=== PATIENT | female | born 1970 | race Caucasian/White ===

== ENCOUNTER → 2018-07-21 09:30 | Outpatient (CLI) | payer MEDICARE, SELFPAY ==
--- NOTE | 2018-07-21 09:37 | DI.MRI.S_ITS ---
PROCEDURE: MR CERVICAL SPINE WO CON INDICATIONS: RIght sided radiculopathy, non conclusive NCS/EMG, numbness TECHNIQUE: Noncontrast sagittal T1 spin echo and T2 fast spin echo, sagittal STIR, foraminal oblique sagittal T2 fast spin echo, and axial gradient echo or T2 fast spin echo through the cervical spine. COMPARISON: None. FINDINGS: Image quality: Excellent. Alignment and Curvature: Straightening of the normal cervical lordosis Bone Marrow: Marrow demonstrates normal overall signal. Spinal Cord: Visualized spinal cord has normal size and signal. No cerebellar tonsillar herniation. Paraspinous Soft Tissues: No paravertebral masses. Prevertebral soft tissues are normal in thickness. C2-C3: Normal appearance. C3-C4: Bilateral uncovertebral arthropathy and posterior intervening disc osteophyte complex, and bilateral facet disease. Mild canal narrowing with effacement of the anterior thecal sac. Mild to moderate right foraminal stenosis, and severe left foraminal narrowing. C4-C5: Bilateral uncovertebral arthropathy and posterior intervening disc osteophyte complex, and bilateral facet arthropathy. Mild canal narrowing. Severe right and left foraminal stenoses. C5-C6: Bilateral uncovertebral arthropathy and posterior intervening disc osteophyte complex, which is asymmetric, right greater than left. Bilateral facet arthropathy. Minimal canal narrowing. Severe right foraminal stenosis. Severe left foraminal stenosis. C6-C7: Bilateral uncovertebral arthropathy and posterior intervening disc osteophyte complex, and bilateral facet arthropathy. Mild right foraminal narrowing. Severe left foraminal stenosis. C7-T1: No central canal narrowing. No right foraminal stenosis. Moderate to severe left foraminal narrowing. IMPRESSION: Multilevel severe left foraminal stenoses as detailed above from C3-T1. No high-grade canal stenosis. Severe right C4-C5 and C5-C6 foraminal narrowing. Dictated by: Jacques Kwan M.D. on 07/21/2018 at 10:41 Approved by: Jacques Kwan M.D. on 07/21/2018 at 10:54
== END ==
PROVIDERS: PCP Family Medicine; Visit Provider Family Medicine
DX: M47.22 Other spondylosis with radiculopathy, cervical region (principal); M48.02 Spinal stenosis, cervical region; G62.9 Polyneuropathy, unspecified; R20.0 Anesthesia of skin
CPT/HCPCS: 72141

== ENCOUNTER → 2018-10-02 11:23 | Outpatient (CLI) | payer MEDICARE, SELFPAY ==
[2018-10-02 11:53] LABS: Add Manual Diff / Slide Review NO; Basophils Absolute Auto 100 /uL (0-100); Basophils Percent Auto 0.8 % (0-2); Eosinophils Absolute Auto 0 /uL (0-450); Eosinophils Percent Auto 0.5 % (2-4); Hematocrit 40.6 % (36-46); Hemoglobin 13.4 g/dL (12.0-16.0); Lymphocytes Absolute Auto 2300 /uL (1100-4500); Lymphocytes Percent Auto 28.2 % (25-40); Mean Corpuscular Hemoglobin 30.9 PG (26-34); Mean Corpuscular Volume 93.5 fL (80-100); Monocytes Absolute Auto 300 /uL (0-900); Monocytes Percent Auto 4.2 % (3-14); Neutrophils Absolute Auto 5400 /uL (1500-7000); Neutrophils Percent Auto 66.3 % (50-75); Platelet Count 410 X10^3/uL (150-400); Red Blood Cell Count 4.34 X10^6/uL (4.0-5.2); Red Cell Distribution Width 15.1 % (11.6-14.8); White Blood Cell Count 8.2 X10^3/uL (4.5-11.0)
[2018-10-02 12:29] LABS: Alanine Aminotransferase 31 IU/L (9-52); Albumin 4.4 g/dL (3.5-5.0); Albumin Globulin Ratio 1.5 (1.0-2.8); Alkaline Phosphatase 74 U/L (38-126); Aspartate Aminotransferase 29 IU/L (14-36); BUN Creatinine Ratio 16.3 (6-22); Bilirubin Total 0.3 mg/dL (0.2-1.3); Blood Urea Nitrogen 13 mg/dL (7-17); Calcium 9.5 mg/dL (8.4-10.2); Carbon Dioxide 28 mmol/L (22-32); Chloride 99 mmol/L (98-107); Cholesterol 175 mg/dL (140-199); Estimated Glomerular Filt Rate > 60.0 mL/min (>60); Globulin 2.9 g/dL (1.7-4.1); Glucose 138 mg/dL (70-100); HDL Cholesterol 35 mg/dL (40-60); HEMOLYSIS < 15 (0-50); LDL Cholesterol Calculated 106 mg/dL (<100); Potassium 3.5 mmol/L (3.4-5.1); Sodium 138 mmol/L (137-145); Total Protein 7.3 g/dL (6.3-8.2); Triglycerides 171 mg/dL (35-150)
[2018-10-02 12:47] LABS: TSH w/ Reflex to FT4 1.84 uIU/mL (0.47-4.68)
== END ==
PROVIDERS: PCP Family Medicine; Visit Provider Family Medicine
DX: I10 Essential (primary) hypertension (principal); N92.0 Excessive and frequent menstruation with regular cycle; E66.01 Morbid (severe) obesity due to excess calories
CPT/HCPCS: 36415; 80053; 80061; 84443; 85025

== ENCOUNTER → 2018-10-06 14:56 | Outpatient (REF) | payer MEDICARE, SELFPAY | LOC: LAB 14:56 | PROVIDERS: PCP Family Medicine; Visit Provider Specialist | CPT/HCPCS: 85610 ==

== ENCOUNTER 2018-11-28 08:39 | Day surgery (SDC) | payer MEDICARE, SELFPAY ==
[2018-11-18 12:22] VITALS: BMI 49.4
[2018-11-28] VITALS (12 sets, daily range): BP systolic 112–165; BP diastolic 68–99; PULSE 62–93; RESP 9–32; TEMP 36.1–36.5; O2SAT 91–97; BMI 48.6
--- NOTE | 2018-11-28 | PATH_ITS ---
[facility] Accession Number: [id number] . 01 Material submitted: . endometrium - ENDOMETRIUM . 02 Diagnosis: Endometrium: Portions of disordered proliferative endometrium; negative for glandular hyperplasia, cytologic atypia, and malignancy. Portions of myometrium, suggestive of possible submucosal leiomyoma, if clinical and imaging findings are concordant. Negative for atypia or malignancy. MRV/12/01/2018 . 02 Electronically signed: . Trish Zhong MD, Pathologist NPI- [id number] . 01 Gross description: . ENDOMETRIUM: Received in formalin are minute fragments of mucoid and hemorrhagic material measuring 0.8 x 0.7 x 0.3 cm in aggregate. Submitted in toto in 1 cassette. /DM /DM . 02 Pathologist provided ICD-10: N85.00 . 02 CPT . 823243 Performed at: 01 [facility] [address], [place], [place] [id number] MD Az Yates MD Phone: [phone] Performed at: 02 [facility] [address] [place], [place] [id number] MD Kylee Ulloa MD Phone: [phone]
--- NOTE | 2018-11-28 07:42 | P.HPOB_ITS ---
History of Present Illness Reason for admission: vaginal bleeding (Menorrhagia) Narrative: Karime Joe is a 48 year old female admitted for endometrial ablation for menorrhagia FORMERLY [facility], [facility]–1983 Medical History (Updated 11/28/18 @ 07:41 by Virginia Fountain MD) RLS (restless legs syndrome) (Acute) Anxiety (Chronic) Asthma (Chronic) Chronic back pain (Chronic) Depression (Chronic) Foot pain (Chronic) Lumbar spine pain (Chronic) Shoulder pain (Chronic) Sore muscles (Chronic) Abnormal Pap smear of cervix (Resolved) Surgical History (Updated 05/16/18 @ 17:38 by Margi Mejia DO) Anesthesia (Resolved) History of shoulder surgery (Resolved ~2010) Status post trigger finger release (Resolved ~2015) History of carpal tunnel repair (~1996) Status post delivery (~1993) Status post delivery (~1995) Status post tubal ligation (~1995) Family History (Updated 02/15/16 @ 00:00 by Conversion Provider) Grandfather Cancer Mother Cervical cancer Early menopause Goiter Hypothyroid Diabetes mellitus Hypertension Social History household members: family Smoking Status: Former smoker Family History (Updated 02/15/16 @ 00:00 by Conversion Provider) Grandfather Cancer Mother Cervical cancer Early menopause Goiter Hypothyroid Diabetes mellitus Hypertension Social History household members: family Smoking Status: Former smoker Meds Home Medications Medication Instructions Recorded Confirmed Type CA PANTOTHENATE/FOLIC ACID/VIT 1 tab PO QDAY #0 08/04/12 07/09/18 History (MULTIVITAMIN) [calcium] #0 03/02/13 07/09/18 History [marijuana] #0 03/16/16 07/09/18 History amitriptyline 50 mg PO HS #60 tab 06/19/17 07/09/18 Rx albuterol sulfate HFA 90 2 puff INHALATION Q4HP PRN #1 inh 01/08/18 07/09/18 Rx mcg/actuation aerosol inhaler omeprazole 40 mg PO QDAY #60 cap 03/17/18 11/28/18 Rx chlorthalidone 25 mg tablet 25 mg PO QDAY #30 tab 08/18/18 11/28/18 Rx meloxicam 15 mg tablet 15 mg PO DAILY #10 tab 10/02/18 Rx clonidine HCl 0.2 mg PO TID #90 tab 10/10/18 11/28/18 Rx pramipexole 0.5 mg tablet See Rx Instructions PO HS #60 tab 10/17/18 11/28/18 Rx venlafaxine ER 225 mg 225 mg PO QDAY #30 tab 10/24/18 11/28/18 Rx tablet,extended release 24 hr metaxalone 800 mg tablet 800 mg PO TID PRN #30 tab 11/05/18 11/28/18 Rx Allergies Allergy/AdvReac Type Severity Reaction Status Date / Time naproxen [NAPROXEN] Allergy Severe THROAT Verified 11/28/18 09:17 SWELLING gabapentin [GABAPENTIN] Allergy Mild MAKES Verified 11/28/18 09:17 RESTLESS LEGS WORSE tomato [TOMATO] Allergy Mild BLISTERS Verified 11/28/18 09:17 ON LIPS NSAIDS (Non-Steroidal Allergy Unknown Verified 11/28/18 09:17 Anti-Inflamma [NSAIDS (NON-STEROIDAL ANTI-INFLAMMA] tramadol [From ULTRAM] Allergy Unknown vomiting Verified 11/28/18 09:17 Review of Systems Review of Systems Patient has severe dysmenorrhea and menorrhagia. She had improvement of her bleeding with Depo-Provera but it caused her extreme weight gain. All systems reviewed & are unremarkable except as noted in HPI and below Exam Vital Signs (past 8 hours): Blood pressure 125/77, pulse of 80 Narrative Exam Narrative: HEENT exam within normal limits. Lungs are clear to auscultation and percussion. Heart is regular rate and rhythm no S3-S4 or murmurs. No thyromegaly. Abdomen is obese with no obvious organomegaly. Normal external genitalia, vagina, cervix. Uterus was not enlarged by ultrasound and endometrial biopsy was negative on 11/12/2018. No adnexal masses on ultrasound. Extremities without edema and nontender Assessment & Plan (1) Morbid obesity with body mass index (BMI) greater than or equal to 50: Current visit: No Status: Chronic (2) Menorrhagia with irregular cycle: Current visit: No Status: Acute Assessment & Plan narrative: Patient with severe dysmenorrhea and menorrhagia who is requesting endometrial ablation. Patient is using a tubal ligation for control. She is aware that endometrial ablation may not control her bleeding and pain. She is aware that she might have scar tissue form inside of her uterus that might cause pain and require hysterectomy to improve. Risk of perforation of the uterus with damage to internal. Abdomen structures such as bowel and bladder discussed. Minimal risk for infection. Possible reaction to medications. Consent form was signed and questions answered.
[2018-11-28] MEDS: LACTATED RINGERS 1,000 ML 100 ML IV ×2 (09:34→11:14)
--- NOTE | 2018-11-28 10:32 | PM.PREOP ---
Pre-operative Note Interval Note History & Physical reviewed/Exam performed by Physician: Yes Changes to H&P: No
--- NOTE | 2018-11-28 11:10 | SUR.OPER ---
Lithotomy on padded OR bed, head on pillow, arms secured on padded arm boards at <90 degrees abduction. Legs secured in padded yellow fins stirrups.
[2018-11-28] MEDS: BUPIVACAINE 0.5% W/ EPI (PF) VIAL 30 ML INJ (12:35)
--- NOTE | 2018-11-28 12:39 | PM.OP.1 ---
Operative Date/Time/Diagnoses Date of procedure: 11/28/18 Time of procedure: 12:39 Pre-op diagnosis: Menorrhagia and dysmenorrhea Post-op diagnosis: same Procedure & Clinicians Procedure: Attempt at NovaSure ablation which was unsuccessful, hysteroscopy with endometrial resection, inadvertent perforation of the uterus at the fundus requiring laparoscopy to document no internal bleeding or damage Same procedure as scheduled: No (Hysteroscopic resection of endometrium and laparoscopy) Indications: Patient with longstanding dysmenorrhea and menorrhagia uncontrolled by other options who requested endometrial ablation. Surgeon: Virginia Fountain Click Yes if Unassisted: Yes Anesthesia Type: General Operative Notes Closure Type: primary Specimen(s): other (Endometrial resection) Estimated Blood Loss (mL): 10 Blood products transfused: none Procedure in detail: Patient was brought to the operating room where she underwent general anesthesia. She was placed in low Yellofin stirrups and prepped and draped in the usual sterile fashion. A check system was reviewed prior to the beginning of the case. Patient had just urinated so no catheterization was performed initially. Warming was with blankets, pulsatile stockings in place and functional, initially IV antibiotics were not indicated. 2 g of Ancef were given after discovering uterine perforation. A single-tooth tenaculum was placed on the anterior lip of the cervix. The cervix was dilated to a #6 Hegar dilator. The NovaSure sound was used to measure the cervix length at 3 cm with the uterine length at 9 cm. The NovaSure device was set at 6 cm uterine length. It was difficult initially to get a uterine width but then it was determined to be 4.5 cm. When the attempt was made to document uterine cavity integrity the integrity was not there. The device was removed. Hysteroscope was placed through the cervix into the uterus with sorbitol solution running in under constant suction. Initially it there did not appear to be any obvious area of perforation. The endometrium was resected with the loop cautery set at 80 w. A small amount of cauterization with the ball cautery was undertaken at 60 w. There appeared to be more than a 1000 cc of loss of of the sorbital so the procedure was stopped. Patient was re-prepped and draped. A [employer] uterine manipulator was placed through the cervix into the uterus with a 3 cc of air put in the balloon. The area of the trocars were injected with 0.5% Marcaine with epinephrine. Incision with made in the umbilicus with the scalpel. The Veress needle was placed in the abdomen and the abdomen insufflated with approximately 3 L of CO2. The 5 mm trocar was placed under direct visualization. There did not appear to be any damage was placement of the trocar. 5 mm trocars were placed in the right left lower quadrant under direct visualization without apparent damage. There was adhesion of the omentum to the anterior abdominal wall in the midline. Right and left tubes and ovaries were found to be normal. Clear fluid was removed with suction. The top of the uterus had a small hole that was not actively bleeding. The CO2 was allowed to escape from the abdomen. The trocars were removed and the skin was closed with 4 0 Monocryl. Counts of instruments and sponges were correct. Patient went to recovery room in good condition. Complications: other (Uterine perforation requiring laparoscopy but no damage to internal structures) Condition: stable Disposition: same day surgery Plan for aftercare: Home if awake and stable
[2018-11-28] MEDS: CEFAZOLIN 2 GM/100 ML FROZ.PIGGY IV (12:43)
[2018-11-28] MEDS: ONDANSETRON 4 MG/2 ML INJ IV ×2 (13:35→14:09)
--- NOTE | 2018-11-28 14:13 | SUR.PHASEII ---
Pt drowsy. C/O stomach pain, denied nausea. Zofran given, quease with pt. Family at bedside. Scant bloody drainage to bandaids x3, scant pink drainage to suman-pad. Call light within reach.
--- NOTE | 2018-11-28 16:15 | SUR.PHASEII ---
ASSUMED CARE OF PT AT 1600. PT AMBULATED TO BATHROOM WITHOUT ANY DIFFICULTLY. REVIEWED DC INSTRUCTIONS WITH PT AND PT FRIEND. NO FURTHER QUESTIONS OR CONCERNS VOICED. DRSG'S TO ABD OBSERVED TO BE C/D/I. MARTHA-PAD OBSERVED TO HAVE SMALL AMOUNT OF OLD BLOOD. PT APPEARED COMFORTABLE AT THAT TIME. IV DC'D AND INTACT. PT DRESSED SELF AND DC TO HOME IN STABLE CONDITION.
== END 2018-11-28 16:15 | disposition home or self-care (01) ==
PROVIDERS: PCP Family Medicine; Visit Provider Specialist
PROC: 0U5B8ZZ Destruction of Endometrium, Via Natural or Artificial Opening Endoscopic (ICD-10-PCS; CPT 58563; principal; 2018-11-28 10:15)
PROC: 0UDB8ZZ Extraction of Endometrium, Via Natural or Artificial Opening Endoscopic (ICD-10-PCS; CPT 58558; 2018-11-28 10:15)
PROC: (CPT 49320; 2018-11-28 10:15)
DX: N92.1 Excessive and frequent menstruation with irregular cycle (principal); N94.6 Dysmenorrhea, unspecified; N99.71 Accidental puncture and laceration of a genitourinary system organ or structure during a genitourinary system procedure; E66.01 Morbid (severe) obesity due to excess calories; J45.909 Unspecified asthma, uncomplicated; G25.81 Restless legs syndrome; K21.9 Gastro-esophageal reflux disease without esophagitis; F41.9 Anxiety disorder, unspecified; Z68.43 Body mass index [BMI] 50.0-59.9, adult; Z87.891 Personal history of nicotine dependence
CPT/HCPCS: 49320; 58563; 88305; J0330; J0690; J1100; J2405; J2704; J3010

== ENCOUNTER 2019-01-11 11:11 | Emergency (ER) | payer MEDICARE, MEDICAID, SELFPAY ==
[2019-01-11 11:23] VITALS: BP 159/89; PULSE 96; RESP 18; TEMP 36.4; O2SAT 97; BMI 48.9
--- NOTE | 2019-01-11 11:41 | PC.NURSE ---
Pt out in the sun and has sunburn bilateral legs, right>left. Applied a mix of silvidene cream and lidocaine ointment to area then covered it with telfa and kerlix. Instructed pt how to apply.
--- NOTE | 2019-01-11 12:52 | ED.EXTPRO ---
HPI - Extremity Problem General Chief complaint: Extremity Problem,Nontraumatic Stated complaint: LEFT SHOULDER PAIN,CRAMPING AND BACK PAIN Time Seen by Provider: 01/11/19 11:13 Source: patient and family Mode of arrival: ambulatory Limitations: no limitations History of Present Illness HPI Narrative: Patient comes to the emergency department complaining of left shoulder pain for last several weeks since a pulling injury. Patient also complains of her left-sided sciatica ?acting up? since recurrence of her uterine cramps. Patient states she has had ongoing cramps in her uterus, and his seen Dr. Fountain, who has done an ablation. Patient states that the ablation seem to work initially, but that now, she gets cramps and irregular bleeding again like she used to. She states that Dr. Fountain is planning to do a hysterectomy next if the patient's symptoms continue. The patient states that her uterine cramping has always set off her back pain and sciatica. Patient states that she has not had any specific injury to the area to set off the symptoms. She denies any new or different symptoms. No fevers. No dysuria. No abdominal pain other than the cramping. No nausea or vomiting. Patient has a history of chronic pain syndrome, as well as fibromyalgia, and has multiple medication allergies, including NSAIDs, Ultram, and most muscle relaxers, as well as gabapentin. The patient states she is mainly here for symptomatic management. She states that she has talked to Dr. Mejia about potentially getting an MRI of her shoulder, and that Dr. Mejia was working on this. No other complaints at this time. Related Data Home Medications Medication Instructions Recorded Confirmed CA PANTOTHENATE/FOLIC ACID/VIT 1 tab PO QDAY #0 08/04/12 01/11/19 (MULTIVITAMIN) [calcium] #0 03/02/13 12/05/18 [marijuana] #0 03/16/16 12/05/18 Previous Rx's Medication Instructions Recorded albuterol sulfate HFA 90 2 puff INHALATION Q4HP PRN #1 inh 01/08/18 mcg/actuation aerosol inhaler omeprazole 40 mg PO QDAY #60 cap 03/17/18 clonidine HCl 0.2 mg PO TID #90 tab 10/10/18 pramipexole 0.5 mg tablet See Rx Instructions PO HS #60 tab 10/17/18 venlafaxine ER 225 mg 225 mg PO QDAY #30 tab 10/24/18 tablet,extended release 24 hr meloxicam 15 mg tablet 15 mg PO DAILY #30 tab 12/12/18 metaxalone 800 mg tablet 800 mg PO TID PRN #30 tab 12/12/18 chlorthalidone 25 mg tablet 25 mg PO QDAY #30 tab 12/29/18 hydrocodone-acetaminophen 1 tab PO Q6H PRN #7 tab 01/11/19 Allergies Allergy/AdvReac Type Severity Reaction Status Date / Time naproxen [NAPROXEN] Allergy Severe THROAT Verified 01/11/19 11:23 SWELLING gabapentin [GABAPENTIN] Allergy Mild MAKES Verified 01/11/19 11:23 RESTLESS LEGS WORSE tomato [TOMATO] Allergy Mild BLISTERS Verified 01/11/19 11:23 ON LIPS NSAIDS (Non-Steroidal Allergy Unknown Verified 01/11/19 11:23 Anti-Inflamma [NSAIDS (NON-STEROIDAL ANTI-INFLAMMA] tramadol [From ULTRAM] Allergy Unknown vomiting Verified 01/11/19 11:23 Review of Systems Constitutional Denies chills, Denies fever(s), Denies lethargy and Denies weakness Eyes Denies change in vision, Denies eye discharge, Denies irritation and Denies loss of vision ENT Ears, Nose, Mouth, and Throat: Denies change in voice, Denies neck pain and Denies sore throat Cardiovascular Denies chest pain, Denies irregular heart rhythm, Denies lightheadedness, Denies palpitations, Denies dyspnea, Denies dyspnea on exertion and Denies orthopnea Respiratory Denies cough, Denies dyspnea, Denies dyspnea on exertion and Denies wheezing Gastrointestinal Gastrointestinal: Denies change in bowel habits, Reports cramping, Denies diarrhea, Denies nausea and Denies vomiting Genitourinary Denies hematuria, Denies flank pain, Denies urinary incontinence and Denies urinary urgency Musculoskeletal Denies neck pain Comments: Back pain; sciatica; left shoulder pain. Integumentary/Breasts Denies pruritus, Denies erythema, Denies rash and Denies wounds Neurologic Denies confusion, Denies loss of vision and Denies weakness Psychiatric Denies anxiety, Denies confusion, Denies depression, Denies homicidal ideation and Denies suicidal ideation Endocrine Denies palpitations Hematologic/Lymphatic Denies easy bruising Allergic/Immunologic Denies wheezing PFS Medical History RLS (restless legs syndrome) (Acute) Anxiety (Chronic) Asthma (Chronic) Chronic back pain (Chronic) Depression (Chronic) Foot pain (Chronic) Lumbar spine pain (Chronic) Shoulder pain (Chronic) Sore muscles (Chronic) Abnormal Pap smear of cervix (Resolved) Surgical History Anesthesia (Resolved) History of shoulder surgery (Resolved ~2010) Status post trigger finger release (Resolved ~2015) History of carpal tunnel repair (~1996) Status post delivery (~1993) Status post delivery (~1995) Status post tubal ligation (~1995) Family History (Updated 02/15/16 @ 00:00 by Conversion Provider) Grandfather Cancer Mother Cervical cancer Early menopause Goiter Hypothyroid Diabetes mellitus Hypertension Social History household members: family Smoking Status: Former smoker Family History Grandfather Cancer Mother Cervical cancer Early menopause Goiter Hypothyroid Diabetes mellitus Hypertension Social History household members: family Smoking Status: Former smoker Exam Initial Vital Signs Initial Vital Signs: Vital Signs Temperature 97.5 F L 01/11/19 11:23 Pulse Rate 96 H 01/11/19 11:23 Respiratory Rate 18 01/11/19 11:23 Blood Pressure 159/89 H 01/11/19 11:23 Pulse Oximetry 97 01/11/19 11:23 Course Course Narrative: Patient was treated symptomatically in the emergency department with a dose of IM Dilaudid. The patient had ongoing symptoms, for which she had already seen her primary care physician, and did not display any signs or symptoms concerning for a more serious cause of her condition. As such, I did not order further workup. I gave the patient a small prescription for Vicodin, 7 tablets. This patient has an ongoing chronic pain history, and has a stated allergy to every other form of pain control besides narcotics. I have advised her to follow up with her primary care physician to discuss a more long-term plan to manage her pain, as well as to discuss any potential further workup. We have discussed the usual indications for return. Orders Ordered: Discontinued Medications Hydromorphone HCl (Dilaudid) 1 mg IM NOW ONE Stop: 01/11/19 12:52 Last Admin: 01/11/19 13:19 Dose: 1 mg Vital Signs - 8 hr 01/11/19 11:23 01/11/19 13:44 Temperature 97.5 F L Pulse Rate 96 H 80 Respiratory Rate 18 18 Blood Pressure 159/89 H 146/80 H Pulse Oximetry 97 93 MDM - Extremity (Nontraumatic) Medical Records Attestation: I reviewed the patient's medical records. Discharge Plan Departure Patient Disposition: Home Clinical Impression: Acute shoulder pain Qualifiers: Laterality: left Qualified Code(s): M25.512 - Pain in left shoulder Back pain Qualifiers: Back pain location: low back pain Chronicity: chronic Back pain laterality: left Sciatica presence: with sciatica Sciatica laterality: sciatica of left side Qualified Code(s): M54.42 - Lumbago with sciatica, left side Discharge Date/Time: 01/11/19 13:49 Instructions: DI for Back Pain With Sciatica, DI for Shoulder Pain Activity Restrictions/Additional Instructions: Please call your primary care physician tomorrow morning to set up a follow-up appointment for further management of your symptoms. Prescriptions: New hydrocodone-acetaminophen 5-325 mg tablet 1 tab PO Q6H PRN (Reason: pain) Qty: 7 RF: 0 No Action CA PANTOTHENATE/FOLIC ACID/VIT (MULTIVITAMIN) 1 tab PO QDAY Qty: 0 RF: 0 [calcium] Qty: 0 RF: 0 [marijuana] Qty: 0 RF: 0 omeprazole 20 mg capsule,delayed release(DR/EC) 40 mg PO QDAY Qty: 60 RF: 11 clonidine HCl 0.2 mg tablet 0.2 mg PO TID Qty: 90 RF: 1 pramipexole 0.5 mg tablet See Rx Instructions PO HS Qty: 60 RF: 2 venlafaxine 225 mg tablet extended release 24hr 225 mg PO QDAY Qty: 30 RF: 2 meloxicam 15 mg tablet 15 mg PO DAILY Qty: 30 RF: 0 metaxalone 800 mg tablet 800 mg PO TID PRN (Reason: muscle pain) Qty: 30 RF: 0 chlorthalidone 25 mg tablet 25 mg PO QDAY Qty: 30 RF: 3 albuterol sulfate [Ventolin HFA] 90 mcg/actuation HFA aerosol inhaler 2 puff INHALATION Q4HP PRN (Reason: bronchospasm) Qty: 1 RF: 2 Referrals: Margi Mejia DO [Primary Care Provider] -
[2019-01-11] MEDS: HYDROMORPHONE 1 MG INJ IM (13:19)
[2019-01-11 13:44] VITALS: BP 146/80; PULSE 80; RESP 18; O2SAT 93
== END 2019-01-11 13:49 | disposition home or self-care (01) ==
PROVIDERS: Emergency Provider Emergency Medicine; PCP Family Medicine
DX: M25.512 Pain in left shoulder (principal); M54.42 Lumbago with sciatica, left side; X50.9XXA Other and unspecified overexertion or strenuous movements or postures, initial encounter
CPT/HCPCS: 96372; 99282; 99283; J1170

== ENCOUNTER → 2019-02-03 16:03 | Outpatient (CLI) | payer MEDICARE, SELFPAY ==
--- NOTE | 2019-02-03 16:08 | DI.MRI.S_ITS ---
PROCEDURE: MR SHOULDER LT WO CON INDICATIONS: left shoulder pain TECHNIQUE: Noncontrast oblique coronal T2 fast spin echo with fat saturation, oblique sagittal T1 spin echo and T2 fast spin echo with fat saturation, axial T1 spin echo and T2 fast spin echo with fat saturation through the shoulder. COMPARISON: None. FINDINGS: Image quality: Motion degradation, and suboptimal study due to patient positioning Rotator cuff: Supraspinatus tendinopathy with partial thickness articular bursal sided tear. Infraspinatus tendinopathy and thickening. The teres minor appears grossly intact. Subscapularis tendinopathy without discrete tear. No atrophy of the rotator cuff musculature. Bones and bursae: No bone marrow contusions or fractures. Mild acromioclavicular joint degeneration. The acromion demonstrates conventional anatomy, without an os acromiale. Mild subacromial-subdeltoid bursitis. Capsule and soft tissues: No discrete labral tear. There is mild probably age related degeneration of superior labrum. The long head of the biceps tendon demonstrates normal location and morphology. The rotator interval appears normal, without fibrosis. The coracohumeral ligament is normal in thickness. IMPRESSION: Supraspinatus partial-thickness articular and bursal sided tear. No full-thickness or retracted defect seen. Mild infraspinatus tendinopathy. Subscapularis tendinopathy and thickening. Dictated by: Jacques Kwan M.D. on 02/03/2019 at 17:31 Approved by: Jacques Kwan M.D. on 02/03/2019 at 17:36
== END ==
PROVIDERS: PCP Family Medicine; Visit Provider Family Medicine
DX: S46.812A Strain of other muscles, fascia and tendons at shoulder and upper arm level, left arm, initial encounter (principal)
CPT/HCPCS: 73221

== ENCOUNTER → 2019-02-12 11:44 | Outpatient (CLI) | payer MEDICARE, SELFPAY ==
[2019-02-12 12:30] LABS: BUN Creatinine Ratio 21.4 (6-22); Blood Urea Nitrogen 15 mg/dL (7-17); Calcium 10.1 mg/dL (8.4-10.2); Carbon Dioxide 33 mmol/L (22-32); Chloride 98 mmol/L (98-107); Estimated Glomerular Filt Rate > 60.0 mL/min (>60); Glucose 89 mg/dL (70-100); HEMOLYSIS < 15 (0-50); Potassium 3.6 mmol/L (3.4-5.1); Sodium 141 mmol/L (137-145)
[2019-02-12 12:35] LABS: Hemoglobin A1C% w Est Avg Glu 5.2 % (4.0-6.0)
== END ==
PROVIDERS: PCP Family Medicine; Visit Provider Family Medicine
DX: R73.01 Impaired fasting glucose (principal)
CPT/HCPCS: 36415; 80048; 83036

== ENCOUNTER 2019-05-07 12:52 | Emergency (ER) | payer MEDICARE, SELFPAY ==
[2019-05-07 13:19] VITALS: BP 141/82; PULSE 99; RESP 16; TEMP 36.5; O2SAT 98
--- NOTE | 2019-05-07 13:56 | ED_ITS ---
HPI - Extremity Injury (Upper) <Luisa Hernandez PA-C - Last Filed: 05/07/19 19:08> General Chief Complaint: Extremity Injury, Upper Stated Complaint: re injured left shoulder Time Seen by Provider: 05/07/19 13:45 Source: patient Mode of arrival: Ambulatory Limitations: no limitations History of Present Illness HPI narrative: This 48-year-old female returns to ED due to recurrent left shou lder injury. She states that her chronic rotator cuff pain was actually getting better with home exercises, however 2 weeks ago she reached out to keep a bed frame from falling on her grandchild and injured it again. She states she has been unable to get in to see her PCP for this. She states it had started to get a little bit better but yesterday she injured it again. She stepped on a toy and slipped on a wood floor landing on her elbows and knees and felt like she jammed her shoulders. She states that the right shoulder does not hurt, hands and knees were a little bit sore but not particularly bothersome, left shoulder quite painful however. She states that pain is worse with movement. She denies any new weakness or paresthesia. She states pain radiates into her neck and around her shoulder but does not have any pain in her neck otherwise, she denies any other new injury. Related Data Home Medications Medication Instructions Recorded Confirmed multivitamin 1 tab PO DAILY #0 08/04/12 05/07/19 [marijuana] 1 dose MISCELLANEOUS PRN PRN #0 03/16/16 05/07/19 cholecalciferol (vitamin D3) 50 2,000 unit PO DAILY 02/12/19 05/07/19 mcg (2,000 unit) capsule chlorthalidone 25 mg PO DAILY 05/07/19 05/07/19 clonidine HCl 0.2 mg PO DAILY 05/07/19 05/07/19 omeprazole 20 mg PO DAILY 05/07/19 05/07/19 pramipexole 0.5 - 1 mg PO BEDTIME 05/07/19 05/07/19 pramipexole 0.5 mg PO QAM 05/07/19 05/07/19 venlafaxine 225 mg PO DAILY 05/07/19 05/07/19 Previous Rx's Medication Instructions Recorded albuterol sulfate 90 mcg/actuation 2 puff INHALATION Q4HP PRN #1 inh 01/08/18 aerosol inhaler metaxalone 800 mg tablet 800 mg PO TID PRN #90 tab 02/12/19 meloxicam 15 mg tablet 15 mg PO DAILY #30 tab 04/23/19 hydrocodone-acetaminophen 1 tab PO Q6H PRN #7 tab 05/07/19 Allergies Allergy/AdvReac Type Severity Reaction Status Date / Time naproxen [NAPROXEN] Allergy Severe THROAT Verified 05/07/19 13:22 SWELLING gabapentin [GABAPENTIN] Allergy Mild MAKES Verified 05/07/19 13:22 RESTLESS LEGS WORSE tomato [TOMATO] Allergy Mild BLISTERS Verified 05/07/19 13:22 ON LIPS NSAIDS (Non-Steroidal Allergy Unknown Verified 05/07/19 13:22 Anti-Inflamma [NSAIDS (NON-STEROIDAL ANTI-INFLAMMA] tramadol [From ULTRAM] Allergy Unknown vomiting Verified 05/07/19 13:22 Review of Systems <Luisa Hernandez PA-C - Last Filed: 05/07/19 19:08> Review of Systems ROS Unobtainable: All systems reviewed & are unremarkable except as noted in HPI and below Patient History <Luisa Hernandez PA-C - Last Filed: 05/07/19 19:08> Medical History Abnormal Pap smear of cervix (Resolved) Anxiety (Chronic) Asthma (Chronic) Chronic back pain (Chronic) Depression (Chronic) Foot pain (Chronic) GERD (gastroesophageal reflux disease) (Acute) Lumbar spine pain (Chronic) RLS (restless legs syndrome) (Acute) Shoulder pain (Chronic) Sore muscles (Chronic) Traumatic tear of supraspinatus tendon of left shoulder (Acute) Surgical History Anesthesia (Resolved) History of carpal tunnel repair (~1996) History of shoulder surgery (Resolved ~2010) Status post delivery (~1993) Status post delivery (~1995) Status post trigger finger release (Resolved ~2015) Status post tubal ligation (~1995) Social History household members: family Smoking Status: Former smoker alcohol intake frequency: 0-2 drinks per day Substance Use Type: marijuana Exam <Luisa Hernandez PA-C - Last Filed: 05/07/19 19:08> Narrative Exam Narrative: GENERAL APPEARANCE: Patient sitting comfortably, in no distress. LUNGS: Clear to auscultation bilaterally. HEART: Rate and rhythm regular without murmur, normal S1 and S2, no S3 or S4. MUSCULOSKELETAL: Left shoulder tender at the anterior lateral through posterior lateral margins throughout. No point tenderness over the clavicle. She is able to abduct to less than 90? with tenderness. Strength on resisted abduction and adduction appear intact. No tenderness over the distal left upper extremity or wrist. [employer] strength 5/5 NEUROVASCULAR: Left hand is warm and pink with brisk cap refill, sensation grossly intact Initial Vital Signs Initial Vital Signs: Vital Signs Temperature 97.7 F 05/07/19 13:19 Pulse Rate 99 H 05/07/19 13:19 Respiratory Rate 16 05/07/19 13:19 Blood Pressure 141/82 H 05/07/19 13:19 Pulse Oximetry 98 05/07/19 13:19 <Anjelica Drummond DO - Last Filed: 05/08/19 07:35> Initial Vital Signs Initial Vital Signs: Vital Signs Temperature 97.7 F 05/07/19 13:19 Pulse Rate 99 H 05/07/19 13:19 Respiratory Rate 16 05/07/19 13:19 Blood Pressure 141/82 H 05/07/19 13:19 Pulse Oximetry 98 05/07/19 13:19 Course <Luisa Hernandez PA-C - Last Filed: 05/07/19 19:08> Course Additional Information: Patient has known rotator cuff syndrome. This had been improving until re-injured. She did fall last night. No acute findings on x- ray today. Reviewed state controlled substance database and patient has not received any for several months. Given a small supply of [place] if needed for the next few days as this did help her symptoms somewhat while here. She will resume gentle [id number] exercises and follow up with her PCP next week Orders Ordered: Discontinued Medications Hydrocodone Bitart/Acetaminophen ([place] 5/325) 1 tab PO NOW ONE Stop: 05/07/19 14:16 Last Admin: 05/07/19 14:30 Dose: 1 tab Documented by: [place] Vital Signs Vital signs: Vital Signs - 8 hr 05/07/19 13:19 05/07/19 15:14 Temperature 97.7 F Pulse Rate 99 H 92 H Respiratory Rate 16 14 Blood Pressure 141/82 H Blood Pressure [Right Arm] 130/80 Pulse Oximetry 98 94 <Anjelica Drummond DO - Last Filed: 05/08/19 07:35> Orders Ordered: Discontinued Medications Hydrocodone Bitart/Acetaminophen ([place] 5/325) 1 tab PO NOW ONE Stop: 05/07/19 14:16 Last Admin: 05/07/19 14:30 Dose: 1 tab Documented by: [place] Vital Signs Vital signs: Vital Signs - 8 hr 05/07/19 13:19 05/07/19 15:14 Temperature 97.7 F Pulse Rate 99 H 92 H Respiratory Rate 16 14 Blood Pressure 141/82 H Blood Pressure [Right Arm] 130/80 Pulse Oximetry 98 94 MDM - Extremity Injury (Upper) <Luisa Hernandez PA-C - Last Filed: 05/07/19 19:08> Imaging Data shoulder: Radiologist's impression: [address] [address] XRay Report Signed Patient: Karime Joe EMR#: [id number] : 1970Acct:[id number] Age/Sex: 48 / FDate of Service: 05/07/19 Loc: ED Accession Number: [id number] Procedure: XR shoulder LT min 2V Ordering Provider: Luisa Hernandez P.A-C PROCEDURE: XR SHOULDER LT MIN 2V INDICATIONS: rot cuff synd, fall last night TECHNIQUE: 3 views of the shoulder were acquired. COMPARISON: [facility], SHOULDER MINIMUM 2VIEW RIGHT, 01/18/2017, 12:01. [facility], SHOULDER MINIMUM 2VIEW RIGHT, 02/28/2012, 15:44. FINDINGS: Bones: No fractures or dislocations. No suspicious bony lesions. Visualized ribs appear intact. Soft tissues: No suspicious soft tissue calcifications. IMPRESSION: Normal for age, source of current pain after trauma symptoms is not seen. Dictated by: Huan Pfeiffer M.D. on 05/07/2019 at 14:57 Approved by: Huan Pfeiffer M.D. on 05/07/2019 at 14:58 Discharge Plan Departure Patient Disposition: Home Clinical Impression: Rotator cuff syndrome Qualifiers: Laterality: left Qualified Code(s): M75.102 - Unspecified rotator cuff tear or rupture of left shoulder, not specified as traumatic Discharge Date/Time: 05/07/19 15:24 Instructions: DI for Rotator Cuff Injury Activity Restrictions/Additional Instructions: I think you have restrained your rotator cuff again, however there was no acute findings such as a broken bone on her x-ray. I have given you a little bit of pain medicine to have on hand for the next couple of days in case you need. Please avoid lifting and stressing the shoulder, but you can do gentle [id number] exercises like the pendulum that we talked about. Please make sure you do those few times a day to keep your range of motion. We have scheduled you for a follow-up with Dr. Mejia on Saturday, the , check in at 2:45 p.m., that will be good timing to assess your progress and see whether you may need further testing or a referral. Please return if you have any acutely worsening symptoms in the interim Prescriptions: New hydrocodone-acetaminophen 5-325 mg tablet 1 tab PO Q6H PRN (Reason: acute rotator cuff pain) Qty: 7 RF: 0 No Action multivitamin Tablet 1 tab PO DAILY Qty: 0 RF: 0 [marijuana] 1 dose miscellaneous PRN PRN (Reason: as directed) Qty: 0 RF: 0 meloxicam 15 mg tablet 15 mg PO DAILY Qty: 30 RF: 0 albuterol sulfate [Ventolin HFA] 90 mcg/actuation HFA aerosol inhaler 2 puff INHALATION Q4HP PRN (Reason: bronchospasm) Qty: 1 RF: 2 cholecalciferol (vitamin D3) 2,000 unit capsule 2,000 unit PO DAILY RF: 0 metaxalone 800 mg tablet 800 mg PO TID PRN (Reason: muscle pain) Qty: 90 RF: 1 pramipexole 0.5 mg tablet 0.5 - 1 mg PO BEDTIME RF: 0 chlorthalidone 25 mg tablet 25 mg PO DAILY RF: 0 pramipexole 0.5 mg tablet 0.5 mg PO QAM RF: 0 clonidine HCl 0.2 mg tablet 0.2 mg PO DAILY RF: 0 omeprazole 20 mg capsule,delayed release(DR/EC) 20 mg PO DAILY RF: 0 venlafaxine 225 mg tablet extended release 24hr 225 mg PO DAILY RF: 0 Referrals: Margi Mejia DO [Primary Care Provider] -
--- NOTE | 2019-05-07 14:15 | DI.RAD.S_ITS ---
PROCEDURE: XR SHOULDER LT MIN 2V INDICATIONS: rot cuff synd, fall last night TECHNIQUE: 3 views of the shoulder were acquired. COMPARISON: [facility], SHOULDER MINIMUM 2VIEW RIGHT, 01/18/2017, 12:01. [facility], SHOULDER MINIMUM 2VIEW RIGHT, 02/28/2012, 15:44. FINDINGS: Bones: No fractures or dislocations. No suspicious bony lesions. Visualized ribs appear intact. Soft tissues: No suspicious soft tissue calcifications. IMPRESSION: Normal for age, source of current pain after trauma symptoms is not seen. Dictated by: Huan Pfeiffer M.D. on 05/07/2019 at 14:57 Approved by: Huan Pfeiffer M.D. on 05/07/2019 at 14:58
[2019-05-07] MEDS: HYDROCODONE/ACET 5/325 TABLET 1 TAB PO (14:30)
[2019-05-07 15:14] VITALS: BP 130/80; PULSE 92; RESP 14; O2SAT 94
== END 2019-05-07 15:24 | disposition home or self-care (01) ==
PROVIDERS: Emergency Provider Internal Medicine; PCP Family Medicine
DX: M75.102 Unspecified rotator cuff tear or rupture of left shoulder, not specified as traumatic (principal)
CPT/HCPCS: 73030; 99282; 99283

== ENCOUNTER → 2019-05-25 08:46 | Outpatient (CLI) | payer MEDICARE, SELFPAY ==
--- NOTE | 2019-05-25 08:49 | DI.MRI.S_ITS ---
PROCEDURE: MR SHOULDER LT WO CON INDICATIONS: left shoulder injury TECHNIQUE: Noncontrast oblique coronal T2 fast spin echo with fat saturation, oblique sagittal T1 spin echo and T2 fast spin echo with fat saturation, axial T1 spin echo and T2 fast spin echo with fat saturation through the shoulder. COMPARISON: [facility], MR, MR SHOULDER LT WO CON, 02/03/2019, 16:15. FINDINGS: Image quality: Diagnostic. Rotator cuff: No full-thickness or high-grade partial-thickness tear of the rotator cuff is identified. However, there is increased signal identified involving the supraspinatus and subscapularis tendons without significant tearing. The infraspinatus and teres minor tendons are unremarkable. There is no significant atrophy of the rotator cuff muscles. Bones and bursae: No acute fracture, dislocation, or suspicious osseous lesions is evident involving the osseous structures of the shoulder. There is a small glenohumeral joint effusion. Early degenerative changes of the glenohumeral joint are present. There are moderate degenerative changes of the acromioclavicular joint. Thickening of the subacromial subdeltoid bursa is present without significant fluid contained within the bursa. Capsule and soft tissues: Evaluation of the labrum and the glenohumeral ligaments is suboptimal without intra-articular contrast. However, there is increased signal identified in the labrocartilaginous junction along the superior margin of the labrum. No detached fragments are appreciated. The long head of the biceps tendon is normally positioned within the bicipital groove and appears to be grossly intact. No acute injuries are suspected involving the glenohumeral ligaments. IMPRESSION: 1. Mild supraspinatus and infraspinatus tendinopathy without significant tearing. 2. Small to moderate-sized superior labral tear. 3. Qanx-qw-[id number] degenerative changes of the left shoulder joints. 4. Small glenohumeral joint effusion. Dictated by: Dhiraj Lauren M.D. on 05/25/2019 at 9:56 Approved by: Dhiraj Lauren M.D. on 05/25/2019 at 10:17
== END ==
PROVIDERS: PCP Family Medicine; Visit Provider Family Medicine
DX: S49.92XA Unspecified injury of left shoulder and upper arm, initial encounter (principal); S43.432A Superior glenoid labrum lesion of left shoulder, initial encounter; M25.412 Effusion, left shoulder; X58.XXXA Exposure to other specified factors, initial encounter
CPT/HCPCS: 73221

== ENCOUNTER 2019-10-25 19:56 | Emergency (ER) | payer MEDICARE, SELFPAY ==
[2019-10-25 20:06] VITALS: BP 114/78; PULSE 100; RESP 16; TEMP 36.6; O2SAT 97; BMI 50.5
--- NOTE | 2019-10-25 21:14 | ED_ITS ---
HPI - Wound/Laceration General Chief Complaint: Wound/Laceration Stated Complaint: fishing hook in index finger right hand Time Seen by Provider: 10/25/19 20:59 Source: patient Mode of arrival: Ambulatory Limitations: no limitations History of Present Illness HPI narrative: 49-year-old female here for evaluation of a fishhook stuck in her right index finger. She is up-to-date on her tetanus shot. She stated that it was stuck in her right thumb this will however she removed it from the thumb but could not remove the fishhook from her finger Related Data Home Medications Medication Instructions Recorded Confirmed multivitamin 1 tab PO DAILY #0 08/04/12 06/15/19 [marijuana] 1 dose MISCELLANEOUS PRN PRN #0 03/16/16 06/15/19 cholecalciferol (vitamin D3) 50 2,000 unit PO DAILY 02/12/19 06/15/19 mcg (2,000 unit) capsule omeprazole 20 mg PO DAILY 05/07/19 06/15/19 Previous Rx's Medication Instructions Recorded albuterol sulfate 2.5 mg INHALATION Q4-6H PRN #90 ml 06/15/19 albuterol sulfate 90 mcg/actuation 2 puff INHALATION Q4HP PRN #1 inh 07/14/19 aerosol inhaler hydrocodone 5 mg-acetaminophen 325 1 tab PO Q4H PRN #30 tab 07/16/19 mg tablet venlafaxine 225 mg tablet,extended 225 mg PO DAILY #30 tab 08/03/19 release 24 hr chlorthalidone 25 mg tablet 25 mg PO DAILY #30 tab 08/24/19 meloxicam 15 mg tablet 15 mg PO DAILY #90 tab 09/04/19 tizanidine 4 mg capsule 4 mg PO Q6-8H PRN #30 cap 09/15/19 clonidine HCl 0.2 mg tablet 0.2 mg PO DAILY #90 tab 09/18/19 pramipexole 0.5 mg tablet See Rx Instructions .ROUTE 10/21/19 .COMPLEX #90 tab Allergies Allergy/AdvReac Type Severity Reaction Status Date / Time naproxen [NAPROXEN] Allergy Severe THROAT Verified 06/15/19 10:49 SWELLING gabapentin [GABAPENTIN] Allergy Mild MAKES Verified 06/15/19 10:49 RESTLESS LEGS WORSE tomato [TOMATO] Allergy Mild BLISTERS Verified 06/15/19 10:49 ON LIPS NSAIDS (Non-Steroidal Allergy Unknown Verified 06/15/19 10:49 Anti-Inflamma [NSAIDS (NON-STEROIDAL ANTI-INFLAMMA] tramadol [From ULTRAM] Allergy Unknown vomiting Verified 06/15/19 10:49 Review of Systems Musculoskeletal Comments: Right index finger pain Integumentary/Breasts Comments: [place] stuck in right index finger Hematologic/Lymphatic Hematologic/Lymphatic: Denies easy bleeding and Denies easy bruising Patient History Medical History Abnormal Pap smear of cervix (Resolved) Anxiety (Chronic) Asthma (Chronic) Chronic back pain (Chronic) Depression (Chronic) Foot pain (Chronic) GERD (gastroesophageal reflux disease) (Acute) Lumbar spine pain (Chronic) RLS (restless legs syndrome) (Acute) Shoulder pain (Chronic) Sore muscles (Chronic) Superior glenoid labrum lesion of left shoulder (Acute) Traumatic tear of supraspinatus tendon of left shoulder (Acute) Surgical History Anesthesia (Resolved) History of carpal tunnel repair (~1996) History of shoulder surgery (Resolved ~2010) Status post delivery (~1993) Status post delivery (~1995) Status post trigger finger release (Resolved ~2015) Status post tubal ligation (~1995) Social History household members: family Smoking Status: Former smoker Smoking Status: Former smoker alcohol intake frequency: 0-2 drinks per day Substance Use Type: marijuana Exam Initial Vital Signs Initial Vital Signs: Vital Signs Temperature 97.8 F 10/25/19 20:06 Pulse Rate 100 H 10/25/19 20:06 Respiratory Rate 16 10/25/19 20:06 Blood Pressure 114/78 10/25/19 20:06 Pulse Oximetry 97 10/25/19 20:06 Const General: cooperative and healthy appearing Cardio Pulses: radial pulses present on the right Skin Other: Patient with small puncture wound on the pad of her right thumb where the hook initially was. There is no active bleeding. Patient with a fishhook stuck on the pad of her right index finger. Neuro Sensory Exam: no sensory deficits noted Extrem General: capillary refill normal Procedures Foreign Body OTHER Time Out Performed: yes Site: right and other (Index finger) Description of foreign body: other ([place]) Sedation/Analgesia: none Technique: manual removal and incision made to facilitate removal Confirmed by:: direct visualization Complications: none Post-procedure exam: awake, alert Neurovascular: normal distal pulse Nerve Block Nerve Block 1: Time out performed: Yes Local Anesthetic: lidocaine 1% Amount of anesthesia used (mL): 4 Side: right Nerve Blocks: digital (Index finger) Procedure Successful: Yes Patient Tolerated Procedure: Well Complications: none Course Orders Ordered: Discontinued Medications Lidocaine/Sodium Bicarbonate (Buffered Lidocaine 10 Ml Syr) 10 ml INJ NOW ONE Stop: 10/25/19 21:19 Last Admin: 10/25/19 21:29 Dose: 10 ml Documented by: SCANAPO Vital Signs Vital signs: Vital Signs - 8 hr 10/25/19 20:06 Temperature 97.8 F Pulse Rate 100 H Respiratory Rate 16 Blood Pressure 114/78 Pulse Oximetry 97 MDM - Wound/Laceration MDM Narrative Medical decision making narrative: Patient is up-to-date on tetanus. The fishhook was removed without incident. Given return precautions and follow-up instructions. Discharge Plan Departure Patient Disposition: Home Clinical Impression: Fishing hook foreign body Qualifiers: Encounter type: initial encounter Qualified Code(s): W45.8XXA - Other foreign body or object entering through skin, initial encounter Discharge Date/Time: 10/25/19 21:45 Activity Restrictions/Additional Instructions: You can wash your hands like normal and I recommend that you wash your hands with soap and water frequently. Return to the emergency department for any new or worsening symptoms Prescriptions: No Action multivitamin Tablet 1 tab PO DAILY Qty: 0 RF: 0 [marijuana] 1 dose miscellaneous PRN PRN (Reason: as directed) Qty: 0 RF: 0 albuterol sulfate [Ventolin HFA] 90 mcg/actuation HFA aerosol inhaler 2 puff INHALATION Q4HP PRN (Reason: bronchospasm) Qty: 1 RF: 2 hydrocodone-acetaminophen 5-325 mg tablet 1 tab PO Q4H PRN (Reason: acute rotator cuff pain) Qty: 30 RF: 0 venlafaxine 225 mg tablet extended release 24 hr 225 mg PO DAILY Qty: 30 RF: 2 chlorthalidone 25 mg tablet 25 mg PO DAILY Qty: 30 RF: 3 meloxicam 15 mg tablet 15 mg PO DAILY Qty: 90 RF: 0 tizanidine 4 mg capsule 4 mg PO Q6-8H PRN (Reason: muscle spasticity) Qty: 30 RF: 0 clonidine HCl 0.2 mg tablet 0.2 mg PO DAILY Qty: 90 RF: 0 pramipexole 0.5 mg tablet See Rx Instructions .ROUTE .COMPLEX Qty: 90 RF: 0 albuterol sulfate 2.5 mg /3 mL (0.083 %) solution for nebulization 2.5 mg INHALATION Q4-6H PRN (Reason: shortness of breath or wheezing) Qty: 90 RF: 5 cholecalciferol (vitamin D3) 2,000 unit capsule 2,000 unit PO DAILY RF: 0 omeprazole 20 mg capsule,delayed release(DR/EC) 20 mg PO DAILY RF: 0 Referrals: Margi Mejia DO [Primary Care Provider] -
[2019-10-25] MEDS: LIDO 1%/SOD BICARB 8.4% (10ML) 10 ML SYRINGE INJ (21:29)
== END 2019-10-25 21:45 | disposition home or self-care (01) ==
PROVIDERS: Emergency Provider Emergency Medicine; PCP Family Medicine
DX: S61.240A Puncture wound with foreign body of right index finger without damage to nail, initial encounter (principal); W26.8XXA Contact with other sharp object(s), not elsewhere classified, initial encounter; W45.8XXA Other foreign body or object entering through skin, initial encounter
CPT/HCPCS: 64450; 99283

== ENCOUNTER → 2019-12-11 13:06 | Outpatient (CLI) | payer MEDICARE, SELFPAY ==
[2019-12-11 13:28] LABS: Add Manual Diff / Slide Review NO; Basophils Absolute Auto 100 /uL (0-100); Basophils Percent Auto 0.7 % (0-2); Eosinophils Absolute Auto 100 /uL (0-450); Hematocrit 39.3 % (36-46); Hemoglobin 13.3 g/dL (12.0-16.0); Lymphocytes Absolute Auto 2400 /uL (1100-4500); Lymphocytes Percent Auto 26.5 % (25-40); Mean Corpuscular HGB Conc 33.7 % (30-36); Mean Corpuscular Volume 95.2 fL (80-100); Monocytes Absolute Auto 700 /uL (0-900); Neutrophils Absolute Auto 5800 /uL (1500-7000); Neutrophils Percent Auto 63.8 % (50-75); Platelet Count 415 X10^3/uL (150-400); Red Blood Cell Count 4.14 X10^6/uL (4.0-5.2); Red Cell Distribution Width 14.8 % (11.6-14.8); White Blood Cell Count 9.1 X10^3/uL (4.5-11.0)
[2019-12-11 13:45] LABS: Alanine Aminotransferase 35 IU/L (<35); Albumin 4.4 g/dL (3.5-5.0); Albumin Globulin Ratio 1.5 (1.0-2.8); Alkaline Phosphatase 73 U/L (38-126); Aspartate Aminotransferase 40 IU/L (14-36); BUN Creatinine Ratio 27.5 (6-22); Bilirubin Total 0.5 mg/dL (0.2-1.3); Blood Urea Nitrogen 19 mg/dL (7-17); Calcium 9.6 mg/dL (8.4-10.2); Carbon Dioxide 36 mmol/L (22-32); Chloride 99 mmol/L (98-107); Cholesterol 167 mg/dL (140-199); Estimated Glomerular Filt Rate > 60.0 mL/min (>60); Glucose 87 mg/dL (70-100); HDL Cholesterol 36 mg/dL (40-60); HEMOLYSIS < 15 (0-50); LDL Cholesterol Calculated 100 mg/dL (<100); Potassium 3.4 mmol/L (3.4-5.1); Sodium 140 mmol/L (137-145); Total Protein 7.4 g/dL (6.3-8.2); Triglycerides 157 mg/dL (35-150)
[2019-12-11 14:12] LABS: TSH w/ Reflex to FT4 3.01 uIU/mL (0.47-4.68)
== END ==
PROVIDERS: PCP Family Medicine; Referring Provider Family Medicine; Visit Provider Family Medicine
DX: E66.01 Morbid (severe) obesity due to excess calories (principal); I10 Essential (primary) hypertension; N92.1 Excessive and frequent menstruation with irregular cycle; R73.01 Impaired fasting glucose
CPT/HCPCS: 36415; 80053; 80061; 84443; 85025

== ENCOUNTER → 2020-03-11 12:27 | Outpatient (CLI) | payer MEDICARE, MEDICAID, SELFPAY ==
[2020-03-11 14:26] LABS: Alanine Aminotransferase 29 IU/L (<35); Albumin 3.9 g/dL (3.5-5.0); Albumin Globulin Ratio 1.3 (1.0-2.8); Alkaline Phosphatase 72 U/L (38-126); Aspartate Aminotransferase 30 IU/L (14-36); BUN Creatinine Ratio 29.4 (6-22); Bilirubin Total 0.2 mg/dL (0.2-1.3); Blood Urea Nitrogen 20 mg/dL (7-17); Calcium 9.4 mg/dL (8.4-10.2); Carbon Dioxide 35 mmol/L (22-32); Chloride 98 mmol/L (98-107); Estimated Glomerular Filt Rate > 60.0 mL/min (>60); Globulin 3.1 g/dL (1.7-4.1); Glucose 82 mg/dL (70-100); HEMOLYSIS < 15 (0-50); Potassium 3.7 mmol/L (3.4-5.1); Sodium 138 mmol/L (137-145)
== END ==
PROVIDERS: PCP Family Medicine; Referring Provider Family Medicine; Visit Provider Family Medicine
DX: R94.5 Abnormal results of liver function studies (principal)
CPT/HCPCS: 36415; 80053

== ENCOUNTER 2020-04-15 13:29 | Emergency (ER) | payer MEDICARE, MEDICAID, SELFPAY ==
[2020-04-15] VITALS (8 sets, daily range): BP systolic 113–193; BP diastolic 56–116; PULSE 96–123; RESP 16–41; TEMP 36.9; O2SAT 93–98; BMI 48.4
--- NOTE | 2020-04-15 13:51 | DI.RAD.S_ITS ---
PROCEDURE: XR HAND RT MIN 3V INDICATIONS: hand injury TECHNIQUE: 3 views of the hand(s) acquired. [place] [facility] [place], 14:55. FINDINGS: Bones: No fractures or dislocations. Carpal bones are normally aligned. No suspicious bony lesions. Soft tissues: No suspicious soft tissue calcifications. IMPRESSION: No displaced fractures are detected. If there is point tenderness (or other clinical suspicion for a fracture not seen on these images) then a dedicated CT could be considered for further evaluation, as clinically appropriate. Dictated by: Efrain Nath M.D. on 04/15/2020 at 13:10 Approved by: Efrain Nath M.D. on 04/15/2020 at 13:11
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
[2020-04-15] MEDS: LIDOCAINE PATCH 1 EACH ADH..PATCH TOP (15:03)
== END 2020-04-15 15:54 | disposition home or self-care (01) ==
PROVIDERS: Emergency Provider Nurse Practitioner Family; PCP Family Medicine
DX: M79.641 Pain in right hand (principal); R00.0 Tachycardia, unspecified; V89.2XXA Person injured in unspecified motor-vehicle accident, traffic, initial encounter
CPT/HCPCS: 73130; 93005; 93010; 99282; 99284

== ENCOUNTER 2020-05-06 13:55 | Emergency (ER) | payer MEDICARE, SELFPAY ==
[2020-05-06 14:03] VITALS: BP 163/74; PULSE 109; RESP 16; TEMP 36.5; O2SAT 96
--- NOTE | 2020-05-06 14:22 | ED_ITS ---
HPI - Abdominal Pain <KERRY Burciaga - Last Filed: 05/06/20 18:29> General Chief Complaint: Abdominal Pain Stated Complaint: pain in groin Time Seen by Provider: 05/06/20 13:58 Source: patient Mode of arrival: Ambulatory Limitations: no limitations History of Present Illness HPI narrative: This is a 49-year-old female, former smoker, who has past medical history significant for hypertension, depression, back and shoulder pain, restless leg syndrome, GERD presents to ED with family member with chief complain of right groin pain for last 2-3 days. Patient denies fever, chills, n ausea, vomiting, diarrhea or associated symptoms. Patient rate pain as 6 to 7/10 and increases with walking and palpation and states through the roof and friend reports felt a mass on right groin region. Patient has previous abdominal surgeries, 2 C sections. Patient denies lifting heavy objects or straining since patient has history of back pain. Last bowel movements several times today which is not unusual for patient. Patient recalls she had hernia and she was a child. She had uterine ablation done by Dr. Fountain for severe cramping discomfort but states her cramps are now recurring with irregular vaginal bleeding in small amounts. She denies bloody stool or tarry stool. She had light vaginal bleeding this month but unsure of exact date. Related Data Home Medications Medication Instructions Recorded Confirmed multivitamin 1 tab PO DAILY #0 08/04/12 03/25/20 [marijuana] 1 dose MISCELLANEOUS PRN PRN #0 03/16/16 03/25/20 cholecalciferol (vitamin D3) 50 2,000 unit PO DAILY 02/12/19 03/25/20 mcg (2,000 unit) capsule omeprazole 20 mg PO DAILY 05/07/19 03/25/20 Previous Rx's Medication Instructions Recorded albuterol sulfate 2.5 mg INHALATION Q4-6H PRN #90 ml 06/15/19 albuterol sulfate 90 mcg/actuation 2 puff INHALATION Q4HP PRN #1 inh 07/14/19 aerosol inhaler clonidine HCl 0.2 mg tablet 0.2 mg PO DAILY #90 tab 11/11/19 hydrocodone 5 mg-acetaminophen 325 1 tab PO Q4H PRN #15 tab 12/14/19 mg tablet meloxicam 15 mg tablet 15 mg PO DAILY #90 tab 03/03/20 pramipexole 0.5 mg tablet See Rx Instructions .ROUTE 03/15/20 .COMPLEX #270 tab venlafaxine 225 mg tablet,extended 225 mg PO DAILY #30 tab 03/24/20 release 24 hr methocarbamol 750 mg tablet 750 mg PO Q8H #30 tab 04/07/20 chlorthalidone 25 mg tablet 25 mg PO DAILY #30 tab 04/11/20 lidocaine 1 patch TOP DAILY PRN #15 each 04/15/20 hydrocodone-acetaminophen [Niles] 1 tab PO Q8H PRN #7 tab 05/06/20 potassium chloride 20 meq PO DAILY #3 tab 05/06/20 Allergies Allergy/AdvReac Type Severity Reaction Status Date / Time naproxen [NAPROXEN] Allergy Severe THROAT Verified 05/07/20 15:54 SWELLING gabapentin [GABAPENTIN] Allergy Mild MAKES Verified 05/07/20 15:54 RESTLESS LEGS WORSE tomato [TOMATO] Allergy Mild BLISTERS Verified 05/07/20 15:54 ON LIPS NSAIDS (Non-Steroidal Allergy Unknown Verified 05/07/20 15:54 Anti-Inflamma [NSAIDS (NON-STEROIDAL ANTI-INFLAMMA] tramadol [From ULTRAM] Allergy Unknown vomiting Verified 05/07/20 15:54 baclofen Allergy Verified 05/07/20 15:54 Review of Systems <KERRY Burciaga - Last Filed: 05/06/20 18:29> Review of Systems Narrative: General: Denies fever, chills, fatigue, malaise, sweats. HEENT: Denies sinus pain, ear pain, sore throat, difficulty swallowing, dizziness. Respiratory: Denies dyspnea, cough, wheezing, hemoptysis, sputum. Cardiovascular: Denies chest pain, palpitations, orthopnea, edema. Gastrointestinal: See HPI : Denies dysuria, frequency, incontinence, hematuria, urinary retention. Musculoskeletal: Denies weakness, joint pain or bony pain. Skin: Denies rash, skin lesions, or other. Neurologic: Denies weakness, headache, numbness, change in speech, confusion, seizures, incoordination. Psychiatric: No concerning psychosocial issues. 12-point review of systems is negative except for those stated above. Patient History <KERRY Burciaga - Last Filed: 05/06/20 18:29> Medical History (Updated 05/07/20 @ 18:29 by Moe Delgado DO) Abnormal Pap smear of cervix Anxiety Asthma Bone spur of right foot Chronic back pain Depression Foot pain GERD (gastroesophageal reflux disease) Lumbar spine pain Piriformis muscle pain Right Achilles tendinitis RLS (restless legs syndrome) Sciatic leg pain Shoulder pain Sore muscles Superior glenoid labrum lesion of left shoulder Traumatic tear of supraspinatus tendon of left shoulder Surgical History Anesthesia History of carpal tunnel repair (~1996) History of shoulder surgery (~2010) Status post delivery (~1993) Status post delivery (~1995) Status post trigger finger release (~2015) Status post tubal ligation (~1995) Family History Grandfather Cancer Mother Cervical cancer Early menopause Goiter Hypothyroid Diabetes mellitus Hypertension Father Dementia Social History household members: family Smoking Status: Former smoker substance use type: marijuana Smoking Status: Former smoker alcohol intake frequency: 0-2 drinks per day Substance Use Type: marijuana Exam <KERRY Burciaga - Last Filed: 05/06/20 18:29> Narrative Exam Narrative: GEN: Alert, oriented x 3, well appearing and nourished, and in no acute distress. Head: Normal cephalic, atraumatic. No scalp or temporal tenderness, palpable mass or rash. EYES: Pupils are equal, round, and reactive to light and accommodation. Extraocular muscles are intact bilaterally. There is no subconjunctival hemorrhage, exudate and sclera non-icteric. ENT: Hearing grossly intact. Airway patent. Neck: Trachea in midline. No JVD, non-tender without lymphadenopathy. No masses or thyroid megaly. Supple, non-tender and no meningeal signs. CARDIAC: Normal regular rate and rhythm without murmurs, gallops, or rubs. No chest wall tenderness. No peripheral edema, cyanosis or pallor. Capillary refill is less than 2 seconds. RESPIRATORY: Lungs are clear to auscultate bilaterally. No cough, wheezes, rales, or rhonchi. No stridor, respiratory distress, increase work of breathing , or accessary muscle used. ABD: Abdomen soft and non-distended. No guarding or rebound tenderness to palpate. Bowel sounds are normal in all 4 quadrants. There is a palpable masses in right lower quadrant. No organomegaly. EXT: Full painless ROM of all extremities with no loss of sensation, strength, effusion or edema. SKIN: Warm, dry, normal color for patient. No erythema, lesions or rash over visible areas. BACK: Nontender without deformity or crepitance. No flank tenderness. NEUROLOGICAL: Alert and oriented to place, time and person. Sensation and motor function intact bilaterally. No facial droops, dysphasia. PSYCHIATRIC: Good judgement and reason, without hallucinations, abnormal affect or abnormal behaviors during the examination. Patient is not suicidal. Initial Vital Signs Initial Vital Signs: Vital Signs Temperature 97.7 F 05/06/20 14:03 Pulse Rate 109 H 05/06/20 14:03 Respiratory Rate 16 05/06/20 14:03 Blood Pressure 163/74 H 05/06/20 14:03 Pulse Oximetry 96 05/06/20 14:03 <Anjelica Drummond DO - Last Filed: 05/08/20 18:40> Initial Vital Signs Initial Vital Signs: Vital Signs Temperature 97.7 F 05/06/20 14:03 Pulse Rate 109 H 05/06/20 14:03 Respiratory Rate 16 05/06/20 14:03 Blood Pressure 163/74 H 05/06/20 14:03 Pulse Oximetry 96 05/06/20 14:03 Scores <KERRY Burciaga - Last Filed: 05/06/20 18:29> GCS [place] coma scale eye opening: Spontaneous [place] coma scale verbal response: Orientated [place] coma scale motor response: Obey commands [place] coma scale total score: 15 Course <KERRY Burciaga - Last Filed: 05/06/20 18:29> Orders Ordered: Discontinued Medications Hydromorphone HCl (Hydromorphone 0.5 Mg Inj) 0.5 mg IV NOW ONE Stop: 05/06/20 15:02 Last Admin: 05/06/20 15:26 Dose: 0.5 mg Documented by: CVANCE Potassium Chloride 40 meq/ (Sodium Chloride) 520 mls @ 130 mls/hr IV NOW ONE Stop: 05/06/20 19:06 Last Infusion: 05/06/20 18:12 Dose: 130 mls/hr Documented by: CVANCE Cosigned by: MMINOR Admin: 05/06/20 15:29 Dose: 130 mls/hr Documented by: CVANCE Cosigned by: RMARTIN Potassium Chloride (Potassium Chloride 20 Meq/15 Ml Udc) 20 meq PO NOW ONE Stop: 05/06/20 17:40 Last Admin: 05/06/20 18:16 Dose: 20 meq Documented by: CVANCE Potassium Chloride (Potassium Chloride 20 Meq/15 Ml Udc) 20 meq PO NOW ONE Stop: 05/06/20 17:48 Last Admin: 05/06/20 18:17 Dose: 20 meq Documented by: CVANCE Reevaluation(s) Reevaluation #1: Patient has ice pack on right groin and in Trendelenburg position. Waiting for medication before attempting reduction. Time: 15:05 Reevaluation #2: Patient reports pain improved after the Dilaudid. CT result on abdomen pelvis indicates prominent right side ovary. Normal appendix with no dilated loops of bowel. Findings discussed with patient informed additional ultrasound for pelvic ordered to evaluate on right ovary. Time: 16:02 Reevaluation #3: Patient reports pain is tolerable and currently waiting for ultrasound test results. Time: 17:13 Consultations Consultation #1: Dr. Fountain consulted on the phone with US test result on hypoe cjpgemoc structure seen as sent to uterus within the right adnexal region that measures at least 5.6 cm with limited study due to body habitus. Dr. Fountain agreed and recommended patient to follow-up at the office with her. Time: 17:37 Vital Signs Vital signs: Vital Signs - 8 hr 05/06/20 14:03 05/06/20 15:56 05/06/20 17:38 Temperature 97.7 F 98.0 F Pulse Rate 109 H 87 96 H Respiratory Rate 16 27 H 14 Blood Pressure 163/74 H 121/64 132/56 L Pulse Oximetry 96 95 96 <Anjelica Drummond, DO - Last Filed: 05/08/20 18:40> Orders Ordered: Discontinued Medications Hydromorphone HCl (Hydromorphone 0.5 Mg Inj) 0.5 mg IV NOW ONE Stop: 05/06/20 15:02 Last Admin: 05/06/20 15:26 Dose: 0.5 mg Documented by: CVANCE Potassium Chloride 40 meq/ (Sodium Chloride) 520 mls @ 130 mls/hr IV NOW ONE Stop: 05/06/20 19:06 Last Infusion: 05/06/20 18:12 Dose: 130 mls/hr Documented by: CVANCE Cosigned by: MMINOR Admin: 05/06/20 15:29 Dose: 130 mls/hr Documented by: CVANCE Cosigned by: RMARTIN Potassium Chloride (Potassium Chloride 20 Meq/15 Ml Udc) 20 meq PO NOW ONE Stop: 05/06/20 17:40 Last Admin: 05/06/20 18:16 Dose: 20 meq Documented by: CVANCE Potassium Chloride (Potassium Chloride 20 Meq/15 Ml Udc) 20 meq PO NOW ONE Stop: 05/06/20 17:48 Last Admin: 05/06/20 18:17 Dose: 20 meq Documented by: CVANCE Vital Signs Vital signs: Vital Signs - 8 hr 05/06/20 14:03 05/06/20 15:56 05/06/20 17:38 Temperature 97.7 F 98.0 F Pulse Rate 109 H 87 96 H Respiratory Rate 16 27 H 14 Blood Pressure 163/74 H 121/64 132/56 L Pulse Oximetry 96 95 96 MDM - Abdominal Pain <KERRY Burciaga - Last Filed: 05/06/20 18:29> Differential Diagnosis Differential diagnosis: Likely abdominal pain, acute appendicitis, diverticulitis, small bowel obstruction and other (Right inguinal hernia, right lymph node adenopathy, ovarian cyst) Medical Records Attestation: I reviewed the patient's medical records. Lab Data Attestation: I reviewed the patient's lab results. Result diagrams: 05/06/20 14:41 05/06/20 14:41 Labs: Lab Results 05/06/20 05/06/20 Range/Units 14:41 14:41 WBC 7.5 (4.5-11.0) X10^3/uL RBC 3.96 L (4.0-5.2) X10^6/uL Hgb 12.5 (12.0-16.0) g/dL Hct 37.6 (36-46) % MCV 94.9 (80-100) fL MCH 31.6 (26-34) PG MCHC 33.2 (30-36) % RDW 15.1 H (11.6-14.8) % Plt Count 351 (150-400) X10^3/uL Neut % (Auto) 59.1 (50-75) % Lymph % (Auto) 30.3 (25-40) % Thomas % (Auto) 8.7 (3-14) % Eos % (Auto) 1.3 L (2-4) % Baso % (Auto) 0.6 (0-2) % Neut # (Auto) 4500 (1684-5826) /uL Lymph # (Auto) 2300 (8829-3630) /uL Thomas # (Auto) 700 (0-900) /uL Eos # (Auto) 100 (0-450) /uL Baso # (Auto) 0 (0-100) /uL Sodium 139 (137-145) mmol/L Potassium 3.0 L (3.4-5.1) mmol/L Chloride 101 (98-107) mmol/L Carbon Dioxide 35 H (22-32) mmol/L BUN 18 H (7-17) mg/dL Creatinine 0.66 (0.52-1.04) mg/dL Estimated GFR > 60.0 (>60) mL/min BUN/Creatinine Ratio 27.3 H (6-22) Glucose 98 (70-100) mg/dL Calcium 8.8 (8.4-10.2) mg/dL Total Bilirubin 0.3 (0.2-1.3) mg/dL AST 34 (14-36) IU/L ALT 26 (<35) IU/L Alkaline Phosphatase 73 (38-126) U/L Total Protein 7.0 (6.3-8.2) g/dL Albumin 3.8 (3.5-5.0) g/dL Globulin 3.2 (1.7-4.1) g/dL Albumin/Globulin Ratio 1.2 (1.0-2.8) Lipase 71 (23-300) U/L Point of care testing: Point of Care Testing Test Results Negative Urine Dip Bedside Urine Glucose Negative Bedside Urine Bilirubin - Negative Bedside Urine Ketone - Negative Urine Specific Brave 1.025 Bedside Urine Occult Blood - Negative Bedside Urine pH 6.0 Bedside Urine Protein - Negative Bedside Urine Urobilinogen - Negative Bedside Urine Nitrite - Negative Bedside Urine Leukocytes - Negative Esterase Imaging Data US - CONSTRUCTION QUALITY CONTROL MANAGER: Radiologist's Impression: [address] [id number] ReportSigned Patient: Karime Joe EMR#: [id number]: 1970Acct:[id number]/Sex: 49 / FDate of Service: 05/06/20Loc: EDAccession Number: [id number] Procedure: US pelvic complete Ordering Provider: Dmitri Bernal PROCEDURE: US PELVIC COMPLETE INDICATIONS: RIGHT LOWER QUADRANT PAIN. PROMINENT RIGHT OVERY PER CATSCAN TECHNIQUE: Real-time scanning was performed of the pelvic organs, with image documentation. Additional endovaginal scanning was necessary due to incomplete visualization of the adnexal and endometrial structures by transabdominal scanning. COMPARISON: [facility], US, PELVIC COMPLETE, 03/21/2016, 11:32. [facility], CT, CT ABDOMEN PELVIS W CON, 05/06/2020, 15:16. FINDINGS: Transabdominal scanning: Limited scanning through the kidneys shows no hydronephrosis. No pathologic free abdominal or pelvic fluid. Endovaginal scanning: Uterus: Uterus is normal in size at 6.8 x 2.3 x 3.1 cm. The endometrium measures 7 mm in combined thickness. Ovaries: Neither ovary is seen. There is a hypoechoic structure seen adjacent to the uterus within the right adnexal region that measures at least 5.6 cm on this study. This study is limited by body habitus. IMPRESSION: Limited study demonstrating an apparent hypoechoic structure seen within the right adnexal region. However, this may be related to the right ovary itself. Please consider pelvic ultrasound follow-up in 6 weeks for further evaluation. Dictated by: Efrain Nath M.D. on 05/06/2020 at 16:17 Approved by: Efrain Nath M.D. on 05/06/2020 at 16:19 CT scan - abdomen/pelvis: Radiologist's Impression: [address] [id number] Scan ReportSigned Patient: Karime Joe EMR#: [id number]: 1970Acct:[id number]/Sex: 49 / FDate of Service: 05/06/20Loc: EDAccession Number: [id number] Procedure: CT abdomen pelvis w con Ordering Provider: Dmitri Bernal PROCEDURE: CT ABDOMEN PELVIS W CON INDICATIONS: RLQ pain, hernia? appy? TECHNIQUE: After the administration of intravenous contrast, 5 mm thick sections acquired from the diaphragm to the symphysis. 5 mm coronal and sagittal reformats were acquired. For radiation dose reduction, the following was used: automated exposure control, adjustment of mA and/or kV according to patient size. COMPARISON: [facility], CT, ABDOMEN/PELVIS WITH CONTRAST, 08/31/2014, 11:47. FINDINGS: Image quality: Excellent. ABDOMEN: Lung bases: Lung bases are clear. Heart size is normal. Solid organs: Liver is normal in size and enhancement. Mild, diffuse fatty infiltration of the liver. Gallbladder is within normal limits. Biliary system is non dilated. Pancreas enhances normally. Spleen is normal in size and enhancement. No adrenal nodules. Kidneys demonstrate normal size and enhancement, without hydr onephrosis. Peritoneum and bowel: Bowel loops demonstrate normal wall thickness and caliber. No free fluid or air. The appendix is normal. Nodes and vessels: No retroperitoneal or mesenteric adenopathy by size criteria. Aorta and inferior vena cava are normal in size. Miscellaneous: No ventral hernias. PELVIS: Genitourinary: Bladder wall thickness is normal. Right ovary is slightly prominent relative to the left. Miscellaneous: No inguinal hernias or adenopathy. Bones: No suspicious bony lesions. Chronic right 12th and 11th rib fractures. Chronic left 12th, 11th 10th and 9th rib fractures. No vertebral body compression fractures. Spine degenerative disc disease and facet arthropathy. IMPRESSION: 1. No acute disease process. 2. Appendix is normal. 3. No free fluid or free air. 4. No dilated loops of bowel. 5. Hepatic steatosis. 6. Prominent right ovary left relative to the left. There is clinical concern for ovarian pathology including ovarian torsion, pelvic ultrasound should be performed for further evaluation. 7. Chronic appearing bilateral rib fractures. Dictated by: Tari Gardner MD, PhD on 05/06/2020 at 15:37 Approved by: Tari Gardner MD, PhD on 05/06/2020 at 15:44 [facility] Narrative Medical decision making narrative: This is a 49 year female who presents to ED with right lower quadrant pain and tender to palpate and appreciated mass on affected quadrant without other associated symptoms such as fever, chills, nausea or vomiting last 2-3 days. Patient is afebrile and slightly tachycardic upon arrival with normal respiration rate. Stable H&H of 12.5 and 37.6. No leukocytosis of white count 7.5. Slight hypokalemic with potassium level of 3.0. Normal sodium of 139. Slightly elevated CO2 of 35 which is patient's baseline from past medical record. Normal kidney function test of creatinine of 0.66 but slightly elevated BUN of 18 with BUN/creatinine ratio of 27.3. Normal liver function test and lipase. Patient was hydrated with small amount of normal saline and K rider to replace potassium. Patient denies vomiting or diarrhea but takes diuretic, chlorthalidone. Patient was medicated with Dilaudid for pain since patient is not able to take NSAIDS due to significant allergy reaction. Concerns for inguinal hernia and other surgical abdominal etiology, CT- ABD/pelvis ordered obtained. It indicates prominent right ovary. Incidental findings of hepatic steatosis and chronic appearing bilateral rib fractures. No appendicitis, adenopathy, no dilated loops of bowel, free fluid or air. US pelvis obtained for further findings and it shows a hypoechoic structure seen as sent to the uterus with within the right adnexal region measuring at least 5.6 cm with limited exam due to body habitus. Uterus in normal size and 7 mm in combined thickness. There is no hydronephrosis with normal kidney size. Dr. Fountain consulted on the phone and she recommended to follow-up at the clinic patiently with her. Patient received about 20 mEq of IV potassium chloride and was able to tolerate 40 mEq of potassium chloride without difficulty. Patient discharged to home with few tabs of Niles for acute pain management and 3 tabs of potassium chloride 20 mEq pills to take daily for 3 days and advised follow-up with Dr. Villalta on Saturday for redraw. Return precautions were discussed with patient and she verbalized understanding in agreement with the treatment plan. <Anjelica Drummond, DO - Last Filed: 05/08/20 18:40> Lab Data Labs: Lab Results 05/06/20 05/06/20 Range/Units 14:41 14:41 WBC 7.5 (4.5-11.0) X10^3/uL RBC 3.96 L (4.0-5.2) X10^6/uL Hgb 12.5 (12.0-16.0) g/dL Hct 37.6 (36-46) % MCV 94.9 (80-100) fL MCH 31.6 (26-34) PG MCHC 33.2 (30-36) % RDW 15.1 H (11.6-14.8) % Plt Count 351 (150-400) X10^3/uL Neut % (Auto) 59.1 (50-75) % Lymph % (Auto) 30.3 (25-40) % Thomas % (Auto) 8.7 (3-14) % Eos % (Auto) 1.3 L (2-4) % Baso % (Auto) 0.6 (0-2) % Neut # (Auto) 4500 (4583-0767) /uL Lymph # (Auto) 2300 (6405-8364) /uL Thomas # (Auto) 700 (0-900) /uL Eos # (Auto) 100 (0-450) /uL Baso # (Auto) 0 (0-100) /uL Sodium 139 (137-145) mmol/L Potassium 3.0 L (3.4-5.1) mmol/L Chloride 101 (98-107) mmol/L Carbon Dioxide 35 H (22-32) mmol/L BUN 18 H (7-17) mg/dL Creatinine 0.66 (0.52-1.04) mg/dL Estimated GFR > 60.0 (>60) mL/min BUN/Creatinine Ratio 27.3 H (6-22) Glucose 98 (70-100) mg/dL Calcium 8.8 (8.4-10.2) mg/dL Total Bilirubin 0.3 (0.2-1.3) mg/dL AST 34 (14-36) IU/L ALT 26 (<35) IU/L Alkaline Phosphatase 73 (38-126) U/L Total Protein 7.0 (6.3-8.2) g/dL Albumin 3.8 (3.5-5.0) g/dL Globulin 3.2 (1.7-4.1) g/dL Albumin/Globulin Ratio 1.2 (1.0-2.8) Lipase 71 (23-300) U/L Point of care testing: Point of Care Testing Test Results Negative Urine Dip Bedside Urine Glucose Negative Bedside Urine Bilirubin - Negative Bedside Urine Ketone - Negative Urine Specific Brave 1.025 Bedside Urine Occult Blood - Negative Bedside Urine pH 6.0 Bedside Urine Protein - Negative Bedside Urine Urobilinogen - Negative Bedside Urine Nitrite - Negative Bedside Urine Leukocytes - Negative Esterase Discharge Plan Departure Patient Disposition: Home Clinical Impression: Adnexal mass, Hypokalemia Abdominal pain Qualifiers: Abdominal location: right lower quadrant Qualified Code(s): R10.31 - Right lower quadrant pain Instructions: DI for Ovarian Cyst, DI for Abdominal Pain-Adult, DI for Hypokalemia Activity Restrictions/Additional Instructions: You have been diagnosed with [right lower quadrant pain and hypokalemia. CT test no indications for appendicitis or hernia. Ultrasound test of pelvic obtained and indicates a hypoechogenic structure near the uterus within the right adnexal region. ]. What to do: *Take your medications as directed. Please take [id number] Tylenol as needed for mild to moderate pain and take Niles for severe pain. Niles is narcotic pain medications he can cause drowsiness. Please take precaution not driving, drinking alcohol, operating heavy equipments. Also it can cause constipation so please take precautions such as increasing fluid, fiber in her diet and [id number] MiraLax, stool softener, fiber as needed. Please take potassium pill once a day for next 3 days. *Follow up with your primary care provider in 2-3 days, call for an appointment. Let them know you were seen in the ED and that we asked you to be seen in follow up on hypokalemia. I spoke with Dr. Fountain over the phone and please follow-up at the office on today's ultrasound findings. *Return to ED if you have any new, worsening, or concerning symptoms, such as [chest pain, breathing difficulty, unable to tolerate fluids, generalize weakness, fever, near syncope or any acute concerns]. Prescriptions: New hydrocodone-acetaminophen [Niles] 5-325 mg tablet 1 tab PO Q8H PRN (Reason: pain) Qty: 7 RF: 0 potassium chloride 20 mEq tablet extended release 20 meq PO DAILY Qty: 3 RF: 0 No Action multivitamin Tablet 1 tab PO DAILY Qty: 0 RF: 0 [marijuana] 1 dose miscellaneous PRN PRN (Reason: as directed) Qty: 0 RF: 0 albuterol sulfate [Ventolin HFA] 90 mcg/actuation HFA aerosol inhaler 2 puff INHALATION Q4HP PRN (Reason: bronchospasm) Qty: 1 RF: 2 clonidine HCl 0.2 mg tablet 0.2 mg PO DAILY Qty: 90 RF: 3 meloxicam 15 mg tablet 15 mg PO DAILY Qty: 90 RF: 0 pramipexole 0.5 mg tablet See Rx Instructions .ROUTE .COMPLEX Qty: 270 RF: 3 venlafaxine 225 mg tablet extended release 24hr 225 mg PO DAILY Qty: 30 RF: 2 methocarbamol 750 mg tablet 750 mg PO Q8H Qty: 30 RF: 3 chlorthalidone 25 mg tablet 25 mg PO DAILY Qty: 30 RF: 3 albuterol sulfate 2.5 mg /3 mL (0.083 %) solution for nebulization 2.5 mg INHALATION Q4-6H PRN (Reason: shortness of breath or wheezing) Qty: 90 RF: 5 cholecalciferol (vitamin D3) 2,000 unit capsule 2,000 unit PO DAILY RF: 0 hydrocodone-acetaminophen 5-325 mg tablet 1 tab PO Q4H PRN (Reason: lower back, leg pain) Qty: 15 RF: 0 omeprazole 20 mg capsule,delayed release(DR/EC) 20 mg PO DAILY RF: 0 lidocaine 5 % adhesive patch,medicated 1 patch TOP DAILY PRN (Reason: pain) Qty: 15 RF: 0 Referrals: Virginia Fountain MD [Physician] - Margi Mejia DO [Primary Care Provider] - Stand Alone Forms: Work Release Note <Anjelica Drummond DO - Last Filed: 05/08/20 18:40> Cosign ED Attending Jeimyature Attestation: I was immediately available in the department for consultation. Documentation has been reviewed. I agree with assessment and plan.
[2020-05-06 14:51] LABS: Add Manual Diff / Slide Review NO; Basophils Absolute Auto 0 /uL (0-100); Basophils Percent Auto 0.6 % (0-2); Eosinophils Absolute Auto 100 /uL (0-450); Eosinophils Percent Auto 1.3 % (2-4); Hematocrit 37.6 % (36-46); Hemoglobin 12.5 g/dL (12.0-16.0); Lymphocytes Absolute Auto 2300 /uL (1100-4500); Lymphocytes Percent Auto 30.3 % (25-40); Mean Corpuscular HGB Conc 33.2 % (30-36); Mean Corpuscular Hemoglobin 31.6 PG (26-34); Mean Corpuscular Volume 94.9 fL (80-100); Monocytes Absolute Auto 700 /uL (0-900); Monocytes Percent Auto 8.7 % (3-14); Neutrophils Absolute Auto 4500 /uL (1500-7000); Neutrophils Percent Auto 59.1 % (50-75); Platelet Count 351 X10^3/uL (150-400); Red Blood Cell Count 3.96 X10^6/uL (4.0-5.2); Red Cell Distribution Width 15.1 % (11.6-14.8); White Blood Cell Count 7.5 X10^3/uL (4.5-11.0)
[2020-05-06 15:03] LABS: Alanine Aminotransferase 26 IU/L (<35); Albumin 3.8 g/dL (3.5-5.0); Albumin Globulin Ratio 1.2 (1.0-2.8); Alkaline Phosphatase 73 U/L (38-126); Aspartate Aminotransferase 34 IU/L (14-36); BUN Creatinine Ratio 27.3 (6-22); Bilirubin Total 0.3 mg/dL (0.2-1.3); Blood Urea Nitrogen 18 mg/dL (7-17); Calcium 8.8 mg/dL (8.4-10.2); Carbon Dioxide 35 mmol/L (22-32); Chloride 101 mmol/L (98-107); Estimated Glomerular Filt Rate > 60.0 mL/min (>60); Globulin 3.2 g/dL (1.7-4.1); Glucose 98 mg/dL (70-100); HEMOLYSIS 16 (0-50); Lipase 71 U/L (23-300); Sodium 139 mmol/L (137-145)
--- NOTE | 2020-05-06 15:08 | DI.CT.S_ITS ---
PROCEDURE: CT ABDOMEN PELVIS W CON INDICATIONS: RLQ pain, hernia? appy? TECHNIQUE: After the administration of intravenous contrast, 5 mm thick sections acquired from the diaphragm to the symphysis. 5 mm coronal and sagittal reformats were acquired. For radiation dose reduction, the following was used: automated exposure control, adjustment of mA and/or kV according to patient size. COMPARISON: [facility], CT, ABDOMEN/PELVIS WITH CONTRAST, 08/31/2014, 11:47. FINDINGS: Image quality: Excellent. ABDOMEN: Lung bases: Lung bases are clear. Heart size is normal. Solid organs: Liver is normal in size and enhancement. Mild, diffuse fatty infiltration of the liver. Gallbladder is within normal limits. Biliary system is non dilated. Pancreas enhances normally. Spleen is normal in size and enhancement. No adrenal nodules. Kidneys demonstrate normal size and enhancement, without hydronephrosis. Peritoneum and bowel: Bowel loops demonstrate normal wall thickness and caliber. No free fluid or air. The appendix is normal. Nodes and vessels: No retroperitoneal or mesenteric adenopathy by size criteria. Aorta and inferior vena cava are normal in size. Miscellaneous: No ventral hernias. PELVIS: Genitourinary: Bladder wall thickness is normal. Right ovary is slightly prominent relative to the left. Miscellaneous: No inguinal hernias or adenopathy. Bones: No suspicious bony lesions. Chronic right 12th and 11th rib fractures. Chronic left 12th, 11th 10th and 9th rib fractures. No vertebral body compression fractures. Spine degenerative disc disease and facet arthropathy. IMPRESSION: 1. No acute disease process. 2. Appendix is normal. 3. No free fluid or free air. 4. No dilated loops of bowel. 5. Hepatic steatosis. 6. Prominent right ovary left relative to the left. There is clinical concern for ovarian pathology including ovarian torsion, pelvic ultrasound should be performed for further evaluation. 7. Chronic appearing bilateral rib fractures. Dictated by: Tari Gardner MD, PhD on 05/06/2020 at 15:37 Approved by: Tari Gardner MD, PhD on 05/06/2020 at 15:44
[2020-05-06] MEDS: HYDROMORPHONE 0.5 MG INJ IV (15:26)
[2020-05-06] MEDS: POTASSIUM CHLORIDE 40 MEQ in SODIUM CHLORIDE 0.9% 500 ML 130 ML IV (15:29)
[2020-05-06 15:56] VITALS: BP 121/64; PULSE 87; RESP 27; O2SAT 95
--- NOTE | 2020-05-06 15:58 | DI.US.S_ITS ---
PROCEDURE: US PELVIC COMPLETE INDICATIONS: RIGHT LOWER QUADRANT PAIN. PROMINENT RIGHT OVERY PER CATSCAN TECHNIQUE: Real-time scanning was performed of the pelvic organs, with image documentation. Additional endovaginal scanning was necessary due to incomplete visualization of the adnexal and endometrial structures by transabdominal scanning. COMPARISON: [facility], US, PELVIC COMPLETE, 03/21/2016, 11:32. [facility], CT, CT ABDOMEN PELVIS W CON, 05/06/2020, 15:16. FINDINGS: Transabdominal scanning: Limited scanning through the kidneys shows no hydronephrosis. No pathologic free abdominal or pelvic fluid. Endovaginal scanning: Uterus: Uterus is normal in size at 6.8 x 2.3 x 3.1 cm. The endometrium measures 7 mm in combined thickness. Ovaries: Neither ovary is seen. There is a hypoechoic structure seen adjacent to the uterus within the right adnexal region that measures at least 5.6 cm on this study. This study is limited by body habitus. IMPRESSION: Limited study demonstrating an apparent hypoechoic structure seen within the right adnexal region. However, this may be related to the right ovary itself. Please consider pelvic ultrasound follow-up in 6 weeks for further evaluation. Dictated by: Efrain Nath M.D. on 05/06/2020 at 16:17 Approved by: Efrain Nath M.D. on 05/06/2020 at 16:19
[2020-05-06 17:38] VITALS: BP 132/56; PULSE 96; RESP 14; TEMP 36.7; O2SAT 96
[2020-05-06] MEDS: POTASSIUM CHLORIDE 20 MEQ/15 ML UDC PO ×2 (18:16→18:17)
[2020-05-06 18:41] VITALS: BP 132/56; PULSE 90; RESP 15; TEMP 36.7; O2SAT 94
== END 2020-05-06 18:42 | disposition home or self-care (01) ==
PROVIDERS: Emergency Provider Nurse Practitioner Family; PCP Family Medicine
DX: N94.89 Other specified conditions associated with female genital organs and menstrual cycle (principal); E87.6 Hypokalemia; R10.31 Right lower quadrant pain; I10 Essential (primary) hypertension; R00.0 Tachycardia, unspecified
CPT/HCPCS: 74177; 76830; 76856; 80053; 81003; 81025; 83690; 85025; 96365; 96366; 96375; 99283; 99284; J1170; J3480; Q9967

== ENCOUNTER 2020-05-07 15:41 | Emergency (ER) | payer MEDICARE, MEDICAID, SELFPAY ==
[2020-05-07] VITALS (13 sets, daily range): BP systolic 104–136; BP diastolic 58–70; PULSE 80–90; RESP 12–21; TEMP 36.7; O2SAT 93–99
--- NOTE | 2020-05-07 15:50 | ED_ITS ---
HPI - General Adult General Chief complaint: Arrhythmia/Palpitations Stated complaint: heart problems Time Seen by Provider: 05/07/20 15:44 Source: patient Mode of arrival: Ambulatory Limitations: no limitations History of Present Illness HPI narrative: Patient is a 49-year-old female. Was seen here in this departm ent approximately 24 hours ago for pain in her right groin. Was diagnosed with an ovarian cyst. Was discharged home. Return to the emergency department today because she states that just prior to arrival she started having increasing pain in her right groin. She states that she felt like it was working its way up her abdomen into her chest. She was smoking marijuana at the time. She then stated that she started having vaginal bleeding. She feels like her pain in her right groin is a little bit worsened yesterday. She does have a history of asthma. She did not use her inhaler. States that the pain in her chest is not worse with breathing or movement. Because of his pain in her chest she came into the emergency department. Related Data Home Medications Medication Instructions Recorded Confirmed multivitamin 1 tab PO DAILY #0 08/04/12 03/25/20 [marijuana] 1 dose MISCELLANEOUS PRN PRN #0 03/16/16 03/25/20 cholecalciferol (vitamin D3) 50 2,000 unit PO DAILY 02/12/19 03/25/20 mcg (2,000 unit) capsule omeprazole 20 mg PO DAILY 05/07/19 03/25/20 Previous Rx's Medication Instructions Recorded albuterol sulfate 2.5 mg INHALATION Q4-6H PRN #90 ml 06/15/19 albuterol sulfate 90 mcg/actuation 2 puff INHALATION Q4HP PRN #1 inh 07/14/19 aerosol inhaler clonidine HCl 0.2 mg tablet 0.2 mg PO DAILY #90 tab 11/11/19 hydrocodone 5 mg-acetaminophen 325 1 tab PO Q4H PRN #15 tab 12/14/19 mg tablet meloxicam 15 mg tablet 15 mg PO DAILY #90 tab 03/03/20 pramipexole 0.5 mg tablet See Rx Instructions .ROUTE 03/15/20 .COMPLEX #270 tab venlafaxine 225 mg tablet,extended 225 mg PO DAILY #30 tab 03/24/20 release 24 hr methocarbamol 750 mg tablet 750 mg PO Q8H #30 tab 04/07/20 chlorthalidone 25 mg tablet 25 mg PO DAILY #30 tab 04/11/20 lidocaine 1 patch TOP DAILY PRN #15 each 04/15/20 hydrocodone-acetaminophen [[place]] 1 tab PO Q8H PRN #7 tab 05/06/20 potassium chloride 20 meq PO DAILY #3 tab 05/06/20 Allergies Allergy/AdvReac Type Severity Reaction Status Date / Time naproxen [NAPROXEN] Allergy Severe THROAT Verified 05/07/20 15:54 SWELLING gabapentin [GABAPENTIN] Allergy Mild MAKES Verified 05/07/20 15:54 RESTLESS LEGS WORSE tomato [TOMATO] Allergy Mild BLISTERS Verified 05/07/20 15:54 ON LIPS NSAIDS (Non-Steroidal Allergy Unknown Verified 05/07/20 15:54 Anti-Inflamma [NSAIDS (NON-STEROIDAL ANTI-INFLAMMA] tramadol [From ULTRAM] Allergy Unknown vomiting Verified 05/07/20 15:54 baclofen Allergy Verified 05/07/20 15:54 Review of Systems Constitutional Constitutional: Denies fever(s) Cardiovascular Cardiovascular: Denies chest pain, Reports dyspnea and Denies dyspnea on exertion Respiratory Respiratory: Denies cough, Reports dyspnea and Denies dyspnea on exertion Gastrointestinal Gastrointestinal: Reports abdominal pain (Right lower quadrant/pelvic), Denies nausea and Denies vomiting Genitourinary Genitourinary: Denies dysuria Genitourinary: Denies dysuria and Reports vaginal discharge (Vaginal bleeding) Musculoskeletal Musculoskeletal: Denies arthralgias and Denies myalgias Integumentary/Breasts Skin/Breast: Denies rash Neurologic Neurologic: Denies behavioral changes Psychiatric Psychiatric: Denies behavioral changes Hematologic/Lymphatic Hematologic/Lymphatic: Denies easy bleeding and Denies easy bruising Allergic/Immunologic Allergic/Immunologic: Denies urticaria Patient History Medical History (Updated 05/07/20 @ 18:29 by Moe Delgado DO) Abnormal Pap smear of cervix Anxiety Asthma Bone spur of right foot Chronic back pain Depression Foot pain GERD (gastroesophageal reflux disease) Lumbar spine pain Piriformis muscle pain Right Achilles tendinitis RLS (restless legs syndrome) Sciatic leg pain Shoulder pain Sore muscles Superior glenoid labrum lesion of left shoulder Traumatic tear of supraspinatus tendon of left shoulder Surgical History Anesthesia History of carpal tunnel repair (~1996) History of shoulder surgery (~2010) Status post delivery (~1993) Status post delivery (~1995) Status post trigger finger release (~2015) Status post tubal ligation (~1995) Family History Grandfather Cancer Mother Cervical cancer Early menopause Goiter Hypothyroid Diabetes mellitus Hypertension Father Dementia Social History household members: family Smoking Status: Former smoker substance use type: marijuana Smoking Status: Former smoker alcohol intake frequency: 0-2 drinks per day Substance Use Type: marijuana Exam Initial Vital Signs Initial Vital Signs: Vital Signs Pulse Rate 87 05/07/20 15:50 Respiratory Rate 20 05/07/20 15:50 Blood Pressure 104/58 L 05/07/20 15:50 Pulse Oximetry 96 05/07/20 15:50 Const General: cooperative Limitations: mental status not altered HENMT Head: normal to inspection and normocephalic Resp Effort & Inspection: normal respiratory effort and not labored Auscultation: wheezes Cardio Rate: regular rate Rhythm: regular rhythm GI Inspection: non-distended Skin Lesions: no lesions Rashes: no rashes Neuro General: patient alert and patient awake Cognition: normal cognition Speech: speech normal Extrem General: normal to inspection and capillary refill normal Psych Appearance: grossly normal and well kempt Course Orders Ordered: ED Orders 05/07/20 15:51 XR chest 1V Stat EKG-12 Lead Stat 05/07/20 16:00 Complete Blood Count AUTO DIFF Stat Comprehensive Metabolic Panel Stat Lipase Stat Troponin & CK Cardiac Panel Stat 05/07/20 17:04 US pelvic complete Stat Discontinued Medications Hydrocodone Bitart/Acetaminophen (Hydrocodone/Acet 5/325 Tablet) 1 tab PO NOW ONE Stop: 05/07/20 16:37 Last Admin: 05/07/20 16:56 Dose: 1 tab Documented by: Albuterol (Albuterol Hfa 200 Puff/18 Gm Inh (Covid Pos/Vent Pts)) 2 puff INH NOW ONE Stop: 05/07/20 16:05 Last Admin: 05/07/20 16:10 Dose: 2 puff Documented by: IZABEL Ondansetron HCl (Ondansetron 4 Mg/2 Ml Inj) 4 mg IV NOW ONE Stop: 05/07/20 17:51 Last Admin: 05/07/20 17:56 Dose: 4 mg Documented by: Vital Signs Vital signs: Vital Signs - 8 hr 05/07/20 15:50 05/07/20 15:55 05/07/20 15:58 Temperature 98.0 F Pulse Rate 87 86 Respiratory Rate 20 21 Blood Pressure 104/58 L Pulse Oximetry 96 96 05/07/20 16:00 05/07/20 16:11 05/07/20 16:30 Temperature Pulse Rate 84 90 89 Respiratory Rate 17 16 20 Blood Pressure Pulse Oximetry 94 99 96 05/07/20 17:08 05/07/20 17:09 Temperature Pulse Rate 81 80 Respiratory Rate 12 Blood Pressure 114/64 Pulse Oximetry 97 96 Medical Decision Making Lab Data Lab results reviewed: Yes I reviewed the patient's lab results. Result diagrams: 05/07/20 16:00 05/07/20 16:00 Labs: Lab Results 05/07/20 05/07/20 Range/Units 16:00 16:00 WBC 7.5 (4.5-11.0) X10^3/uL RBC 3.95 L (4.0-5.2) X10^6/uL Hgb 12.6 (12.0-16.0) g/dL Hct 37.5 (36-46) % MCV 95.1 (80-100) fL MCH 32.0 (26-34) PG MCHC 33.6 (30-36) % RDW 15.1 H (11.6-14.8) % Plt Count 366 (150-400) X10^3/uL Neut % (Auto) 64.3 (50-75) % Lymph % (Auto) 24.9 L (25-40) % [place]eman % (Auto) 8.1 (3-14) % Eos % (Auto) 1.4 L (2-4) % Baso % (Auto) 1.3 (0-2) % Neut # (Auto) 4800 (6694-3491) /uL Lymph # (Auto) 1900 (5657-7790) /uL Hardeman # (Auto) 600 (0-900) /uL Eos # (Auto) 100 (0-450) /uL Baso # (Auto) 100 (0-100) /uL Sodium 141 (137-145) mmol/L Potassium 3.6 (3.4-5.1) mmol/L Chloride 104 (98-107) mmol/L Carbon Dioxide 34 H (22-32) mmol/L BUN 17 (7-17) mg/dL Creatinine 0.67 (0.52-1.04) mg/dL Estimated GFR > 60.0 (>60) mL/min BUN/Creatinine Ratio 25.4 H (6-22) Glucose 96 (70-100) mg/dL Calcium 9.0 (8.4-10.2) mg/dL Total Bilirubin 0.3 (0.2-1.3) mg/dL AST 29 (14-36) IU/L ALT 24 (<35) IU/L Alkaline Phosphatase 66 (38-126) U/L Total Creatine Kinase 122 (30-135) U/L CK-MB (CK-2) 2.04 (<2.37) ng/mL CK-MB (CK-2) Rel Index 1.7 (1.5-5.0) % Troponin I < 0.012 (0.01-0.034) ng/mL Total Protein 7.1 (6.3-8.2) g/dL Albumin 3.8 (3.5-5.0) g/dL Globulin 3.3 (1.7-4.1) g/dL Albumin/Globulin Ratio 1.2 (1.0-2.8) Lipase 127 D (23-300) U/L Imaging Data Chest x-ray: Radiologist's Impression: [address] [id number] ReportSigned Patient: Karime Joe EMR#: [id number]: 1970Acct:[id number]/Sex: 49 / FDate of Service: 05/07/20Loc: EDAccession Number: [id number] Procedure: XR chest 1V Ordering Provider: Moe Delgado D.O. PROCEDURE: XR CHEST 1V INDICATIONS: Chest pain TECHNIQUE: One view of the chest was acquired. COMPARISON: [facility], CR, CHEST 2 VIEW, 07/07/2016, 11:13. [facility] pital, CT, CT ABDOMEN PELVIS W CON, 05/06/2020, 15:16. FINDINGS: Surgical changes and devices: None. Lungs and pleura: On this semiupright portable chest examination, no large pneumothorax or large pleural effusions are seen. No focal infiltrates are seen. Mediastinum: Mediastinal contours appear normal. Heart size is normal. Bones and chest wall: No suspicious bony lesions. Remote rib fractures are seen. Overlying soft tissues appear unremarkable. IMPRESSION: Portable chest within normal limits. Dictated by: Efrain Nath M.D. on 05/07/2020 at 15:42 Approved by: Efrain Nath M.D. on 05/07/2020 at 15:43 US - DATA PROCESSING SUPERVISOR: Radiologist's Impression: [address] [id number] ReportSigned Patient: Karime Joe EMR#: [id number]: [id number]:[id number]/Sex: 49 / FDate of Service: 05/07/20Loc: EDAccession Number: [id number] Procedure: US pelvic complete Ordering Provider: Moe Delgado D.O. PROCEDURE: US PELVIC COMPLETE INDICATIONS: WORSENING RIGHT PELVIC PAIN TECHNIQUE: Real-time scanning was performed of the pelvic organs, with image documentation. Additional endovaginal scanning was necessary due to incomplete visualization of the adnexal and endometrial structures by transabdominal scanning. COMPARISON: None. FINDINGS: Normal size and appearance of the uterus. No uterine mass. Endometrium is normal thickness. Normal size and appearance of the right ovary. The left ovary is not id entified. No significant free fluid. IMPRESSION: Left ovary not identified. Otherwise normal exam. Dictated by: Manoj Solano M.D. on 05/07/2020 at 18:15 Approved by: Manoj Solano M.D. on 05/07/2020 at 18:16 ECG Data Attestation: I personally reviewed and interpreted this ECG as follows: Prior ECG tracings: not available for review Interpretation: Sinus rhythm Ventricular rate is 78 Normal axis Normal QRS Normal QTC No ST T wave changes MDM Narrative Medical decision making narrative: I suspect chest pain is related to wheezing after smoking marijuana. Low suspicion for ACS. Is having some significant right lower quadrant abdominal pains for repeat ultrasound was ordered. Ultra sound today Is unremarkable. They believe was seen yesterday was actually her right ovary. I do have low suspicion for appendicitis given her clinical presentation lack of fever and lack leukocytosis. She is going to call her spike machine operator provider on Saturday for follow-up. She was given return precautions. She expressed understanding and agreement Discharge Plan Departure Patient Disposition: Home Clinical Impression: Pelvic pain, Atypical chest pain Instructions: DI for Pelvic Pain Activity Restrictions/Additional Instructions: Continue all of your medications as directed. I recommend you contact your spike machine operator provider on Saturday morning for follow-up. Return to the emergency department for any new or worsening symptoms Prescriptions: No Action multivitamin Tablet 1 tab PO DAILY Qty: 0 RF: 0 [marijuana] 1 dose miscellaneous PRN PRN (Reason: as directed) Qty: 0 RF: 0 albuterol sulfate [Ventolin HFA] 90 mcg/actuation HFA aerosol inhaler 2 puff INHALATION Q4HP PRN (Reason: bronchospasm) Qty: 1 RF: 2 clonidine HCl 0.2 mg tablet 0.2 mg PO DAILY Qty: 90 RF: 3 meloxicam 15 mg tablet 15 mg PO DAILY Qty: 90 RF: 0 pramipexole 0.5 mg tablet See Rx Instructions .ROUTE .COMPLEX Qty: 270 RF: 3 venlafaxine 225 mg tablet extended release 24hr 225 mg PO DAILY Qty: 30 RF: 2 methocarbamol 750 mg tablet 750 mg PO Q8H Qty: 30 RF: 3 chlorthalidone 25 mg tablet 25 mg PO DAILY Qty: 30 RF: 3 albuterol sulfate 2.5 mg /3 mL (0.083 %) solution for nebulization 2.5 mg INHALATION Q4-6H PRN (Reason: shortness of breath or wheezing) Qty: 90 RF: 5 cholecalciferol (vitamin D3) 2,000 unit capsule 2,000 unit PO DAILY RF: 0 hydrocodone-acetaminophen 5-325 mg tablet 1 tab PO Q4H PRN (Reason: lower back, leg pain) Qty: 15 RF: 0 omeprazole 20 mg capsule,delayed release(DR/EC) 20 mg PO DAILY RF: 0 lidocaine 5 % adhesive patch,medicated 1 patch TOP DAILY PRN (Reason: pain) Qty: 15 RF: 0 hydrocodone-acetaminophen [[place]] 5-325 mg tablet 1 tab PO Q8H PRN (Reason: pain) Qty: 7 RF: 0 potassium chloride 20 mEq tablet extended release 20 meq PO DAILY Qty: 3 RF: 0 Referrals: Margi Mejia DO [Primary Care Provider] -
[2020-05-07] MEDS: ALBUTEROL HFA 200 PUFF/18 GM INH (COVID POS/VENT PTS) INH (16:10)
[2020-05-07 16:13] LABS: Add Manual Diff / Slide Review NO; Basophils Absolute Auto 100 /uL (0-100); Basophils Percent Auto 1.3 % (0-2); Eosinophils Absolute Auto 100 /uL (0-450); Eosinophils Percent Auto 1.4 % (2-4); Hematocrit 37.5 % (36-46); Hemoglobin 12.6 g/dL (12.0-16.0); Lymphocytes Absolute Auto 1900 /uL (1100-4500); Lymphocytes Percent Auto 24.9 % (25-40); Mean Corpuscular HGB Conc 33.6 % (30-36); Mean Corpuscular Volume 95.1 fL (80-100); Monocytes Absolute Auto 600 /uL (0-900); Monocytes Percent Auto 8.1 % (3-14); Neutrophils Absolute Auto 4800 /uL (1500-7000); Neutrophils Percent Auto 64.3 % (50-75); Platelet Count 366 X10^3/uL (150-400); Red Blood Cell Count 3.95 X10^6/uL (4.0-5.2); Red Cell Distribution Width 15.1 % (11.6-14.8); White Blood Cell Count 7.5 X10^3/uL (4.5-11.0)
[2020-05-07 16:23] LABS: Alanine Aminotransferase 24 IU/L (<35); Albumin 3.8 g/dL (3.5-5.0); Albumin Globulin Ratio 1.2 (1.0-2.8); Alkaline Phosphatase 66 U/L (38-126); Aspartate Aminotransferase 29 IU/L (14-36); BUN Creatinine Ratio 25.4 (6-22); Bilirubin Total 0.3 mg/dL (0.2-1.3); Blood Urea Nitrogen 17 mg/dL (7-17); Carbon Dioxide 34 mmol/L (22-32); Chloride 104 mmol/L (98-107); Creatine Kinase 122 U/L (30-135); Estimated Glomerular Filt Rate > 60.0 mL/min (>60); Globulin 3.3 g/dL (1.7-4.1); Glucose 96 mg/dL (70-100); HEMOLYSIS < 15 (0-50); Lipase 127 U/L (23-300); Potassium 3.6 mmol/L (3.4-5.1); Sodium 141 mmol/L (137-145); Total Protein 7.1 g/dL (6.3-8.2)
[2020-05-07 16:34] LABS: Troponin I < 0.012 ng/mL (0.01-0.034)
[2020-05-07 16:38] LABS: CKMB % Relative Index 1.7 % (1.5-5.0); Creatine Kinase MB 2.04 ng/mL (<2.37)
--- NOTE | 2020-05-07 16:38 | PC.NURSE ---
1600 Patient reports that today she was smoking marijuana when she began feeling palpitations and some shortness of breath. Patient can be heard audibly wheezing with some congestion. She reports the wet cough is normal for her due to smoking marijuana. She also reports she has asthma. I asked her if she used her inhaler today and she reports no I only use it as needed. I informed Dr. Delgado and RT, inhaler ordered.
--- NOTE | 2020-05-07 16:42 | PC.NURSE ---
Patient reports significant improvement in symptoms of shortness of breath/palpitations after inhaler. SHe also reports increasing/worsening pain to cyst. STates she took her vicodin x2 at 1230pm with no relief. Danny Treadwell informed and aware. patient is tearful. I repositioned her for comfort.
[2020-05-07] MEDS: HYDROCODONE/ACET 5/325 TABLET 1 TAB PO (16:56)
--- NOTE | 2020-05-07 17:04 | DI.US.S_ITS ---
PROCEDURE: US PELVIC COMPLETE INDICATIONS: WORSENING RIGHT PELVIC PAIN TECHNIQUE: Real-time scanning was performed of the pelvic organs, with image documentation. Additional endovaginal scanning was necessary due to incomplete visualization of the adnexal and endometrial structures by transabdominal scanning. COMPARISON: None. FINDINGS: Normal size and appearance of the uterus. No uterine mass. Endometrium is normal thickness. Normal size and appearance of the right ovary. The left ovary is not identified. No significant free fluid. IMPRESSION: Left ovary not identified. Otherwise normal exam. Dictated by: Manoj Solano M.D. on 05/07/2020 at 18:15 Approved by: Manoj Solano M.D. on 05/07/2020 at 18:16
--- NOTE | 2020-05-07 17:29 | PC.NURSE ---
Patient reports she needs to change her tampon because she is gushing blood, complains of severe cramping and states I don't normally have periods since my ablation.
[2020-05-07] MEDS: ONDANSETRON 4 MG/2 ML INJ IV (17:56)
--- NOTE | 2020-05-07 18:42 | PC.NURSE ---
Patient reports almost full relief inpain when she vomited just before the Ultrasound took place. Patient states she feels much better upon discharge.
== END 2020-05-07 18:44 | disposition home or self-care (01) ==
PROVIDERS: Emergency Provider Emergency Medicine; PCP Family Medicine
DX: R10.2 Pelvic and perineal pain (principal); R07.89 Other chest pain; N93.9 Abnormal uterine and vaginal bleeding, unspecified; R06.00 Dyspnea, unspecified
CPT/HCPCS: 36415; 71045; 76830; 76856; 80053; 82550; 82553; 83690; 84484; 85025; 93005; 94150; 94640; 96374; 99283; 99284; A9270; J2405

== ENCOUNTER → 2020-05-27 08:35 | Outpatient (CLI) | payer MEDICARE, MEDICAID, SELFPAY ==
--- NOTE | 2020-05-27 08:39 | DI.RAD.S_ITS ---
PROCEDURE: XR CHEST 2V INDICATIONS: Cough TECHNIQUE: 2 views of the chest were acquired. COMPARISON: [facility], CR, XR CHEST 1V, 05/07/2020, 15:58. FINDINGS: Surgical changes and devices: None. Lungs and pleura: Lungs are clear. No pleural effusions or pneumothorax. Mediastinum: Mediastinal contours are normal. Heart size is normal. Bones and chest wall: No suspicious bony abnormalities. Soft tissues appear unremarkable. IMPRESSION: No acute pulmonary process. Dictated by: Yany Castaneda M.D. on 05/27/2020 at 9:41 Approved by: Yany Castaneda M.D. on 05/27/2020 at 10:09
[2020-05-27 09:49] LABS: Add Manual Diff / Slide Review NO; Basophils Absolute Auto 0 /uL (0-100); Basophils Percent Auto 0.4 % (0-2); Eosinophils Absolute Auto 100 /uL (0-450); Eosinophils Percent Auto 0.6 % (2-4); Hematocrit 39.8 % (36-46); Hemoglobin 13.4 g/dL (12.0-16.0); Lymphocytes Absolute Auto 2100 /uL (1100-4500); Lymphocytes Percent Auto 22.5 % (25-40); Mean Corpuscular HGB Conc 33.8 % (30-36); Mean Corpuscular Volume 94.7 fL (80-100); Monocytes Absolute Auto 700 /uL (0-900); Monocytes Percent Auto 7.6 % (3-14); Neutrophils Absolute Auto 6300 /uL (1500-7000); Neutrophils Percent Auto 68.9 % (50-75); Platelet Count 362 X10^3/uL (150-400); White Blood Cell Count 9.2 X10^3/uL (4.5-11.0)
[2020-05-27 10:20] LABS: BUN Creatinine Ratio 22.7 (6-22); Blood Urea Nitrogen 15 mg/dL (7-17); Calcium 9.6 mg/dL (8.4-10.2); Carbon Dioxide 35 mmol/L (22-32); Chloride 99 mmol/L (98-107); Estimated Glomerular Filt Rate > 60.0 mL/min (>60); Glucose 104 mg/dL (70-100); HEMOLYSIS < 15 (0-50); Potassium 3.5 mmol/L (3.4-5.1); Sodium 139 mmol/L (137-145)
== END ==
PROVIDERS: PCP Family Medicine; Referring Provider Family Medicine; Visit Provider Family Medicine
DX: R05 Cough (principal); D64.9 Anemia, unspecified; E87.6 Hypokalemia
CPT/HCPCS: 36415; 71046; 80048; 85025

== ENCOUNTER 2020-07-25 15:19 | Emergency (ER) | payer MEDICARE, MEDICAID, SELFPAY ==
[2020-07-25] VITALS (9 sets, daily range): BP systolic 148–157; BP diastolic 70–122; PULSE 87–104; RESP 10–20; TEMP 37.6; O2SAT 91–99; BMI 49.4
[2020-07-25 16:01] LABS: Add Manual Diff / Slide Review NO; Basophils Absolute Auto 100 /uL (0-100); Basophils Percent Auto 0.6 % (0-2); Eosinophils Absolute Auto 0 /uL (0-450); Hematocrit 41.6 % (36-46); Hemoglobin 13.9 g/dL (12.0-16.0); Lymphocytes Absolute Auto 2500 /uL (1100-4500); Lymphocytes Percent Auto 15.4 % (25-40); Mean Corpuscular HGB Conc 33.3 % (30-36); Mean Corpuscular Hemoglobin 31.1 PG (26-34); Mean Corpuscular Volume 93.2 fL (80-100); Monocytes Absolute Auto 1200 /uL (0-900); Monocytes Percent Auto 7.3 % (3-14); Neutrophils Absolute Auto 12500 /uL (1500-7000); Neutrophils Percent Auto 76.7 % (50-75); Platelet Count 466 X10^3/uL (150-400); Red Blood Cell Count 4.46 X10^6/uL (4.0-5.2); Red Cell Distribution Width 15.2 % (11.6-14.8); White Blood Cell Count 16.3 X10^3/uL (4.5-11.0)
[2020-07-25] MEDS: ONDANSETRON 4 MG/2 ML INJ IV (16:04)
[2020-07-25] MEDS: SODIUM CHLORIDE 0.9% 1,000 ML 1000 ML IV (16:04)
[2020-07-25 16:06] LABS: INR 1.1 (0.9-1.3); Prothrombin Time 12.9 SECONDS (10.1-12.7)
[2020-07-25 16:09] LABS: PTT Partial Thromboplastin Tim 31 SECONDS (26.4-36.2)
--- NOTE | 2020-07-25 16:12 | ED_ITS ---
HPI - General Adult General Chief complaint: Abdominal Pain Stated complaint: doesnt feel good Time Seen by Provider: 07/25/20 15:56 Source: patient and family Mode of arrival: Ambulatory Limitations: no limitations History of Present Illness HPI narrative: Patient is a 50-year-old female who is here for evaluation of lower abdominal pain, fatigue, nausea, generally just does not feeling very well. She states she was scheduled to have a hysterectomy today for ?ovarian cysts ?however she states she could not make that appointment because of help bed that she was feeling. She reports lower abdominal tenderness. No GI tenderness. No vaginal bleeding. No urinary symptoms. She states that the medicines she has at home are not helping any of her symptoms status when she came in for evaluation. Related Data Home Medications Medication Instructions Recorded Confirmed multivitamin 1 tab PO DAILY #0 08/04/12 05/10/20 [marijuana] 1 dose MISCELLANEOUS PRN PRN #0 03/16/16 05/10/20 cholecalciferol (vitamin D3) 50 2,000 unit PO DAILY 02/12/19 05/10/20 mcg (2,000 unit) capsule Previous Rx's Medication Instructions Recorded albuterol sulfate 2.5 mg INHALATION Q4-6H PRN #90 ml 06/15/19 clonidine HCl 0.2 mg tablet 0.2 mg PO DAILY #90 tab 11/11/19 pramipexole 0.5 mg tablet See Rx Instructions .ROUTE 03/15/20 .COMPLEX #270 tab chlorthalidone 25 mg tablet 25 mg PO DAILY #30 tab 04/11/20 lidocaine 1 patch TOP DAILY PRN #15 each 04/15/20 potassium chloride 10 mEq 10 meq PO DAILY #90 cap 05/10/20 capsule,extended release albuterol sulfate 90 mcg/actuation 2 puff INHALATION Q4HP PRN #1 inh 05/27/20 aerosol inhaler fluticasone furoate 100 1 inh INHALATION DAILY #14 ea 05/27/20 mcg/actuation blister powder for inhalation omeprazole 20 mg capsule,delayed 20 mg PO BID #180 cap 05/27/20 release venlafaxine 225 mg tablet,extended 225 mg PO DAILY #30 tab 06/20/20 release 24 hr hydrocodone 5 mg-acetaminophen 325 1 tab PO Q4H PRN #10 tab 07/04/20 mg tablet oxycodone 10 mg tablet 10 mg PO Q4H PRN #20 tab 07/08/20 medroxyprogesterone 10 mg tablet 10 mg PO TID #90 tab 07/12/20 methocarbamol 750 mg tablet 750 mg PO Q8H #30 tab 07/18/20 ondansetron 4 mg PO Q6H PRN #14 tab 07/25/20 oxycodone-acetaminophen [Percocet] 1 tab PO Q6H PRN #7 tab 07/25/20 Allergies Allergy/AdvReac Type Severity Reaction Status Date / Time naproxen [NAPROXEN] Allergy Severe THROAT Verified 07/25/20 16:01 SWELLING gabapentin [GABAPENTIN] Allergy Mild MAKES Verified 07/25/20 16:01 RESTLESS LEGS WORSE tomato [TOMATO] Allergy Mild BLISTERS Verified 07/25/20 16:01 ON LIPS NSAIDS (Non-Steroidal Allergy Unknown Verified 07/25/20 16:01 Anti-Inflamma [NSAIDS (NON-STEROIDAL ANTI-INFLAMMA] tramadol [From ULTRAM] Allergy Unknown vomiting Verified 07/25/20 16:01 baclofen Allergy Verified 07/25/20 16:01 Review of Systems Constitutional Constitutional: Reports fatigue, Denies fever(s), Denies headache(s), Reports lethargy and Reports malaise ENT Ears, Nose, Mouth, and Throat: Denies headache(s) Cardiovascular Cardiovascular: Denies chest pain and Denies dyspnea Respiratory Respiratory: Denies dyspnea Gastrointestinal Gastrointestinal: Reports abdominal pain, Reports nausea and Denies vomiting Genitourinary Genitourinary: Denies dysuria Genitourinary: Denies dysuria Musculoskeletal Musculoskeletal: Denies arthralgias and Denies myalgias Integumentary/Breasts Skin/Breast: Denies rash Neurologic Neurologic: Denies behavioral changes and Denies headache(s) Psychiatric Psychiatric: Denies behavioral changes Endocrine Endocrine: Reports fatigue Hematologic/Lymphatic On Anticoagulants: Yes Allergic/Immunologic Allergic/Immunologic: Denies urticaria Patient History Medical History (Updated 07/25/20 @ 19:21 by Moe Delgado DO) Abnormal Pap smear of cervix Anxiety Asthma Bone spur of right foot Chronic back pain Depression Foot pain GERD (gastroesophageal reflux disease) Lumbar spine pain Piriformis muscle pain Right Achilles tendinitis RLS (restless legs syndrome) Sciatic leg pain Shoulder pain Sore muscles Superior glenoid labrum lesion of left shoulder Traumatic tear of supraspinatus tendon of left shoulder Surgical History Anesthesia History of carpal tunnel repair (~1996) History of shoulder surgery (~2010) Status post delivery (~1993) Status post delivery (~1995) Status post trigger finger release (~2015) Status post tubal ligation (~1995) Family History Grandfather Cancer Mother Cervical cancer Early menopause Goiter Hypothyroid Diabetes mellitus Hypertension Father Dementia Social History household members: family Smoking Status: Former smoker substance use type: marijuana Smoking Status: Former smoker alcohol intake frequency: 0-2 drinks per day Substance Use Type: marijuana Exam Initial Vital Signs Initial Vital Signs: Vital Signs Temperature 99.6 F 07/25/20 15:33 Pulse Rate 104 H 07/25/20 15:33 Respiratory Rate 20 07/25/20 15:33 Blood Pressure 150/87 H 07/25/20 15:33 Pulse Oximetry 97 07/25/20 15:33 Const General: cooperative Limitations: mental status not altered HENMT Head: normal to inspection and normocephalic Resp Effort & Inspection: normal respiratory effort Auscultation: clear to auscultation bilaterally Cardio Rate: tachycardic Rhythm: regular rhythm GI Inspection: non-distended Palpation: soft and tender Skin Lesions: no lesions Rashes: no rashes Neuro General: patient alert and patient awake Cognition: normal cognition Speech: speech normal Extrem General: capillary refill normal Psych Appearance: grossly normal and well kempt Course Orders Ordered: ED Orders 07/25/20 15:50 Complete Blood Count AUTO DIFF Stat Comprehensive Metabolic Panel Stat Lactate (Lactic Acid) Stat Lipase Stat Partial Thromboplastin Time Stat Procalcitonin Stat Prothrombin Time INR Stat 07/25/20 16:08 COVID19 Stat 07/25/20 16:13 CT abdomen pelvis w con Stat 07/25/20 16:29 Urine Culture Stat Urine Microscopic Stat 07/25/20 17:07 EKG-12 Lead Stat 07/25/20 17:50 US pelvic complete Stat Discontinued Medications Sodium Chloride (Normal Saline 0.9%) 1,000 mls @ 1,000 mls/hr IV BOLUS ONE Stop: 07/25/20 16:59 Last Admin: 07/25/20 16:04 Dose: 1,000 mls/hr Documented by: JAY JAY Ondansetron HCl (Ondansetron 4 Mg/2 Ml Inj) 4 mg IV NOW ONE Stop: 07/25/20 15:39 Last Admin: 07/25/20 16:04 Dose: 4 mg Documented by: JAY JAY Vital Signs Vital signs: Vital Signs - 8 hr 07/25/20 15:33 07/25/20 17:55 07/25/20 17:59 Temperature 99.6 F Pulse Rate 104 H 102 H 97 H Respiratory Rate 20 12 Blood Pressure 150/87 H 148/79 H Pulse Oximetry 97 91 99 07/25/20 18:00 07/25/20 18:01 Temperature Pulse Rate 96 H 99 H Respiratory Rate 16 10 L Blood Pressure 155/122 H Pulse Oximetry 97 97 Medical Decision Making Medical Records Medical records reviewed: Yes I reviewed the patient's medical records. Lab Data Lab results reviewed: Yes I reviewed the patient's lab results. Result diagrams: 07/25/20 15:50 07/25/20 15:50 Labs: Lab Results 07/25/20 07/25/20 07/25/20 Range/Units 15:50 15:50 15:50 WBC 16.3 H (4.5-11.0) X10^3/uL RBC 4.46 (4.0-5.2) X10^6/uL Hgb 13.9 (12.0-16.0) g/dL Hct 41.6 (36-46) % MCV 93.2 (80-100) fL MCH 31.1 (26-34) PG MCHC 33.3 (30-36) % RDW 15.2 H (11.6-14.8) % Plt Count 466 H (150-400) X10^3/uL Neut % (Auto) 76.7 H (50-75) % Lymph % (Auto) 15.4 L (25-40) % [place] % (Auto) 7.3 (3-14) % Eos % (Auto) 0.0 L (2-4) % Baso % (Auto) 0.6 (0-2) % Neut # (Auto) 51964 H (3420-0626) /uL Lymph # (Auto) 2500 (0897-6901) /uL [place] # (Auto) 1200 H (0-900) /uL Eos # (Auto) 0 (0-450) /uL Baso # (Auto) 100 (0-100) /uL PT 12.9 H (10.1-12.7) SECONDS INR 1.1 (0.9-1.3) APTT 31 (26.4-36.2) SECONDS Sodium 137 (137-145) mmol/L Potassium 2.8 L (3.4-5.1) mmol/L Chloride 96 L (98-107) mmol/L Carbon Dioxide 36 H (22-32) mmol/L BUN 19 H (7-17) mg/dL Creatinine 0.66 (0.52-1.04) mg/dL Estimated GFR > 60.0 (>60) mL/min BUN/Creatinine Ratio 28.8 H (6-22) Glucose 116 H (70-100) mg/dL Lactate (0.7-2.1) mmol/L Calcium 9.4 (8.4-10.2) mg/dL Total Bilirubin 0.7 (0.2-1.3) mg/dL AST 46 H (14-36) IU/L ALT 31 (<35) IU/L Alkaline Phosphatase 71 (38-126) U/L Total Protein 8.3 H (6.3-8.2) g/dL Albumin 4.5 (3.5-5.0) g/dL Globulin 3.8 (1.7-4.1) g/dL Albumin/Globulin Ratio 1.2 (1.0-2.8) Lipase 90 (23-300) U/L Procalcitonin (<0.5) ng/mL Urine RBC (0-5/HPF) Urine WBC (0-5/HPF) Ur Squamous Epith Cells (0-5/HPF) Urine Bacteria (None) Ur Culture Indicated? SARS-CoV-2 (PCR) (Negative) 07/25/20 07/25/20 07/25/20 Range/Units 15:50 15:50 16:08 WBC (4.5-11.0) X10^3/uL RBC (4.0-5.2) X10^6/uL Hgb (12.0-16.0) g/dL Hct (36-46) % MCV (80-100) fL MCH (26-34) PG MCHC (30-36) % RDW (11.6-14.8) % Plt Count (150-400) X10^3/uL Neut % (Auto) (50-75) % Lymph % (Auto) (25-40) % [place] % (Auto) (3-14) % Eos % (Auto) (2-4) % Baso % (Auto) (0-2) % Neut # (Auto) (5267-4625) /uL Lymph # (Auto) (6637-1170) /uL [place] # (Auto) (0-900) /uL Eos # (Auto) (0-450) /uL Baso # (Auto) (0-100) /uL PT (10.1-12.7) SECONDS INR (0.9-1.3) APTT (26.4-36.2) SECONDS Sodium (137-145) mmol/L Potassium (3.4-5.1) mmol/L Chloride (98-107) mmol/L Carbon Dioxide (22-32) mmol/L BUN (7-17) mg/dL Creatinine (0.52-1.04) mg/dL Estimated GFR (>60) mL/min BUN/Creatinine Ratio (6-22) Glucose (70-100) mg/dL Lactate 1.4 (0.7-2.1) mmol/L Calcium (8.4-10.2) mg/dL Total Bilirubin (0.2-1.3) mg/dL AST (14-36) IU/L ALT (<35) IU/L Alkaline Phosphatase (38-126) U/L Total Protein (6.3-8.2) g/dL Albumin (3.5-5.0) g/dL Globulin (1.7-4.1) g/dL Albumin/Globulin Ratio (1.0-2.8) Lipase (23-300) U/L Procalcitonin < 0.05 (<0.5) ng/mL Urine RBC (0-5/HPF) Urine WBC (0-5/HPF) Ur Squamous Epith Cells (0-5/HPF) Urine Bacteria (None) Ur Culture Indicated? SARS-CoV-2 (PCR) Negative (Negative) 07/25/20 Range/Units 16:29 WBC (4.5-11.0) X10^3/uL RBC (4.0-5.2) X10^6/uL Hgb (12.0-16.0) g/dL Hct (36-46) % MCV (80-100) fL MCH (26-34) PG MCHC (30-36) % RDW (11.6-14.8) % Plt Count (150-400) X10^3/uL Neut % (Auto) (50-75) % Lymph % (Auto) (25-40) % [place] % (Auto) (3-14) % Eos % (Auto) (2-4) % Baso % (Auto) (0-2) % Neut # (Auto) (0012-5829) /uL Lymph # (Auto) (8213-8150) /uL [place] # (Auto) (0-900) /uL Eos # (Auto) (0-450) /uL Baso # (Auto) (0-100) /uL PT (10.1-12.7) SECONDS INR (0.9-1.3) APTT (26.4-36.2) SECONDS Sodium (137-145) mmol/L Potassium (3.4-5.1) mmol/L Chloride (98-107) mmol/L Carbon Dioxide (22-32) mmol/L BUN (7-17) mg/dL Creatinine (0.52-1.04) mg/dL Estimated GFR (>60) mL/min BUN/Creatinine Ratio (6-22) Glucose (70-100) mg/dL Lactate (0.7-2.1) mmol/L Calcium (8.4-10.2) mg/dL Total Bilirubin (0.2-1.3) mg/dL AST (14-36) IU/L ALT (<35) IU/L Alkaline Phosphatase (38-126) U/L Total Protein (6.3-8.2) g/dL Albumin (3.5-5.0) g/dL Globulin (1.7-4.1) g/dL Albumin/Globulin Ratio (1.0-2.8) Lipase (23-300) U/L Procalcitonin (<0.5) ng/mL Urine RBC 1-5/hpf (0-5/HPF) Urine WBC 5-10/hpf H (0-5/HPF) Ur Squamous Epith Cells 5-10 /hpf H (0-5/HPF) Urine Bacteria Moderate (10-30) H (None) Ur Culture Indicated? Specimen cultured SARS-CoV-2 (PCR) (Negative) Point of Care Testing Test Results Negative Urine Dip Bedside Urine Glucose Negative Bedside Urine Bilirubin - Negative Bedside Urine Ketone - Negative Urine Specific [place] 1.020 Bedside Urine Occult Blood +/- Bedside Urine pH 6.0 Bedside Urine Protein + 30 Bedside Urine Urobilinogen - Negative Bedside Urine Nitrite - Negative Bedside Urine Leukocytes - Negative Esterase Point of care testing: Point of Care Testing Test Results Negative Urine Dip Bedside Urine Glucose Negative Bedside Urine Bilirubin - Negative Bedside Urine Ketone - Negative Urine Specific [place] 1.020 Bedside Urine Occult Blood +/- Bedside Urine pH 6.0 Bedside Urine Protein + 30 Bedside Urine Urobilinogen - Negative Bedside Urine Nitrite - Negative Bedside Urine Leukocytes - Negative Esterase Imaging Data CT scan - abdomen/pelvis: Radiologist's Impression: [address] [id number] Scan ReportSigned Patient: Karime Joe EMR#: [id number]: 1970Acct:[id number]/Sex: 50 / FDate of Service: 07/25/20Loc: EDAccession Number: [id number] Procedure: CT abdomen pelvis w con Ordering Provider: Moe Delgado D.O. PROCEDURE: CT ABDOMEN PELVIS W CON INDICATIONS: Generalized abdominal pain, vomiting, leukocytosis TECHNIQUE: After the administration of intravenous contrast, 5 mm thick sections acquired from the diaphragm to the symphysis. 5 mm coronal and sagittal reformats were acquired. For radiation dose reduction, the following was used: automated exposure control, adjustment of mA and/or kV according to patient size. COMPARISON: None. FINDINGS: Image quality: Excellent. ABDOMEN: Lung bases: Lung bases are clear. Heart size is normal. Solid organs: Liver is normal in size and enhancement. Gallbladder is normal. Biliary system is non dilated. Pancreas enhances normally. Spleen is normal in size and enhancement. No adrenal nodules. Kidneys demonstrate normal size and enhancement, without hydronephrosis. Peritoneum and bowel: Bowel loops demonstrate normal wall thickness and caliber. No free fluid or air. Nodes and vessels: No retroperitoneal or mesenteric adenopathy by size cr iteria. Aorta and inferior vena cava are normal in size. Miscellaneous: No ventral hernias. PELVIS: Genitourinary: Bladder wall thickness is normal. Miscellaneous: No inguinal hernias or adenopathy. Bones: No suspicious bony lesions. No vertebral body compression fractures. IMPRESSION: No acute finding to explain abdominal pain. Dictated by: Manoj Solano M.D. on 07/25/2020 at 15:53 Approved by: Manoj Solano M.D. on 07/25/2020 at 15:54 US - BEATER BOSS: Radiologist's Impression: [address] [id number] ReportSigned Patient: Karime Joe EMR#: [id number]: 1970Acct:[id number]/Sex: 50 / FDate of Service: 07/25/20Loc: EDAccession Number: [id number] Procedure: US pelvic complete Ordering Provider: Moe Delgado D.O. PROCEDURE: US PELVIC COMPLETE INDICATIONS: History of ovarian cysts, right greater than left adnexal pa TECHNIQUE: Real-time scanning was performed of the pelvic organs, with image documentation. Additional endovaginal scanning was necessary due to incomplete visualization of the adnexal and endometrial structures by transabdominal scanning. COMPARISON: [facility], CT, CT ABDOMEN PELVIS W CON, 07/25/2020, 16:35. [facility], US, US PELVIC COMPLETE, 05/07/2020, 17:56. FINDINGS: Uterus: Uterus is normal in size at 9.5 x 4.4 x 5.3 cm. The endometrium measures 5 mm in combined thickness. Ovaries: The right ovary measures 3.6 x 2.3 x 2.9 cm. The right ovary demonstrates a normal, physiologic appearance. A normal appearing arterial waveform is confirmed to the right ovary. The left ovary is not seen. No adnexal masses are seen on either side. Other: No pathologic free abdominal or pelvic fluid. IMPRESSION: Normal right ovary, without torsion. Nonvisualization of the left ovary. Dictated by: Efrain Nath M.D. on 07/25/2020 at 18:09 Approved by: Efrain Nath M.D. on 07/25/2020 at 18:10 ECG Data Attestation: I personally reviewed and interpreted this ECG as follows: Prior ECG tracings: not available for review Interpretation: Sinus rhythm Ventricular rate 88 Normal axis Normal QRS Normal QTC Nonspecific ST T wave changes MDM Narrative Medical decision making narrative: Patient's CT scan and pelvic ultrasound today does not show any signs of an acute infection or an emergent surgical issue. Informed her that she needed to reschedule with her surgeon partner since she missed her appointment today for her hysterectomy. She states that she does not have any pain medication at home. States she took her last pain medication on Saturday. Informed her that I will refilled I small amount of her pain medicine but she needs to contact either her primary doctor her surgeon partner doctor for refills. She expressed understanding and agreement. Discharge Plan Departure Patient Disposition: Home Clinical Impression: Chronic female pelvic pain Instructions: DI for Pelvic Pain Activity Restrictions/Additional Instructions: Continue all of your medications as directed. Any further pain medication will need to come from either your primary doctor or your GI provider. Return to the emergency department for any new symptoms. Prescriptions: New oxycodone-acetaminophen [Percocet] 5-325 mg tablet 1 tab PO Q6H PRN (Reason: pain) Qty: 7 RF: 0 ondansetron 4 mg tablet,disintegrating 4 mg PO Q6H PRN (Reason: nausea and vomiting) Qty: 14 RF: 0 No Action multivitamin Tablet 1 tab PO DAILY Qty: 0 RF: 0 [marijuana] 1 dose miscellaneous PRN PRN (Reason: as directed) Qty: 0 RF: 0 clonidine HCl 0.2 mg tablet 0.2 mg PO DAILY Qty: 90 RF: 3 pramipexole 0.5 mg tablet See Rx Instructions .ROUTE .COMPLEX Qty: 270 RF: 3 chlorthalidone 25 mg tablet 25 mg PO DAILY Qty: 30 RF: 3 venlafaxine 225 mg tablet extended release 24hr 225 mg PO DAILY Qty: 30 RF: 2 hydrocodone-acetaminophen 5-325 mg tablet 1 tab PO Q4H PRN (Reason: acute rotator cuff pain) Qty: 10 RF: 0 oxycodone 10 mg tablet 10 mg PO Q4H PRN (Reason: pain) Qty: 20 RF: 0 medroxyprogesterone [Provera] 10 mg tablet 10 mg PO TID Qty: 90 RF: 0 methocarbamol 750 mg tablet 750 mg PO Q8H Qty: 30 RF: 3 albuterol sulfate 2.5 mg /3 mL (0.083 %) solution for nebulization 2.5 mg INHALATION Q4-6H PRN (Reason: shortness of breath or wheezing) Qty: 90 RF: 5 omeprazole 20 mg capsule,delayed release(DR/EC) 20 mg PO BID Qty: 180 RF: 1 albuterol sulfate [Ventolin HFA] 90 mcg/actuation HFA aerosol inhaler 2 puff INHALATION Q4HP PRN (Reason: bronchospasm) Qty: 1 RF: 2 fluticasone furoate 100 mcg/actuation blister with device 1 inh inhalation DAILY Qty: 14 RF: 0 potassium chloride 10 mEq capsule, extended release 10 meq PO DAILY Qty: 90 RF: 3 cholecalciferol (vitamin D3) 2,000 unit capsule 2,000 unit PO DAILY RF: 0 lidocaine 5 % adhesive patch,medicated 1 patch TOP DAILY PRN (Reason: pain) Qty: 15 RF: 0 Referrals: Margi Mejia DO [Primary Care Provider] -
[2020-07-25 16:14] LABS: Lactate (Lactic Acid) 1.4 mmol/L (0.7-2.1)
[2020-07-25 16:18] LABS: Alanine Aminotransferase 31 IU/L (<35); Albumin 4.5 g/dL (3.5-5.0); Albumin Globulin Ratio 1.2 (1.0-2.8); Alkaline Phosphatase 71 U/L (38-126); Aspartate Aminotransferase 46 IU/L (14-36); BUN Creatinine Ratio 28.8 (6-22); Bilirubin Total 0.7 mg/dL (0.2-1.3); Blood Urea Nitrogen 19 mg/dL (7-17); Calcium 9.4 mg/dL (8.4-10.2); Carbon Dioxide 36 mmol/L (22-32); Chloride 96 mmol/L (98-107); Estimated Glomerular Filt Rate > 60.0 mL/min (>60); Globulin 3.8 g/dL (1.7-4.1); Glucose 116 mg/dL (70-100); Lipase 90 U/L (23-300); Sodium 137 mmol/L (137-145); Total Protein 8.3 g/dL (6.3-8.2)
[2020-07-25 16:21] LABS: HEMOLYSIS 91 (0-50)
[2020-07-25 16:22] LABS: Potassium 2.8 mmol/L (3.4-5.1)
[2020-07-25 16:35] LABS: Procalcitonin < 0.05 ng/mL (<0.5)
[2020-07-25 16:51] LABS: COVID19 -Nasal RAPID Negative (Negative)
--- NOTE | 2020-07-25 17:50 | DI.US.S_ITS ---
PROCEDURE: US PELVIC COMPLETE INDICATIONS: History of ovarian cysts, right greater than left adnexal pa TECHNIQUE: Real-time scanning was performed of the pelvic organs, with image documentation. Additional endovaginal scanning was necessary due to incomplete visualization of the adnexal and endometrial structures by transabdominal scanning. COMPARISON: [facility], CT, CT ABDOMEN PELVIS W CON, 07/25/2020, 16:35. [facility], US, US PELVIC COMPLETE, 05/07/2020, 17:56. FINDINGS: Uterus: Uterus is normal in size at 9.5 x 4.4 x 5.3 cm. The endometrium measures 5 mm in combined thickness. Ovaries: The right ovary measures 3.6 x 2.3 x 2.9 cm. The right ovary demonstrates a normal, physiologic appearance. A normal appearing arterial waveform is confirmed to the right ovary. The left ovary is not seen. No adnexal masses are seen on either side. Other: No pathologic free abdominal or pelvic fluid. IMPRESSION: Normal right ovary, without torsion. Nonvisualization of the left ovary. Dictated by: Efrain Nath M.D. on 07/25/2020 at 18:09 Approved by: Efrain Nath M.D. on 07/25/2020 at 18:10
[2020-07-25 18:15] LABS: RBC Urine 1-5/HPF (0-5/HPF); WBC Urine 5-10/HPF (0-5/HPF)
[2020-07-25 18:16] LABS: Bacteria Urine Moderate (10-30); Culture Indicated Urine Specimen Cultured; Squamous Epithelial Cell Urine 5-10 /HPF (0-5/HPF)
[2020-07-25] MEDS: OXYCODONE/ACETAMINOPHEN 5/325 TABLET 2 TAB PO (19:30)
== END 2020-07-25 19:55 | disposition home or self-care (01) ==
PROVIDERS: Emergency Provider Emergency Medicine; PCP Family Medicine
DX: R10.2 Pelvic and perineal pain (principal); R11.0 Nausea; R53.83 Other fatigue; Z20.822 Contact with and (suspected) exposure to COVID-19; D72.829 Elevated white blood cell count, unspecified
CPT/HCPCS: 36415; 74177; 76856; 80053; 81003; 81015; 81025; 83605; 83690; 84145; 85025; 85610; 85730; 87086; 87635; 93005; 93010; 96361; 96374; 99284; C9803; J2405; Q9967

== ENCOUNTER 2020-08-31 16:53 | Emergency (ER) | payer MEDICARE, MEDICAID, SELFPAY ==
[2020-08-31 17:04] VITALS: BP 139/65; PULSE 105; RESP 22; TEMP 36.2; O2SAT 98
[2020-08-31] MEDS: KETOROLAC 60 MG/2 ML VIAL 30 MG IM (18:27)
--- NOTE | 2020-08-31 18:46 | ED.ABDPAIN ---
HPI - Abdominal Pain <Bárbara LewisKERRY - Last Filed: 08/31/20 20:02> General Chief Complaint: Abdominal Pain Stated Complaint: pain right groin Time Seen by Provider: 08/31/20 17:09 Source: patient Mode of arrival: Ambulatory History of Present Illness HPI narrative: 50yo female with a history of chronic abdominal pain, presents emergency department for right lower groin pain that has been ongoing for the past 6-8 months. Patient states that she has been seen multiple times for this issue, she recently seen a provider at [place] for ovarian cyst. Patient states the pain gets worse with position changes, she states it is a sharp shooting pain that is worse when she sits with her right leg out, she has a history of sciatica as well chronic back pain. She states this pain worsens when she is stressed, she states she is currently stressed as there was concern about losing her home. Patient noticed a hard lump in her groin that causes pain when she palpates this area. She has noticed some episodes of diarrhea which are common for her when she has increased stress, patient states his stools are regular today, she is able to eat and drink without any difficulty. She denies any fevers, chills, abdominal pain, chest pain, shortness of breath, or any other concerns. Patient states she is allergic to NSAIDs but is able to take Toradol injections. Related Data Home Medications Medication Instructions Recorded Confirmed multivitamin 1 tab PO DAILY #0 08/04/12 05/10/20 [marijuana] 1 dose MISCELLANEOUS PRN PRN #0 03/16/16 05/10/20 cholecalciferol (vitamin D3) 50 2,000 unit PO DAILY 02/12/19 05/10/20 mcg (2,000 unit) capsule Previous Rx's Medication Instructions Recorded albuterol sulfate 2.5 mg INHALATION Q4-6H PRN #90 ml 06/15/19 clonidine HCl 0.2 mg tablet 0.2 mg PO DAILY #90 tab 11/11/19 lidocaine 1 patch TOP DAILY PRN #15 each 04/15/20 potassium chloride 10 mEq 10 meq PO DAILY #90 cap 05/10/20 capsule,extended release albuterol sulfate 90 mcg/actuation 2 puff INHALATION Q4HP PRN #1 inh 05/27/20 aerosol inhaler fluticasone furoate 100 1 inh INHALATION DAILY #14 ea 05/27/20 mcg/actuation blister powder for inhalation omeprazole 20 mg capsule,delayed 20 mg PO BID #180 cap 05/27/20 release venlafaxine 225 mg tablet,extended 225 mg PO DAILY #30 tab 06/20/20 release 24 hr hydrocodone 5 mg-acetaminophen 325 1 tab PO Q4H PRN #10 tab 07/04/20 mg tablet methocarbamol 750 mg tablet 750 mg PO Q8H #30 tab 07/18/20 ondansetron 4 mg PO Q6H PRN #14 tab 07/25/20 oxycodone-acetaminophen [Percocet] 1 tab PO Q6H PRN #7 tab 07/25/20 oxycodone 10 mg tablet 10 mg PO Q4H PRN #20 tab 07/26/20 chlorthalidone 25 mg tablet 25 mg PO DAILY #30 tab 08/02/20 medroxyprogesterone 10 mg tablet See Rx Instructions .ROUTE 08/08/20 .COMPLEX #90 tab pramipexole 0.5 mg tablet See Rx Instructions .ROUTE 08/29/20 .COMPLEX #270 tab hydrocodone-acetaminophen 1 tab PO BID PRN #7 tab 08/31/20 Allergies Allergy/AdvReac Type Severity Reaction Status Date / Time naproxen [NAPROXEN] Allergy Severe THROAT Verified 07/25/20 16:01 SWELLING gabapentin [GABAPENTIN] Allergy Mild MAKES Verified 07/25/20 16:01 RESTLESS LEGS WORSE tomato [TOMATO] Allergy Mild BLISTERS Verified 07/25/20 16:01 ON LIPS NSAIDS (Non-Steroidal Allergy Unknown Verified 07/25/20 16:01 Anti-Inflamma [NSAIDS (NON-STEROIDAL ANTI-INFLAMMA] tramadol [From ULTRAM] Allergy Unknown vomiting Verified 07/25/20 16:01 baclofen Allergy Verified 07/25/20 16:01 Review of Systems <KERRY Milligan - Last Filed: 08/31/20 20:02> Review of Systems Narrative: REVIEW OF SYSTEMS: GENERAL: Denies fever or chills. HENT: No head trauma. CARDIOVASCULAR: No chest pain or syncope. RESPIRATORY: No cough. GASTROINTESTINAL: No abdominal pain, see HPI. GENITOURINARY: No flank pain or dysuria. MUSCULOSKELETAL: Complains of right lower groin pain, see HPI. INTEGUMENTARY: No rash. NEURO: No numbness or tingling. PSYCH: No behavior or mood changes. Patient History <KERRY Milligan - Last Filed: 08/31/20 20:02> Medical History (Updated 08/31/20 @ 19:15 by KERRY Milligan) Abnormal Pap smear of cervix Anxiety Asthma Bone spur of right foot Chronic back pain Depression Foot pain GERD (gastroesophageal reflux disease) Lumbar spine pain Piriformis muscle pain Right Achilles tendinitis RLS (restless legs syndrome) Sciatic leg pain Shoulder pain Sore muscles Superior glenoid labrum lesion of left shoulder Traumatic tear of supraspinatus tendon of left shoulder Surgical History Anesthesia History of carpal tunnel repair (~1996) History of shoulder surgery (~2010) Status post delivery (~1993) Status post delivery (~1995) Status post trigger finger release (~2015) Status post tubal ligation (~1995) Family History Grandfather Cancer Mother Cervical cancer Early menopause Goiter Hypothyroid Diabetes mellitus Hypertension Father Dementia Social History household members: family Smoking Status: Former smoker substance use type: marijuana Smoking Status: Former smoker alcohol intake frequency: 0-2 drinks per day Substance Use Type: marijuana Exam <KERRY Milligan - Last Filed: 08/31/20 20:02> Initial Vital Signs Initial Vital Signs: Vital Signs Temperature 97.2 F L 08/31/20 17:04 Pulse Rate 105 H 08/31/20 17:04 Respiratory Rate 22 08/31/20 17:04 Blood Pressure 139/65 08/31/20 17:04 Pulse Oximetry 98 08/31/20 17:04 PHYSICAL EXAMINATION: GENERAL: Awake and alert. HENT: Normocephalic, atraumatic. EYES: Conjunctiva pink, sclera white, no periorbital swelling. CARDIOVASCULAR: S1 and S2 sounds normal. Regular rate and rhythm, no murmurs, clicks, or bruits. No pedal edema. RESPIRATORY: Normal respiratory rate, trachea midline, airway patent. No stridor, nasal flaring or accessory muscle use. Lungs are clear in all [place] without wheeze, rhonchi, or crackles. GASTROINTESTINAL: Bowel sounds normoactive. Abdomen is soft and non-tender. No organomegaly, no palpable masses. GENITALURINARY: No flank tenderness. MUSCULOSKELETAL: Tenderness to right groin, small muscle spasm palpated, pain was reproduced with palpation of this not as well as internal hip rotation and external hip rotation. Normal gait and coordination. EXTREMITIES: CMS intact. SKIN: Warm, dry, soft, appropriate color for ethnicity. No lesions, rashes, or wounds to visualized areas. NEURO: Alert and Oriented X 3. Good coordination. No ataxia, or sensory deficits, or cognitive issues. PSYCH: Appropriate affect and mood. <Robert Irvin MD - Last Filed: 08/31/20 23:22> Initial Vital Signs Initial Vital Signs: Vital Signs Temperature 97.2 F L 08/31/20 17:04 Pulse Rate 105 H 08/31/20 17:04 Respiratory Rate 22 08/31/20 17:04 Blood Pressure 139/65 08/31/20 17:04 Pulse Oximetry 98 08/31/20 17:04 Course <KERRY Milligan - Last Filed: 08/31/20 20:02> Course Course Narrative: Patient given Toradol in the emergency department, she states she is able to take Toradol despite her allergies. Patient reported significant improvement with pain approximately 30 minutes post Toradol injection. Orders Ordered: Discontinued Medications Ketorolac Tromethamine (Ketorolac 60 Mg/2 Ml Vial) 30 mg IM NOW ONE Stop: 08/31/20 18:22 Last Admin: 08/31/20 18:27 Dose: 30 mg Documented by: ERICA Consultations Consultation #1: Patient staffed with Dr. Irvin discussed plan of care in patient's symptoms as well as patient's history with multiple abdominal exams. Vital Signs Vital signs: Vital Signs - 8 hr 08/31/20 17:04 08/31/20 19:16 Temperature 97.2 F L Pulse Rate 105 H 80 Respiratory Rate 22 16 Blood Pressure 139/65 147/83 H Pulse Oximetry 98 98 <Robetr Irvin MD - Last Filed: 08/31/20 23:22> Orders Ordered: Discontinued Medications Ketorolac Tromethamine (Ketorolac 60 Mg/2 Ml Vial) 30 mg IM NOW ONE Stop: 08/31/20 18:22 Last Admin: 08/31/20 18:27 Dose: 30 mg Documented by: ERICA Vital Signs Vital signs: Vital Signs - 8 hr 08/31/20 17:04 08/31/20 19:16 Temperature 97.2 F L Pulse Rate 105 H 80 Respiratory Rate 22 16 Blood Pressure 139/65 147/83 H Pulse Oximetry 98 98 [facility] - Abdominal Pain <Bárbara Lewis [employer] - Last Filed: 08/31/20 20:02> Medical Records Attestation: I reviewed the patient's medical records. Lab Data Attestation: I reviewed the patient's lab results. [facility] Narrative Medical decision making narrative: 50-year-old female with chronic abdominal pain, presents emergency department for right groin pain that is been ongoing for the past 6-8 months. I suspect this is most likely musculoskeletal in origin given reproducible pain with internal and external rotation or hip, description of pain, and palpation of a palpable muscle spasm in the groin. Additionally, patient's pain was significantly improved with administration of Toradol. Less likely acute abdominal etiology given lack of fever, abdominal pain on examination, or any other concerns. She did mention she had an episode of diarrhea however, patient reported episodes of diarrhea happen with significant stress, they are undergoing current significant stress. Diarrhea has resolved, she is able to eat and drink without any difficulties. Discussed history of ovarian cysts, patient was not tender with palpation of lower pelvic region. Discussed with patient frozen constant imaging given significant serial abdominal CTs, patient does not have abdominal pain at this time, and does not have any other concerning symptoms such as fevers. Initially patient's heart rate was slightly elevated, after pain was controlled heart rate has returned to normal. Patient was given a small amount of Vicodin to help with pain given her allergies history of ulcer she cannot take NSAIDs orally. She is encouraged to follow-up with PCP in the next few days for further evaluation. ED/Return precautions given for new or worsening symptoms especially fever, movement of pain, changing pain, abdominal pain, or any other concerns. Patient agreed to plan of care verbalized understanding. Discharge Plan Departure Patient Disposition: Home Clinical Impression: Piriformis muscle pain Groin pain Qualifiers: Laterality: right Qualified Code(s): R10.31 - Right lower quadrant pain Instructions: DI for Groin Strain Activity Restrictions/Additional Instructions: Thank you for entrusting me with your care today. As discussed, I suspect your pain is most likely caused by piriformis syndrome, this can cause this sharp shooting pain that your feeling. Additionally, I did palpate a muscle spasm in that area which could be adding to pain. Recommend gentle stretches, changing the way the way you sleep and sit as often as possible. I prescribed you a small amount of pain medication to help with this, sent to our allergic to NSAIDs. This was sent to [facility] in [place] You have been prescribed a narcotic medication, this medication can make you drowsy. Do not drive while using this medication or perform activities that require mental alertness. These medications can also make you constipated, please use [id number] docusate sodium as needed for constipation. Please make an appointment with your primary care provider in the next week for further evaluation. Return emergency department for any new or worsening symptoms such as fevers, worsening pain, uncontrollable vomiting, or any other concerns. Prescriptions: New hydrocodone-acetaminophen 5-325 mg tablet 1 tab PO BID PRN (Reason: pain) Qty: 7 RF: 0 No Action multivitamin Tablet 1 tab PO DAILY Qty: 0 RF: 0 [marijuana] 1 dose miscellaneous PRN PRN (Reason: as directed) Qty: 0 RF: 0 clonidine HCl 0.2 mg tablet 0.2 mg PO DAILY Qty: 90 RF: 3 venlafaxine 225 mg tablet extended release 24hr 225 mg PO DAILY Qty: 30 RF: 2 hydrocodone-acetaminophen 5-325 mg tablet 1 tab PO Q4H PRN (Reason: acute rotator cuff pain) Qty: 10 RF: 0 methocarbamol 750 mg tablet 750 mg PO Q8H Qty: 30 RF: 3 oxycodone 10 mg tablet 10 mg PO Q4H PRN (Reason: pain) Qty: 20 RF: 0 chlorthalidone 25 mg tablet 25 mg PO DAILY Qty: 30 RF: 3 medroxyprogesterone 10 mg tablet See Rx Instructions .ROUTE .COMPLEX Qty: 90 RF: 2 pramipexole 0.5 mg tablet See Rx Instructions .ROUTE .COMPLEX Qty: 270 RF: 3 albuterol sulfate 2.5 mg /3 mL (0.083 %) solution for nebulization 2.5 mg INHALATION Q4-6H PRN (Reason: shortness of breath or wheezing) Qty: 90 RF: 5 omeprazole 20 mg capsule,delayed release(DR/EC) 20 mg PO BID Qty: 180 RF: 1 albuterol sulfate [Ventolin HFA] 90 mcg/actuation HFA aerosol inhaler 2 puff INHALATION Q4HP PRN (Reason: bronchospasm) Qty: 1 RF: 2 fluticasone furoate 100 mcg/actuation blister with device 1 inh inhalation DAILY Qty: 14 RF: 0 potassium chloride 10 mEq capsule, extended release 10 meq PO DAILY Qty: 90 RF: 3 cholecalciferol (vitamin D3) 2,000 unit capsule 2,000 unit PO DAILY RF: 0 lidocaine 5 % adhesive patch,medicated 1 patch TOP DAILY PRN (Reason: pain) Qty: 15 RF: 0 oxycodone-acetaminophen [Percocet] 5-325 mg tablet 1 tab PO Q6H PRN (Reason: pain) Qty: 7 RF: 0 ondansetron 4 mg tablet,disintegrating 4 mg PO Q6H PRN (Reason: nausea and vomiting) Qty: 14 RF: 0 Referrals: Margi Mejia DO [Primary Care Provider] -
[2020-08-31 19:16] VITALS: BP 147/83; PULSE 80; RESP 16; O2SAT 98
== END 2020-08-31 19:19 | disposition home or self-care (01) ==
PROVIDERS: Emergency Provider Nurse Practitioner; PCP Family Medicine
DX: R10.31 Right lower quadrant pain (principal); M79.18 Myalgia, other site
CPT/HCPCS: 96372; 99283; J1885

== ENCOUNTER → 2020-09-09 07:03 | Outpatient (CLI) | payer MEDICARE, MEDICAID, SELFPAY ==
--- NOTE | 2020-09-09 07:04 | DI.US.S_ITS ---
PROCEDURE: US ABDOMEN LIMITED INDICATIONS: RIGHT INGUINAL TENDER LUMP TECHNIQUE: Real-time focused scanning was performed of the abdomen, with image documentation. COMPARISON: None. FINDINGS: Grayscale ultrasound images of the right inguinal area were performed. Normal appearing tissue is identified with no evidence of inguinal hernia. Valsalva maneuver was also performed with no evidence of inguinal hernia. IMPRESSION: No ultrasound evidence of inguinal hernia. Dictated by: Dae Garcia M.D. on 09/09/2020 at 8:11 Approved by: Dae Garcia M.D. on 09/09/2020 at 8:12
== END ==
PROVIDERS: PCP Family Medicine; Referring Provider Family Medicine; Visit Provider Family Medicine
DX: R19.09 Other intra-abdominal and pelvic swelling, mass and lump (principal)
CPT/HCPCS: 76705

== ENCOUNTER 2020-09-30 15:41 | Emergency (ER) | payer MEDICARE, MEDICAID, SELFPAY ==
[2020-09-30 15:56] VITALS: BP 184/107; PULSE 98; RESP 22; TEMP 36.4; O2SAT 99; BMI 49.4
[2020-09-30 17:02] VITALS: BP 146/78; PULSE 99; RESP 16; O2SAT 99
--- NOTE | 2020-09-30 18:03 | ED.NAVMDI ---
HPI - Nausea/Vomiting/Diarrhea General Chief complaint: Nausea/Vomiting/Diarrhea Stated complaint: something wrong with esophagus, cant swallow Time Seen by Provider: 09/30/20 18:03 Source: patient Mode of arrival: Family Vehicle Limitations: no limitations History of Present Illness HPI Narrative: 50-year-old woman with morbid obesity, reflux, significant depression with recently dramatically increased stressors, restless leg syndrome, chronic back pain for which she uses methocarbamol and daily marijuana as well as hypertension presents with 4 days of severe emesis. She describes it as a souring or burning in her stomach followed by vomiting. She has been unable to keep any medications down for the last 4 days is having hot and cold sweats related to the severity of the emesis but no overt fevers. She typically has diarrhea this is continued. She has diffuse abdominal pain. She states that episodes such as these have been going on for the last 6-9 months there dramatically worse with stress he she has not yet had any significant GI workup and has never had an upper endoscopy. She is concerned that she has a ulcer. She denies palpitations she notes esophageal/central chest pain particularly worse after vomiting. She has had no flank pain no dysuria still is making urine. No specific headaches or neurologic changes have been appreciated Related Data Home Medications Medication Instructions Recorded Confirmed multivitamin 1 tab PO DAILY #0 08/04/12 09/02/20 [marijuana] 1 dose MISCELLANEOUS PRN PRN #0 03/16/16 09/02/20 cholecalciferol (vitamin D3) 50 2,000 unit PO DAILY 02/12/19 09/02/20 mcg (2,000 unit) capsule Previous Rx's Medication Instructions Recorded albuterol sulfate 2.5 mg INHALATION Q4-6H PRN #90 ml 06/15/19 clonidine HCl 0.2 mg tablet 0.2 mg PO DAILY #90 tab 11/11/19 lidocaine 1 patch TOP DAILY PRN #15 each 04/15/20 potassium chloride 10 mEq 10 meq PO DAILY #90 cap 05/10/20 capsule,extended release albuterol sulfate 90 mcg/actuation 2 puff INHALATION Q4HP PRN #1 inh 05/27/20 aerosol inhaler fluticasone furoate 100 1 inh INHALATION DAILY #14 ea 05/27/20 mcg/actuation blister powder for inhalation omeprazole 20 mg capsule,delayed 20 mg PO BID #180 cap 05/27/20 release ondansetron 4 mg PO Q6H PRN #14 tab 07/25/20 chlorthalidone 25 mg tablet 25 mg PO DAILY #30 tab 08/02/20 medroxyprogesterone 10 mg tablet See Rx Instructions .ROUTE 08/08/20 .COMPLEX #90 tab pramipexole 0.5 mg tablet See Rx Instructions .ROUTE 08/29/20 .COMPLEX #270 tab hydrocodone-acetaminophen 1 tab PO BID PRN #7 tab 08/31/20 methocarbamol 750 mg tablet 750 mg PO Q8H #90 tab 09/02/20 venlafaxine 225 mg tablet,extended 225 mg PO DAILY #30 tab 09/07/20 release 24 hr promethazine 25 mg PO Q6H PRN #30 tab 09/30/20 promethazine 25 mg HI Q6H PRN #12 ea 09/30/20 Allergies Allergy/AdvReac Type Severity Reaction Status Date / Time naproxen [NAPROXEN] Allergy Severe THROAT Verified 09/30/20 16:00 SWELLING gabapentin [GABAPENTIN] Allergy Mild MAKES Verified 09/30/20 16:00 RESTLESS LEGS WORSE tomato [TOMATO] Allergy Mild BLISTERS Verified 09/30/20 16:00 ON LIPS NSAIDS (Non-Steroidal Allergy Unknown Verified 09/30/20 16:00 Anti-Inflamma [NSAIDS (NON-STEROIDAL ANTI-INFLAMMA] tramadol [From ULTRAM] Allergy Unknown vomiting Verified 09/30/20 16:00 baclofen Allergy Verified 09/30/20 16:00 Review of Systems Review of Systems Narrative: Remainder of complete review of systems is otherwise unremarkable except for that included in the HPI. Patient History Medical History Abnormal Pap smear of cervix Anxiety Asthma Bone spur of right foot Chronic back pain Depression Foot pain GERD (gastroesophageal reflux disease) Lumbar spine pain Morbid obesity with body mass index (BMI) greater than or equal to 50 (08/11/14) Piriformis muscle pain Right Achilles tendinitis RLS (restless legs syndrome) Sciatic leg pain Shoulder pain Sore muscles Superior glenoid labrum lesion of left shoulder Traumatic tear of supraspinatus tendon of left shoulder Surgical History Anesthesia History of carpal tunnel repair (~1996) History of shoulder surgery (~2010) Status post delivery (~1993) Status post delivery (~1995) Status post trigger finger release (~2015) Status post tubal ligation (~1995) Family History Grandfather Cancer Mother Cervical cancer Early menopause Goiter Hypothyroid Diabetes mellitus Hypertension Father Dementia Social History household members: family Smoking Status: Former smoker substance use type: marijuana Smoking Status: Former smoker alcohol intake frequency: 0-2 drinks per day Substance Use Type: marijuana Exam Narrative Exam Narrative: General: Generally ill-appearing, flushed, mildly diaphoretic riding with abdominal pain and severity of her nausea. HEENT: Moist mucous membranes, normal sclera with reactive pupils, Respiratory: Lungs are clear to auscultation, no wheezing no rales no rhonchi. Full and symmetrical air movement Cardiac: Regular rate and rhythm no murmurs no bruits Abdomen: Soft, diffusely tender without rebound or guarding, good bowel tones, no flank pain Skin: Flushed, no rashes Neurologic: Grossly neurologically intact with no obvious asymmetries or abnormalities Extremities: No trauma, well perfused Psych: Cooperative, appropriate insight and affect Initial Vital Signs Initial Vital Signs: Vital Signs Temperature 97.6 F 09/30/20 15:56 Pulse Rate 98 H 09/30/20 15:56 Respiratory Rate 22 09/30/20 15:56 Blood Pressure 184/107 H 09/30/20 15:56 Pulse Oximetry 99 09/30/20 15:56 Course Orders Ordered: ED Orders 09/30/20 18:45 Complete Blood Count AUTO DIFF Stat Comprehensive Metabolic Panel Stat Discontinued Medications Diphenhydramine HCl (Diphenhydramine 50 Mg/Ml Vial) 25 mg IV NOW ONE Stop: 09/30/20 18:21 Last Admin: 09/30/20 18:31 Dose: 25 mg Documented by: AARON Sodium Chloride (Normal Saline 0.9%) 1,000 mls @ 1,000 mls/hr IV BOLUS ONE Stop: 09/30/20 19:19 Last Admin: 09/30/20 18:32 Dose: 1,000 mls/hr Documented by: AARON Potassium Chloride (Potassium Chloride 20 Meq Tab) 40 meq PO NOW ONE Stop: 09/30/20 19:57 Last Admin: 09/30/20 20:03 Dose: 40 meq Documented by: Pramipexole Dihydrochloride (Pramipexole 0.25 Mg Tablet) 0.5 mg PO NOW ONE Stop: 09/30/20 19:45 Last Admin: 09/30/20 19:50 Dose: 0.5 mg Documented by: DAISY Prochlorperazine (Prochlorperazine 10 Mg/2 Ml Vial) 10 mg IV NOW ONE Stop: 09/30/20 18:21 Last Admin: 09/30/20 18:32 Dose: 10 mg Documented by: AARON Vital Signs Vital signs: Vital Signs - 8 hr 09/30/20 15:56 09/30/20 17:02 09/30/20 18:49 Temperature 97.6 F Pulse Rate 98 H 99 H 86 Respiratory Rate 22 16 18 Blood Pressure 184/107 H 146/78 H 154/83 H Pulse Oximetry 99 99 99 MDM - Nausea/Vomiting/Diarrhea Medical Records Attestation: I reviewed the patient's medical records. Lab Data Attestation: I reviewed the patient's lab results. Result diagrams: 09/30/20 18:45 09/30/20 18:45 Labs: Lab Results 09/30/20 09/30/20 Range/Units 18:45 18:45 WBC 13.2 H (4.5-11.0) X10^3/uL RBC 4.56 (4.0-5.2) X10^6/uL Hgb 14.4 (12.0-16.0) g/dL Hct 42.7 (36-46) % MCV 93.7 (80-100) fL MCH 31.6 (26-34) PG MCHC 33.8 (30-36) % RDW 14.8 (11.6-14.8) % Plt Count 414 H (150-400) X10^3/uL Neut % (Auto) 70.8 (50-75) % Lymph % (Auto) 20.9 L (25-40) % Richardson % (Auto) 7.3 (3-14) % Eos % (Auto) 0.2 L (2-4) % Baso % (Auto) 0.8 (0-2) % Neut # (Auto) 9300 H (2064-1555) /uL Lymph # (Auto) 2800 (8469-9319) /uL Richardson # (Auto) 1000 H (0-900) /uL Eos # (Auto) 0 (0-450) /uL Baso # (Auto) 100 (0-100) /uL Sodium 140 (137-145) mmol/L Potassium 2.8 L (3.4-5.1) mmol/L Chloride 97 L (98-107) mmol/L Carbon Dioxide 33 H (22-32) mmol/L BUN 15 (7-17) mg/dL Creatinine 0.60 (0.52-1.04) mg/dL Estimated GFR > 60.0 (>60) mL/min BUN/Creatinine Ratio 25.0 H (6-22) Glucose 100 (70-100) mg/dL Calcium 10.2 (8.4-10.2) mg/dL Total Bilirubin 0.5 (0.2-1.3) mg/dL AST 33 (14-36) IU/L ALT 27 (<35) IU/L Alkaline Phosphatase 67 (38-126) U/L Total Protein 8.0 (6.3-8.2) g/dL Albumin 4.4 (3.5-5.0) g/dL Globulin 3.6 (1.7-4.1) g/dL Albumin/Globulin Ratio 1.2 (1.0-2.8) Point of Care Testing Glucose POC 89 Urine Dip Bedside Urine Glucose Negative Bedside Urine Bilirubin - Negative Bedside Urine Ketone - Negative Urine Specific Hoyt 1.010 Bedside Urine Occult Blood +/- Bedside Urine pH 7 Bedside Urine Protein - Negative Bedside Urine Urobilinogen - Negative Bedside Urine Nitrite - Negative Bedside Urine Leukocytes - Negative Esterase MDM Narrative Medical decision making narrative: Patient is feeling much better after fluids, prochlorperazine, Benadryl and pramipexole. She has mild leukocytosis that I suspect is demargination rather than infection. Potassium is low and she is given 40 mEq in the emergency department and will have her resume her usual potassium tomorrow with the rest of her usual medications. They did some reading on cannabinoid hyperemesis syndrome and both agree that this exactly describes all of her symptoms. We talked about the need to stop all THC or continue to have worsening episodes of vomiting. She is going to try CBD only products and follow-up with Dr. Mejia to talk about additional options for pain control for her chronic back pain For the cannabinoid hyperemesis syndrome will give her prescription for Phenergan. Tablets as well as suppositories if she is unable to keep the tablets down. Will continue with all of her usual medications starting tomorrow including the proton pump inhibitor. She is safe for home discharge Discharge Plan Departure Patient Disposition: Home Clinical Impression: Cannabinoid hyperemesis syndrome, Acute hypokalemia Instructions: DI for Cannabinoid Hyperemesis Syndrome Activity Restrictions/Additional Instructions: Thank you for coming in today I am glad we were able to get to feeling a little bit better and figure out that that these recurrent episodes of vomiting are very likely cannabinoid hyperemesis syndrome. Stopping THC completely is going to be the only thing that truly solve this problem. Hot showers can help a bit and using the Phenergan can help slightly as well. Prescription for the Phenergan pills and suppositories have been electronically transmitted to [facility] for you today If you do want to consider trying CBD only products you may find that you get the pain benefits without the THC complications. It can take a number of months for THC to get completely out of your body and you may still have additional episodes of nausea. Please follow-up with Dr. Mejia and continue all of your usual home medications I hope you feel better Prescriptions: New promethazine 25 mg tablet 25 mg PO Q6H PRN (Reason: nausea and vomiting) Qty: 30 RF: 0 promethazine 25 mg suppository 25 mg HI Q6H PRN (Reason: nausea and vomiting) Qty: 12 RF: 0 No Action multivitamin Tablet 1 tab PO DAILY Qty: 0 RF: 0 [marijuana] 1 dose miscellaneous PRN PRN (Reason: as directed) Qty: 0 RF: 0 clonidine HCl 0.2 mg tablet 0.2 mg PO DAILY Qty: 90 RF: 3 chlorthalidone 25 mg tablet 25 mg PO DAILY Qty: 30 RF: 3 medroxyprogesterone 10 mg tablet See Rx Instructions .ROUTE .COMPLEX Qty: 90 RF: 2 pramipexole 0.5 mg tablet See Rx Instructions .ROUTE .COMPLEX Qty: 270 RF: 3 venlafaxine 225 mg tablet extended release 24hr 225 mg PO DAILY Qty: 30 RF: 2 albuterol sulfate 2.5 mg /3 mL (0.083 %) solution for nebulization 2.5 mg INHALATION Q4-6H PRN (Reason: shortness of breath or wheezing) Qty: 90 RF: 5 omeprazole 20 mg capsule,delayed release(DR/EC) 20 mg PO BID Qty: 180 RF: 1 albuterol sulfate [Ventolin HFA] 90 mcg/actuation HFA aerosol inhaler 2 puff INHALATION Q4HP PRN (Reason: bronchospasm) Qty: 1 RF: 2 fluticasone furoate 100 mcg/actuation blister with device 1 inh inhalation DAILY Qty: 14 RF: 0 potassium chloride 10 mEq capsule, extended release 10 meq PO DAILY Qty: 90 RF: 3 cholecalciferol (vitamin D3) 2,000 unit capsule 2,000 unit PO DAILY RF: 0 methocarbamol 750 mg tablet 750 mg PO Q8H Qty: 90 RF: 3 lidocaine 5 % adhesive patch,medicated 1 patch TOP DAILY PRN (Reason: pain) Qty: 15 RF: 0 ondansetron 4 mg tablet,disintegrating 4 mg PO Q6H PRN (Reason: nausea and vomiting) Qty: 14 RF: 0 hydrocodone-acetaminophen 5-325 mg tablet 1 tab PO BID PRN (Reason: pain) Qty: 7 RF: 0 Referrals: Margi Mejia DO [Primary Care Provider] -
[2020-09-30] MEDS: diphenhydrAMINE 50 MG/ML VIAL 25 MG IV (18:31)
[2020-09-30] MEDS: SODIUM CHLORIDE 0.9% 1,000 ML 1000 ML IV (18:32)
[2020-09-30] MEDS: PROCHLORPERAZINE 10 MG/2 ML VIAL IV (18:32)
[2020-09-30 18:49] VITALS: BP 154/83; PULSE 86; RESP 18; O2SAT 99
[2020-09-30 18:57] LABS: Add Manual Diff / Slide Review NO; Basophils Absolute Auto 100 /uL (0-100); Basophils Percent Auto 0.8 % (0-2); Eosinophils Absolute Auto 0 /uL (0-450); Eosinophils Percent Auto 0.2 % (2-4); Hematocrit 42.7 % (36-46); Hemoglobin 14.4 g/dL (12.0-16.0); Lymphocytes Absolute Auto 2800 /uL (1100-4500); Lymphocytes Percent Auto 20.9 % (25-40); Mean Corpuscular HGB Conc 33.8 % (30-36); Mean Corpuscular Hemoglobin 31.6 PG (26-34); Mean Corpuscular Volume 93.7 fL (80-100); Monocytes Absolute Auto 1000 /uL (0-900); Monocytes Percent Auto 7.3 % (3-14); Neutrophils Absolute Auto 9300 /uL (1500-7000); Neutrophils Percent Auto 70.8 % (50-75); Platelet Count 414 X10^3/uL (150-400); Red Blood Cell Count 4.56 X10^6/uL (4.0-5.2); Red Cell Distribution Width 14.8 % (11.6-14.8); White Blood Cell Count 13.2 X10^3/uL (4.5-11.0)
[2020-09-30 19:13] LABS: Alanine Aminotransferase 27 IU/L (<35); Albumin 4.4 g/dL (3.5-5.0); Albumin Globulin Ratio 1.2 (1.0-2.8); Alkaline Phosphatase 67 U/L (38-126); Aspartate Aminotransferase 33 IU/L (14-36); Bilirubin Total 0.5 mg/dL (0.2-1.3); Blood Urea Nitrogen 15 mg/dL (7-17); Calcium 10.2 mg/dL (8.4-10.2); Carbon Dioxide 33 mmol/L (22-32); Chloride 97 mmol/L (98-107); Estimated Glomerular Filt Rate > 60.0 mL/min (>60); Globulin 3.6 g/dL (1.7-4.1); Glucose 100 mg/dL (70-100); HEMOLYSIS 24 (0-50); Potassium 2.8 mmol/L (3.4-5.1); Sodium 140 mmol/L (137-145)
[2020-09-30] MEDS: PRAMIPEXOLE 0.25 MG TABLET 0.5 MG PO (19:50)
[2020-09-30] MEDS: POTASSIUM CHLORIDE 20 MEQ TAB 40 MEQ PO (20:03)
--- NOTE | 2020-09-30 20:08 | PC.NURSE ---
patient is a heavy marijuana user and presents to the ED with nausea and vomiting.
[2020-09-30 20:15] VITALS: BP 113/73; PULSE 88; RESP 16; O2SAT 98
[2020-09-30 20:16] VITALS: BP 122/69; PULSE 92; RESP 16; O2SAT 98
--- NOTE | 2020-10-06 11:20 | PC.NURSE ---
Late entry: IV fluids normal saline stopped at 20:16
== END 2020-09-30 20:17 | disposition home or self-care (01) ==
PROVIDERS: Emergency Provider Emergency Medicine; PCP Family Medicine
DX: R11.2 Nausea with vomiting, unspecified (principal); E87.6 Hypokalemia
CPT/HCPCS: 36415; 80053; 81003; 82962; 85025; 96361; 96374; 96375; 99284; J0780; J1200

== ENCOUNTER → 2020-10-14 09:20 | Outpatient (CLI) | payer MEDICARE, MEDICAID, SELFPAY ==
--- NOTE | 2020-10-14 09:21 | DI.RAD.S_ITS ---
PROCEDURE: XR CALCANEOUS RT MIN 2V INDICATIONS: right heel pain TECHNIQUE: Two views of the calcaneus were acquired. COMPARISON: None. FINDINGS: Bones: There is a fragmented posterior calcaneal osteophyte, of uncertain duration. There is a prominent plantar calcaneal osteophyte. No suspicious bony lesions. Soft tissues: No suspicious calcifications. Achilles tendon appears normal. IMPRESSION: Fragmented posterior calcaneal osteophyte. The fragmentation is of uncertain chronicity. Prominent plantar calcaneal osteophyte. Dictated by: Jorge Alexander M.D. on 10/14/2020 at 9:52 Approved by: Jorge Alexander M.D. on 10/14/2020 at 10:04
== END ==
PROVIDERS: PCP Family Medicine; Referring Provider Family Medicine; Visit Provider Family Medicine
DX: M79.671 Pain in right foot (principal); M77.31 Calcaneal spur, right foot
CPT/HCPCS: 73650

== ENCOUNTER → 2020-11-25 09:15 | Outpatient (CLI) | payer MEDICARE, MEDICAID, SELFPAY ==
[2020-11-25 12:04] LABS: COVID19 -Nasal RAPID Negative (Negative)
== END ==
PROVIDERS: PCP Family Medicine; Visit Provider Surgery
DX: Z01.812 Encounter for preprocedural laboratory examination (principal); Z20.822 Contact with and (suspected) exposure to COVID-19
CPT/HCPCS: 87635; C9803

== ENCOUNTER 2020-11-28 09:50 | Day surgery (SDC) | payer MEDICARE, MEDICAID, SELFPAY ==
--- NOTE | 2020-11-28 | PATH_ITS ---
[facility] Accession Number: [id number] . 01 Material submitted: . PART A: duodenum - DUODENUM PART B: stomach - GASTRIC PART C: esophagus - ESOPHAGEAL . 02 Diagnosis: A. Duodenum, Biopsy: Duodenal mucosa with no diagnostic abnormality. Negative for active inflammation, features of sprue, dysplasia, or malignancy. . B. Stomach, Biopsy: Body type mucosa with no diagnostic abnormality. Negative for Helicobacter by immunohistochemistry. Negative for intestinal metaplasia. Negative for dysplasia and malignancy. . C. Esophagus, Biopsy: Squamocolumnar junctional mucosa with no diagnostic abnormality. Negative for intestinal metaplasia. Negative for dysplasia and malignancy. [facility] 12/01/2020 1527 Local . 02 Electronically signed: . Kylee Ulloa MD, Pathologist NPI- [id number] . 01 Gross description: . Part A: DUODENUM: Received in formalin is 1 fragment(s) of villalobos, soft tissue measuring 0.4 x 0.2 x 0.2 cm submitted entirely in 1 cassette(s) Part B: GASTRIC: Received in formalin are 2 fragment(s) of villalobos, soft tissue measuring 0.4 x 0.3 x 0.2 cm to 0.3 x 0.2 x 0.1 cm submitted entirely in 1 cassette(s) Part C: ESOPHAGEAL: Received in formalin is 1 fragment(s) of villalobos, soft tissue measuring 0.4 x 0.2 x 0.2 cm submitted entirely in 1 cassette(s) /PATT 11/29/2020 0549 Local . 02 Microscopic: . B. An immunohistochemical stain was performed to evaluate for Helicobacter organisms and is negative. The control stain showed appropriate reactivity. . * This test was developed and its performance characteristics determined by [employer]. It has not been cleared or approved by the U.S. Food and Drug Administration. The FDA has determined that such clearance or approval is not necessary. This test is used for clinical purposes. It should not be regarded as investigational or for research. . 02 Pathologist provided ICD-10: R13.10 . 02 CPT . 100443, 840262, 883414, E45374 Performed at: 01 [facility] [address] [id number] MD Az Yates MD Phone: [phone] Performed at: 02 [facility] [address] [place] [id number] MD Kylee Ulloa MD Phone: [phone]
[2020-11-28 11:02] VITALS: BP 133/73; PULSE 98; RESP 14; TEMP 36.3; O2SAT 99; BMI 47.7
[2020-11-28] MEDS: LACTATED RINGERS 1,000 ML 42 ML IV (11:54)
--- NOTE | 2020-11-28 12:16 | PM.PREOP ---
Pre-operative Note COVID-19 COVID-19 status: Negative Result date/Date tested (Pos, Neg/Pending): 11/25/20 Interval Note History & Physical reviewed/Exam performed by Physician: Yes Changes to H&P: Yes H&P completed within 30 days and has changed as indicated here:: Patient says her symptoms have improved with avoiding red foods.
--- NOTE | 2020-11-28 12:28 | PM.OP.ENDO ---
Operative Date/Time/Diagnoses Date of procedure: 11/28/20 Time of procedure: 12:28 Pre-op diagnosis: 1) Nausea, vomiting, epigastric pain. No improvement with PPI. 2) At average risk for colon cancer, due for 1st screening colonoscopy Procedure & Clinicians Study performed: Esophagogastroduodenoscopy Biopsies of duodenum, stomach, distal esophagus. Colonoscopy Same procedure as scheduled: Yes Indications: Nausea, vomiting, epigastric pain, rule out H pylori, rule out gastritis, rule out peptic ulcer disease At average risk for colon cancer, due for screening colonoscopy Anesthesiologist was consulted for anesthesia during the endoscopy because the patient's BMI is over 45, and she has severe anxiety, both of which increase the risk of cardiopulmonary complications under procedural sedation. Surgeon: Libra Garcia Procedure Notes SCOAP/Timeout: Performed Procedure in detail: The patient was brought to the room and placed in left lateral decubitus position with all bony prominences padded. A bite block was positioned in the patient's mouth to protect the lips, teeth, and tongue for the procedure. A time-out was performed and then the patient was given deep sedation with propofol by Dr. Carrillo. Once adequately sedated, the procedure was begun. The lubricated gastroscope was passed through the bite block and across the tongue and into the esophagus without incident. A tubular view of the esophagus was maintained as the scope was advanced through the esophagus and into the stomach. The scope was advanced through the stomach and to the pylorus. The scope was gently popped through the pylorus and into the duodenal bulb. The scope was flexed and advanced into the second and third portions of the duodenum. The duodenum and duodenal bulb appeared mildly erythematous. Biopsies were taken. The scope was withdrawn into the stomach. The stomach revealed some endoscopic gastritis, but no ulcers or neoplasms biopsies were taken to rule out H pylori. The scope was retroflexed and the gastric cardia was examined. The hiatus appeared normal, with no evidence of hiatal hernia, and no gaping around the scope. The scope was then straightened, and withdrawn into the esophagus. The Z-line was broken, without any significant tongues of salmon-colored mucosa coming up into the esophagus. Biopsies were taken. The scope was then withdrawn through the esophagus with a tubular view. The scope was then withdrawn from the patient and attention was turned to the colonoscopy portion of the procedure. A rectal exam was performed revealing no abnormalities. The colonoscope was then introduced to the rectum and advanced to the cecum in the usual fashion. The cecum was identified by the appendiceal orifice, the mucosal tri-fold, and the ileocecal valve. The scope was then retracted while rotating side to side and examining each mucosal fold. At the conclusion of the procedure retroflexion was performed and small grade 1-2 internal hemorrhoids without stigmata of bleeding were seen. The scope was then withdrawn from the rectum the procedure was concluded. The patient tolerated the procedure well and was transferred to the PACU in stable condition. Findings: gastritis Post-procedure Recommendations: Colonscopy in 10 years, Continue medication(s) (Omeprazole 40 mg b.i.d.) and Other recommendation (Other recommendations pending biopsy results) Follow up: as needed Disposition: PACU
[2020-11-28 12:59] VITALS: BP 117/60; PULSE 90; RESP 18; TEMP 36.8; O2SAT 92
[2020-11-28 13:04] VITALS: BP 125/73; PULSE 91; RESP 21; O2SAT 93
[2020-11-28 13:09] VITALS: BP 136/79; PULSE 87; RESP 22; O2SAT 93
[2020-11-28 13:24] VITALS: BP 149/83; PULSE 95; RESP 13; O2SAT 97
[2020-11-28 13:46] VITALS: BP 136/87; PULSE 85; RESP 17; TEMP 36.1; O2SAT 98
== END 2020-11-28 13:49 | disposition home or self-care (01) ==
PROVIDERS: PCP Family Medicine; Referring Provider Surgery; Visit Provider Surgery
PROC: 0DJ08ZZ Inspection of Upper Intestinal Tract, Via Natural or Artificial Opening Endoscopic (ICD-10-PCS; CPT 43235; principal; 2020-11-28 10:45)
PROC: 0DJD8ZZ Inspection of Lower Intestinal Tract, Via Natural or Artificial Opening Endoscopic (ICD-10-PCS; CPT 45378; 2020-11-28 10:45)
DX: Z12.11 Encounter for screening for malignant neoplasm of colon (principal); R10.13 Epigastric pain; K64.0 First degree hemorrhoids; F41.9 Anxiety disorder, unspecified; F32.9 Major depressive disorder, single episode, unspecified; K21.9 Gastro-esophageal reflux disease without esophagitis; G25.81 Restless legs syndrome; R11.2 Nausea with vomiting, unspecified; E66.01 Morbid (severe) obesity due to excess calories; Z68.42 Body mass index [BMI] 45.0-49.9, adult
CPT/HCPCS: 43239; G0121; J2704

== ENCOUNTER → 2020-12-02 11:25 | Outpatient (CLI) | payer MEDICARE, MEDICAID, SELFPAY ==
[2020-12-02 12:48] LABS: Blood Urea Nitrogen 19 mg/dL (7-17); Calcium 9.3 mg/dL (8.4-10.2); Carbon Dioxide 29 mmol/L (22-32); Chloride 105 mmol/L (98-107); Estimated Glomerular Filt Rate > 60.0 mL/min (>60); Glucose 126 mg/dL (70-100); HEMOLYSIS < 15 (0-50); Potassium 3.4 mmol/L (3.4-5.1); Sodium 141 mmol/L (137-145)
== END ==
PROVIDERS: PCP Family Medicine; Referring Provider Family Medicine; Visit Provider Family Medicine
DX: E87.6 Hypokalemia (principal)
CPT/HCPCS: 36415; 80048

== ENCOUNTER → 2021-01-02 10:12 | Outpatient (CLI) | payer MEDICARE, MEDICAID, SELFPAY ==
[2021-01-02 10:47] LABS: Blood Urea Nitrogen 16 mg/dL (7-17); Calcium 9.3 mg/dL (8.4-10.2); Carbon Dioxide 31 mmol/L (22-32); Chloride 102 mmol/L (98-107); Estimated Glomerular Filt Rate > 60.0 mL/min (>60); Glucose 114 mg/dL (70-100); HEMOLYSIS < 15 (0-50); Potassium 3.7 mmol/L (3.4-5.1); Sodium 139 mmol/L (137-145)
== END ==
PROVIDERS: PCP Family Medicine; Referring Provider Family Medicine; Visit Provider Family Medicine
DX: E87.6 Hypokalemia (principal); R89.9 Unspecified abnormal finding in specimens from other organs, systems and tissues
CPT/HCPCS: 36415; 80048; 83735

== ENCOUNTER → 2021-02-01 14:57 | Outpatient (CLI) | payer MEDICARE, MEDICAID, SELFPAY ==
[2021-02-01 16:15] LABS: Blood Urea Nitrogen 24 mg/dL (7-17); Calcium 9.2 mg/dL (8.4-10.2); Carbon Dioxide 31 mmol/L (22-32); Chloride 103 mmol/L (98-107); Estimated Glomerular Filt Rate > 60.0 mL/min (>60); Glucose 93 mg/dL (70-100); HEMOLYSIS < 15 (0-50); Potassium 3.6 mmol/L (3.4-5.1); Sodium 143 mmol/L (137-145)
== END ==
PROVIDERS: PCP Family Medicine; Referring Provider Family Medicine; Visit Provider Family Medicine
DX: E87.6 Hypokalemia (principal); I10 Essential (primary) hypertension
CPT/HCPCS: 36415; 80048

== ENCOUNTER → 2021-03-09 14:16 | Outpatient (CLI) | payer MEDICARE, MEDICAID, SELFPAY ==
--- NOTE | 2021-03-09 14:46 | DI.MRI.S_ITS ---
PROCEDURE: MR ANKLE RT WO CON INDICATIONS: Achilles tendinitis, right leg TECHNIQUE: Noncontrast sagittal T1 spin echo and T2 fast spin echo with fat saturation, axial proton density fast spin echo and T2 fast spin echo with fat saturation, coronal T1 spin echo and T2 fast spin echo with fat saturation through the ankle/hindfoot. COMPARISON: [facility], CR, XR CALCANEOUS RT MIN 2V, 10/14/2020, 9:23. FINDINGS: Image quality: Excellent. Bones and joints: No bone marrow contusions or fractures. Degenerative changes are seen at the dorsal talonavicular joint with a small nonedematous osseous fragment along the dorsal talonavicular ligament. Degenerative changes are seen at the medial cuneiform-navicular articulation and the 2nd through 4th tarsometatarsal joints with mild subchondral cystic changes. No hindfoot coalitions. No osteochondral injuries of the talar dome. Medial structures: The deep and superficial layers of the deltoid ligament appear intact. The spring ligament components are intact. The posterior tibialis, flexor digitorum longus, and flexor hallucis longus tendons are intact. The posterior tibial neurovascular bundle appears normal within the tarsal tunnel, without extrinsic mass effect. Lateral structures: The anterior talofibular, calcaneofibular, and posterior talofibular ligaments appear intact. The anterior and posterior tibiofibular ligaments appear intact. The peroneus longus and brevis tendons demonstrate normal location and morphology. The sinus tarsi demonstrates normal fatty signal, without edema, fibrosis, or cyst formation. Anterior structures: The tibialis anterior, extensor hallucis longus, and extensor digitorum longus tendons appear intact. The dorsal talonavicular ligament appears intact. Posterior and plantar structures: There is moderate insertional tendinosis of the distal Achilles tendon with mild posterior calcaneal enthesopathy. A small nonedematous plantar calcaneal spur is also seen. The proximal plantar fascia is normal in thickness. No abductor digiti quinti muscle atrophy to suggest Parker neuropathy. IMPRESSION: 1. Moderate tendinosis of the distal Achilles tendon at its insertion with enthesophyte formation. 2. Mild to moderate scattered degenerative changes within the midfoot and hindfoot. Dictated by: Satnam Neil M.D. on 03/09/2021 at 15:58 Approved by: Satnam Neil M.D. on 03/09/2021 at 16:08
== END ==
PROVIDERS: PCP Family Medicine; Referring Provider Orthopaedic Surgery Foot and Ankle Surgery; Visit Provider Orthopaedic Surgery Foot and Ankle Surgery
DX: M76.61 Achilles tendinitis, right leg (principal)
CPT/HCPCS: 73721

== ENCOUNTER → 2021-04-12 08:33 | Outpatient (CLI) | payer MEDICARE, MEDICAID, SELFPAY ==
[2021-04-12 13:07] LABS: COVID19 -Nasal RAPID Negative (Negative)
== END ==
PROVIDERS: PCP Family Medicine; Visit Provider Nurse Practitioner Family
DX: Z20.822 Contact with and (suspected) exposure to COVID-19 (principal)
CPT/HCPCS: 87635; C9803

== ENCOUNTER 2021-04-14 05:37 | Day surgery (SDC) | payer MEDICARE, MEDICAID, SELFPAY ==
[2021-04-12 12:11] VITALS: BMI 49.1
[2021-04-14] VITALS (12 sets, daily range): BP systolic 127–169; BP diastolic 74–115; PULSE 82–102; RESP 10–22; TEMP 36.2–37.2; O2SAT 93–100; BMI 49.1
[2021-04-14] MEDS: ACETAMINOPHEN 325 MG TABLET 975 MG PO (07:20)
[2021-04-14] MEDS: LACTATED RINGERS 1,000 ML 42 ML IV (07:22)
--- NOTE | 2021-04-14 07:26 | PM.PREOP ---
Pre-operative Note COVID-19 COVID-19 status: Negative Interval Note History & Physical reviewed/Exam performed by Physician: Yes Changes to H&P: No
--- NOTE | 2021-04-14 07:39 | SUR.PREOP ---
Dr Roper notified of Patient Wheezing. Alb neb ordered.
[2021-04-14] MEDS: ALBUTEROL 2.5 MG/3 ML NEB (ADULT) INH (07:42)
--- NOTE | 2021-04-14 07:48 | P.OP_ITS ---
Operative Date/Time/Diagnoses Date of procedure: 04/14/21 Time of procedure: 08:15 Pre-op diagnosis: Insertional Achilles tendinopathy Retrocalcaneal bursitis Symptomatic Humble deformity Gastroc contracture Morbid obesity BMI 50 Post-op diagnosis: same Procedure & Clinicians Procedure: 1. Insertional Achilles secondary repair CPT code 72463 2. Calcaneal osteotomy, Humble CPT code 24166 3. Gastroc recession CPT code 81833-70 This procedure was performed using a 22 modifier due to obesity 110 kg BMI 50 and resultant difficulty in positioning and exposure, the surgery took approximately twice as long as the standard Achilles debridement Same procedure as scheduled: Yes Indications: Patient is a 50-year-old female with a long history of recalcitrant posterior pain that has failed nonsurgical treatment. Plain radiographs demonstrated a large Humble deformity and a prominent enthesophyte. The patient was indicated for surgical debridement and calcaneal osteotomy with repair of the Achilles tendon and gastroc lengthening for gastroc contracture. The patient was counseled regarding the rationale for and the risks associated with this procedure. The risks included but are not limited to infection, bleeding, damage to nerves and blood vessels, wound dehiscence, rupture of the tendon, incomplete relief of pain, inability to get the range of motion back, need for further surgery, generalized dissatisfaction with the surgical procedure, inability to return to desired level of function, DVT, pulmonary embolism, cardiopulmonary complications and . All questions were answered. Patient elected to proceed. Consent was signed. Surgeon: Inna Medrano Click Yes if Unassisted: Yes Anesthesia Type: General and Local Operative Notes Findings: Tendinopathy was encountered involving the distal Achilles tendon. Sharp debridement of the tendon was performed. The Humble deformity was resected. The Achilles was repaired secondarily with Arthrex SpeedBridge system. Gastroc recession was performed improving range of motion. Preoperative range of motion 5? equinus with knee extension less than 5? dorsiflexion with the knee bent this improved to 15? of dorsiflexion with knee extension after gastroc lengthening Closure Type: primary Specimen(s): none sent Prosthetic devices, grafts, tissues, transplants, or devices: Arthrex Achilles speed bridge Estimated Blood Loss (mL): 10 Blood products transfused: none Tourniquet time (min): 55 Procedure in detail: Patient was seen in the preoperative area the site of surgery marked informed consent confirmed. Patient was taken to the operating room and general anesthetic was administered. Tourniquet was placed on the thigh. This was well padded. The patient was then positioned into the prone position on the table. All bony prominences were well padded. An SCD was placed on the contralateral lower extremity. The operative leg was prepped and draped in the standard sterile fashion. A formal time-out procedure was performed confirming the patient's side and site of surgery allergies presence of an signed consent form and administration of appropriate preoperative antibiotics which was 3 g of Ancef. All were in the room and in agreement. After exsanguination with Esmarch the tourniquet was inflated to 250 mmHg. A central midline incision tendon splitting approach was performed. Full- thickness flaps were raised. The tendon was detached from the calcaneus into medial and lateral limbs with the far lateral and medial slips remaining intact on the calcaneus, in each tendon was noted to be thickened and had areas of fibrosis, this was less than 50% so FHL tendon transfer was not performed. The fibrosis was sharply excised with a 15 blade. Once completed the Humble deformity and enthesophyte were exposed and resected under fluoroscopic guidance with a sagittal saw. The edges were smoothed with the power rasp. The retrocalcaneal bursectomy was performed. Gastroc recession: Incision was made that process of the gastrocnemius and soleus tendons in the distal 3rd of the calf. Dissection was carried through the skin subcutaneous tissue. The left SIRS saphenous vein and sural nerves were protected. The fascia was opened and the tendon isolated from the medial and lateral borders incised with lengthening approximately 2 cm. The incision was closed with 2-0 Vicryl deep fascia and 4-0 Monocryl and 3-0 nylon in the skin. At this point the Arthrex SpeedBridge suture anchor system was opened. Holes for the proximal swivel locks were drilled at the Achilles footprint and with the distal holes approximately 15 mm spread between the holes. These were then tapped. The proximal SwiveLock anchors were placed and the suture tape brought through the distal Achilles tendon. The spare FiberWire sutures were used to tack down the tendon these were tied. Next 1 blue and 1 white limb from each anchor was then brought across to to the distal holes. The depth of the anchor was marked out and the tension adjusted and the distal swivel locks were placed into the bone and secured in the bone with care to countersink these to reduce prominence. This achieved a stable and knotless repair of the Achilles to the footprint. Next HD 2. FiberWire was used to close the midline split in the Achilles tendon. Ankle was taken through range of motion there was no gapping or lift off. The tourniquet was released, hemostasis was achieved, and the wound was irrigated and the fascia and paratenon were closed with 3-0 PDS suture. Skin was closed with 4-0 Monocryl and 3-0 nylon. A bulky dressing splint was applied and equinus. Patient was woken from anesthesia and taken to recovery room in good condition. There no immediate complications from the procedure. Post-operative Condition: stable Disposition: PACU Plan for aftercare: Patient will be strict elevation strict nonweightbearing on the operative extremity. They will be on aspirin for DVT prophylaxis. Will follow up in 2 weeks for a incision check and either go into a boot with heel lifts or a cast depending on wound healing.
[2021-04-14] MEDS: CEFAZOLIN 3 GM IN 0.9 % NACL 100 ML IV (07:58)
--- NOTE | 2021-04-14 08:27 | SUR.OPER ---
Prone on padded OR bed, head in foam head support, gel chest rolls, gel pad under knees, pillow under lower legs, toes free of pressure, arms secured on padded arm boards at <90 degrees abduction. Safety belt at thigh.
[2021-04-14] MEDS: BUPIVACAINE 0.25% (PF) 30 ML, EPINEPHrine 0.15 MG INJ (08:37)
--- NOTE | 2021-04-14 09:53 | SUR.PHASEI ---
Patient to PACU after general anesthesia with Dr Roper and RN. Report at bedside. Jaw lift done by Dr Roper and oral airway inserted. o2 sat 92%. Oxygen via NC in oral airway at 5L placed. Pt breathing unassisted.
[2021-04-14] MEDS: fentaNYL 100 MCG/2 ML INJ IV ×3 (10:07→10:17)
[2021-04-14] MEDS: OXYCODONE IR 5 MG TABLET PO (10:17)
--- NOTE | 2021-04-14 11:03 | SUR.PHASEI ---
Pt transffered to OPD. Bedside SBAR report to Maida Garcia.
== END 2021-04-14 11:45 | disposition home or self-care (01) ==
PROVIDERS: PCP Family Medicine; Referring Provider Orthopaedic Surgery Foot and Ankle Surgery; Visit Provider Orthopaedic Surgery Foot and Ankle Surgery
PROC: (CPT 27650; principal; 2021-04-14 07:45)
DX: M76.61 Achilles tendinitis, right leg (principal); M77.51 Other enthesopathy of right foot and ankle; Q79.8 Other congenital malformations of musculoskeletal system; M72.2 Plantar fascial fibromatosis; M92.61 Juvenile osteochondrosis of tarsus, right ankle; E66.01 Morbid (severe) obesity due to excess calories; Z68.43 Body mass index [BMI] 50.0-59.9, adult; I10 Essential (primary) hypertension; J45.909 Unspecified asthma, uncomplicated; K21.9 Gastro-esophageal reflux disease without esophagitis
CPT/HCPCS: 27654; 28100; 27687; 82962; J0171; J0330; J0690; J2250; J2405; J2704; J3010; J7613

== ENCOUNTER → 2022-12-21 13:07 | Outpatient (CLI) | payer OTHER, MEDICAID, SELFPAY ==
--- NOTE | 2022-12-21 | DI.MRI.S_ITS ---
PROCEDURE: MR CERVICAL SPINE WO CON INDICATIONS: Radiculopathy, cervical region TECHNIQUE: Noncontrast sagittal T1 spin echo and T2 fast spin echo, sagittal STIR, foraminal oblique sagittal T2 fast spin echo, and axial gradient echo or T2 fast spin echo through the cervical spine. COMPARISON: [facility], MR, MR CERVICAL SPINE WO CON, 07/21/2018, 9:49. FINDINGS: Image quality: Excellent. Alignment and Curvature: There is straightening of normal cervical lordosis. Bone Marrow: There is no marrow edema. No acute vertebral body compression fracture. Spinal Cord: Visualized spinal cord has normal size and signal. No cerebellar tonsillar herniation. Paraspinous Soft Tissues: No paravertebral masses. Prevertebral soft tissues are normal in thickness. C2-C3: Normal appearance. C3-C4: Loss of disc signal is seen. Broad-based disc bulge and superimposed central disc herniation. Bilateral facet hypertrophic changes are noted. There is moderate central canal stenosis and moderate to severe bilateral neural foraminal narrowing. Bulging disc likely impinging on bilateral exiting C4 nerve roots. C4-C5: Diffuse disc bulge and bilateral facet hypertrophic changes are seen with mild central canal stenosis, moderate to severe left-sided neural foraminal narrowing and moderate right-sided neural foraminal narrowing. Bulging disc likely contacting bilateral exiting C5 nerve roots. C5-C6: Loss of disc height and disc signal is seen. There is broad-based disc bulge and bilateral facet hypertrophic changes causing moderate central canal stenosis and severe right worse than left bilateral neural foraminal narrowing. Bulging disc likely impinging on bilateral exiting C6 nerve roots. C6-C7: Loss of disc height and disc signal is seen. Broad-based, more left-sided disc herniation and bilateral facet hypertrophic changes are seen causing mild central canal stenosis and severe left-sided neural foraminal narrowing. Mild right-sided neural foraminal narrowing is also noted. C7-T1: Normal appearance. IMPRESSION: 1. Degenerative disc disease throughout cervical spine causing various degrees of central canal stenosis and bilateral neural foraminal narrowing as described in detail above. 2. No marrow edema. No acute compression fracture or spondylolisthesis. No abnormal cervical spinal cord signal. Dictated by: Arturo Ferris M.D. on 12/21/2022 at 17:49 Approved by: Arturo Ferris M.D. on 12/21/2022 at 17:55
== END ==
PROVIDERS: Referring Provider Orthopaedic Surgery; Visit Provider Orthopaedic Surgery
DX: M50.11 Cervical disc disorder with radiculopathy, high cervical region (principal)
CPT/HCPCS: 72141

== ENCOUNTER → 2023-08-20 10:24 | Outpatient (CLI) | payer MEDICARE, MEDICAID, SELFPAY ==
[2023-08-20 11:07] LABS: Add Manual Diff / Slide Review NO; Basophils Absolute Auto 0 /uL (0-100); Basophils Percent Auto 0.4 % (0-2); Eosinophils Absolute Auto 100 /uL (0-450); Eosinophils Percent Auto 0.6 % (2-4); Hematocrit 37.9 % (36-46); Hemoglobin 13.1 g/dL (12.0-16.0); Lymphocytes Absolute Auto 2500 /uL (1100-4500); Lymphocytes Percent Auto 25.9 % (25-40); Mean Corpuscular HGB Conc 34.6 % (30-36); Mean Corpuscular Volume 95.6 fL (80-100); Monocytes Absolute Auto 700 /uL (0-900); Monocytes Percent Auto 7.3 % (3-14); Neutrophils Absolute Auto 6400 /uL (1500-7000); Neutrophils Percent Auto 65.8 % (50-75); Platelet Count 307 X10^3/uL (150-400); Red Blood Cell Count 3.97 X10^6/uL (4.0-5.2); White Blood Cell Count 9.8 X10^3/uL (4.5-11.0)
[2023-08-20 11:55] LABS: BUN Creatinine Ratio 24.4 (6-22); Blood Urea Nitrogen 19 mg/dL (7-17); Calcium 9.3 mg/dL (8.4-10.2); Carbon Dioxide 34 mmol/L (22-32); Chloride 102 mmol/L (98-107); Estimated Glomerular Filt Rate > 60 mL/min (>60); Glucose 98 mg/dL (70-100); HEMOLYSIS < 15 (0-50); Potassium 3.4 mmol/L (3.4-5.1); Sodium 141 mmol/L (137-145)
== END ==
PROVIDERS: PCP Internal Medicine; Referring Provider Orthopaedic Surgery Orthopaedic Surgery of the Spine; Visit Provider Orthopaedic Surgery Orthopaedic Surgery of the Spine
DX: Z01.812 Encounter for preprocedural laboratory examination (principal)
CPT/HCPCS: 36415; 80048; 85025

== ENCOUNTER → 2023-08-27 13:14 | Outpatient (CLI) | payer MEDICARE, MEDICAID, SELFPAY ==
--- NOTE | 2023-08-27 13:16 | DI.CT.S_ITS ---
PROCEDURE: CT LUMBAR SPINE WO CON INDICATIONS: Spinal stenosis, lumbar region TECHNIQUE: Noncontrast 3 mm thick sections acquired from the T12 level to the sacrum. Sagittal and coronal reformats were constructed. For radiation dose reduction, the following was used: automated exposure control. COMPARISON: [facility], CT, CT ABDOMEN PELVIS W CON, 07/25/2020, 16:35. [facility], MR, MR LUMBAR SPINE WITHOUT CONTRAST, 08/15/2023, 14:03. FINDINGS: Image quality: Excellent. Bones: Minimal anterolisthesis of L4 on L5. There is multilevel facet arthropathy, worse at L4-5 and L5-S1. Mild multilevel disc height loss with degenerative endplate changes and spurring is present. No high-grade osseous central canal stenosis. No high-grade osseous neural foraminal stenosis. No pars interarticularis defects. No suspicious osseous lesions. Soft tissues: No retroperitoneal masses or hematomas. Visualized aorta is normal in caliber. Mild atherosclerotic vascular calcifications. IMPRESSION: Mild multilevel degenerative changes of the lumbar spine. No high-grade central canal or neural foraminal stenosis. Dictated by: Samson Mario M.D. on 08/27/2023 at 16:16 Approved by: Samson Mario M.D. on 08/27/2023 at 16:22
== END ==
LOC: CT 13:15
PROVIDERS: PCP Internal Medicine; Referring Provider Orthopaedic Surgery Orthopaedic Surgery of the Spine; Visit Provider Orthopaedic Surgery Orthopaedic Surgery of the Spine
DX: M48.061 Spinal stenosis, lumbar region without neurogenic claudication (principal); M47.816 Spondylosis without myelopathy or radiculopathy, lumbar region; M47.817 Spondylosis without myelopathy or radiculopathy, lumbosacral region
CPT/HCPCS: 72131

== ENCOUNTER 2023-09-25 11:12 | Inpatient (IN) | payer MEDICARE, MEDICAID, SELFPAY ==
[2023-09-19 08:41] VITALS: BMI 49.4
[2023-09-25] VITALS (12 sets, daily range): BP systolic 100–190; BP diastolic 58–114; PULSE 87–119; RESP 12–20; TEMP 35.9–37.1; O2SAT 91–99; BMI 47.3
--- NOTE | 2023-09-25 | DI.RAD.S_ITS ---
PROCEDURE: XR LUMBAR SPINE 2-3V INDICATIONS: L3-4 TLIF TECHNIQUE: 2 intraoperative views of the lumbar spine were acquired. COMPARISON: [facility], CT, CT LUMBAR SPINE WO CON, 08/27/2023, 13:19. [facility], CR, L-SPINE 2-3 VIEWS, 02/20/2013, 20:37. FINDINGS: L3-L4 pedicle screw fixation with intervertebral body spacer. Hardware projects in the expected location. IMPRESSION: Intraoperative guidance provided. Dictated by: David Joyce M.D. on 09/26/2023 at 9:48 Approved by: David Joyce M.D. on 09/26/2023 at 9:49
[2023-09-25] MEDS: LACTATED RINGERS 1,000 ML 42 ML IV ×2 (12:56→15:30)
[2023-09-25 13:00] LABS: Add Manual Diff / Slide Review NO; Basophils Absolute Auto 100 /uL (0-100); Basophils Percent Auto 0.7 % (0-2); Eosinophils Absolute Auto 0 /uL (0-450); Eosinophils Percent Auto 0.2 % (2-4); Hematocrit 44.6 % (36-46); Hemoglobin 15.3 g/dL (12.0-16.0); Lymphocytes Absolute Auto 2100 /uL (1100-4500); Lymphocytes Percent Auto 23.1 % (25-40); Mean Corpuscular HGB Conc 34.2 % (30-36); Mean Corpuscular Hemoglobin 32.7 PG (26-34); Mean Corpuscular Volume 95.5 fL (80-100); Monocytes Absolute Auto 700 /uL (0-900); Monocytes Percent Auto 7.2 % (3-14); Neutrophils Absolute Auto 6400 /uL (1500-7000); Neutrophils Percent Auto 68.8 % (50-75); Platelet Count 380 X10^3/uL (150-400); Red Blood Cell Count 4.67 X10^6/uL (4.0-5.2); Red Cell Distribution Width 13.9 % (11.6-14.8); White Blood Cell Count 9.3 X10^3/uL (4.5-11.0)
[2023-09-25 13:10] LABS: Alanine Aminotransferase 33 IU/L (<35); Albumin 4.4 g/dL (3.5-5.0); Albumin Globulin Ratio 1.3 (1.0-2.8); Alkaline Phosphatase 51 U/L (38-126); Aspartate Aminotransferase 29 IU/L (14-36); BUN Creatinine Ratio 21.9 (6-22); Bilirubin Total 0.8 mg/dL (0.2-1.3); Blood Urea Nitrogen 16 mg/dL (7-17); Calcium 9.8 mg/dL (8.4-10.2); Carbon Dioxide 27 mmol/L (22-32); Chloride 108 mmol/L (98-107); Estimated Glomerular Filt Rate > 60 mL/min (>60); Globulin 3.3 g/dL (1.7-4.1); Glucose 91 mg/dL (70-100); HEMOLYSIS < 15 (0-50); Potassium 3.4 mmol/L (3.4-5.1); Sodium 142 mmol/L (137-145); Total Protein 7.7 g/dL (6.3-8.2)
--- NOTE | 2023-09-25 13:14 | PM.PREOP ---
Pre-operative Note Interval Note History & Physical reviewed/Exam performed by Physician: Yes Changes to H&P: No
[2023-09-25] MEDS: CEFAZOLIN 2 GM/100 ML PREMIX 100 ML IV ×2 (14:18→22:41)
--- NOTE | 2023-09-25 14:41 | SUR.OPER ---
Prone on spine table, head in foam head support, padded chest and pelvic supports, gel pad at knees, lower legs supported by pillows; nipples, genitalia and toes free of pressure, arms secured on foam padded arm boards at <90 degrees abduction. Tape over blanket at thigh secured to table.
[2023-09-25] MEDS: BUPIVACAINE 0.25% (PF) 60 ML, EPINEPHrine 0.15 MG INJ (14:44)
[2023-09-25] MEDS: BUPIVACAINE LIPOSOME 266 MG/20 ML VIAL INJ (14:45)
--- NOTE | 2023-09-25 17:08 | P.OP_ITS ---
Operative Date/Time/Diagnoses Date of procedure: 09/25/23 Time of procedure: 14:00 Pre-op diagnosis: 1. L3-4 far lateral disc herniation 2. L3-4 foraminal stenosis and radiculopathy Post-op diagnosis: same Procedure & Clinicians Procedure: 1. L3-4 Postero-lateral and posterior interbody fusion 2. L3-4interbody cage placement. 3. L3-4 decompressive laminectomy with bilateral facetecomies 4. L3-4 Posterior non-segmental instrumentation 5. [place] of bone marrow from iliac crest 6. Utilization of microsurgical technique and operating microscope 7. Utilization of robotic assisted navigation Same procedure as scheduled: Yes Indications: Patient has been having acute onset back pain and worsening lumbar radiculopathy for few month after rolling over in bed. Patient was found to have a large L3-4 far lateral disc extrusion with severe neuroforaminal stenosis and compression of the left L3 nerve root correlating with her radicular symptoms. Patient failed multiple conservative management with worsening pain weakness and numbness in her lower extremity. Due to patient's pathology and her morbid obesity, who was discussed with her that she should proceed with a transfemoral lumbar interbody fusion with facetectomy and laminectomy to fully decompress the neural foramen. Patient has been having difficulty performing activity of daily living. After discussing risks benefits of treatment options, patient elected proceed with surgery. Surgeon: Fadia Neal Security Messenger: Janessa Lafleur Click Yes if Unassisted: No Anesthesia Type: General Operative Notes Closure Type: primary Specimen(s): none sent Prosthetic devices, grafts, tissues, transplants, or devices: Globus CREO MIS screws, Rise cage Estimated Blood Loss (mL): 50 Blood products transfused: none Procedure in detail: Patient was seen in the preoperative area. Risks and benefits of the surgery was discussed with the patient. Informed consent was obtained from the patient and placed in the chart. Surgical site was marked. Patient was taken to the operative room. General anesthesia was administered. Prophylactic antibiotic was given to the patient less than 30 min before the incision was made. Patient was placed into a prone position on the Jaylon table. Patient's back was then prepped and draped in the sterile fashion. Time-out was performed at this time. After patient was prepped and draped, patient's PSIS was palpated and marked bilaterally. Small 1 cm incision was made over the PSIS for placement of the reference probes. Two trocar was placed into the PSIS 1 on each side. The reference probe was attached to the trocar of the reference apparatus. At this time the C-arm imaging was used to confirm AP and lateral of L3-L4 vertebrae and merged the C-arm imaging using the [employer] robotic navigation system with the CT of the lumbar spine. After successful merging was completed and confirmed, skin marker was used to darien out the skin incision using the [employer] robotic arm. Bilateral incision was made at this time. Pre templated trajectory was used and guided using the [employer] robotic navigation system for bilateral L3 L4 pedicle screw placement. This was done by using the robotic arm to guide the high-speed bur to make a cortical entry point. Next a drill was placed also using the robotic arm and guided using the navigation system drilling partially through bilateral L3, L4 pedicles. Next L3, L4 pedicle screws it was pre templated and measured was placed onto the power experienced truck driver and inserted into the pedicles bilaterally. After all 4 screws were placed C-arm imaging was taken of both AP and lateral to confirm the michael cement. Excellent placement of the screws were confirmed and a matched precisely with the pre planned screw placement using the navigation system. MARs retractor was inserted using [employer] guidence. Globus MARS retractors was placed inside the incision and docked onto the [id number]. Using microsurgical technique and operating microscope, a L3 laminectomy and L3-4 facetectomy was performed using a Kerrison rongeur. The laminectomy and facetectomy was performed in order to decompress patient's cauda equina as well as the nerve roots exiting at the L3-4 neuroforamen. Patient was found have severe lateral recess and neural foramen stenosis which was fully decompressed after the laminectomy facetectomy, as well as L3-4 diskectomy. Large piece of extruded disc fragment was found in the neural foramen and lateral recess which was fully resected during the process of decompression. More than 75% of the facets were removed during the process of decompression rendering L3-4 level grossly unstable and required a fusion procedure at the same time. The disc space at L3-4 was identified, and a total diskectomy was performed at L3-4 level. The endplates were decorticated using a rasp and shaver. The total diskectomy and decortication was performed at L3-4 level in order to to accomplish a L3-4 fusion. The local bone from the laminectomy and facetectomy was saved for local bone grafting. After the total diskectomy and decortication was completed, DBM bone graft material was combined with local bone that was harvested earlier. Patient is morbidly obese. Patient's body habitus made the approach and access to the L3-4 disc space significantly more challenging. Facet resection significantly facilitated the approach and visualization of patient's nerve root as well as the extruded disc fragment and patient's neural foramen. At this time, a separate skin is incision was made over the iliac crest. A Jamshidi needle was inserted into the iliac crest through a separate skin incision. 5 cc of bone marrow aspiration was obtained through the separate skin incision using a Jamshidi needle from the iliac crest. The bone marrow aspiration was combined with local bone and the DBM bone grafting material. The bone grafting material was placed into the L3-4 interbody space along with expandable cage. One cage was inserted into the L3-4 interbody space along with bone graft material. The cage was expanded to its maximum height using the torque limiting screwdriver. The disc preparation as well as the cage insertion were also performed under navigation guidance. After the cage was placed, AP and lateral C-arm imaging was taken to confirm placement of the cage and excellent position was confirmed. Globus MARS retractor was inserted and docked onto the L3-4 posterolateral gutter on the right side. Using the power drill, posterior-lateral decortication was performed at L3-4 level until bleeding cortical bone was identified. The remaining bone grafting material was placed into the L3-4 posterior lateral gutter he order to accomplish posterolateral fusion at the L3- 4 level. At this time the tulips were attached to the L3, L4 pedicle screw shanks. After measuring the length of the rods, they were inserted into the tulips of the pedicle screws and locked in place using locking caps and torque limiting screwdriver bilaterally. Total 4 caps and 2 titanium rods was used in order to complete the posterior instrumentation construct. After all the hardware was placed, and confirmed with AP and lateral C-arm imaging, the wound was then irrigated with sterile normal saline and packed with Ray-Rosamaria gauze for 3 min to accomplish hemostasis. After the gauze was removed the deep fascia was closed with #1 Vicryl suture. The subcutaneous layer was c losed with 2-0 Vicryl. The skin was closed with skin rosalva. Patient tolerated the procedure well. There were no complications. Neuro monitoring system was used to monitor patient's neurologic status throughout entire procedure. There was no disturbance of the neural monitoring signals throughout the case. The Operation could not have been safely performed without compromising the technical result or length of the procedure, without the assistance of a skilled surgical technology instructor. The surgical technology instructor was medically necessary for proper positioning, retraction and manipulation of instruments, proper exposure, surgical preparation, and manipulation of tissue. Complications: none Post-operative Condition: stable Disposition: PACU Plan for aftercare: Admit to inpatient hospital
[2023-09-25] MEDS: HYDROMORPHONE 1 MG INJ IV ×2 (17:26→17:33)
[2023-09-25] MEDS: hydrOXYzine 50 MG/ML INJ IM (17:30)
[2023-09-25] MEDS: ACETAMINOPHEN IV 1,000 MG/100 ML VIAL 400 MG IV (17:30)
[2023-09-25] MEDS: ALBUTEROL 2.5 MG/3 ML NEB (ADULT) INH (17:46)
[2023-09-25] MEDS: OXYCODONE IR 5 MG TABLET PO (18:05)
[2023-09-25] MEDS: methocarbamoL 500 MG TABLET 1000 MG PO (18:17)
--- NOTE | 2023-09-25 19:08 | SUR.PHASEI ---
Pt to PACU with oral airway which was removed at 719. Pt awoke restless and complaining/moaning of pain, turned self on left side, wanted to lie on stomach. Medicated for pain, moved from stretcher to hospital bed. See MAR for meds. Pt with evangelista complexion per baseline pre-op. Denied SOB. Albuterol Neb given for coarse sounds, good cough. O2 sats on RA WNL after neb treatment and BP/HR within [address] Marcos ok for transfer to floor with pt restarting home BP meds tonight including Clonidine. Medicated by Anesthesia with Zofran prior to departure for mild nausea. Pt complained of needing to void, PurWik placed. Pt unable to void yet. Transfered to floor on room air in bed with belongings bag by Lindsay RUFF. SBAR report called to Teresa RUFF.
[2023-09-25] MEDS: HYDROMORPHONE 0.5 MG INJ IV ×2 (21:02→23:26)
[2023-09-25] MEDS: ONDANSETRON 4 MG/2 ML INJ IV (21:02)
[2023-09-25] MEDS: LACTATED RINGERS 1,000 ML 125 ML IV (21:03)
[2023-09-25] MEDS: cloNIDine 0.1 MG TABLET PO (22:01)
[2023-09-25] MEDS: DOCUSATE 100 MG CAPSULE PO (22:01)
[2023-09-25] MEDS: PANTOPRAZOLE DR 40 MG TABLET PO (22:01)
[2023-09-25] MEDS: SENNOSIDES 8.6 MG TABLET 17.2 MG PO (22:02)
[2023-09-26] MEDS: HYDROMORPHONE 0.5 MG INJ IV ×2 (01:29→05:11)
[2023-09-26 02:34] VITALS: BP 143/60; PULSE 84; RESP 20; TEMP 36.2; O2SAT 98
[2023-09-26] MEDS: ONDANSETRON 4 MG/2 ML INJ IV ×2 (02:41→08:22)
[2023-09-26] MEDS: LACTATED RINGERS 1,000 ML 125 ML IV (05:55)
[2023-09-26] MEDS: CEFAZOLIN 2 GM/100 ML PREMIX 100 ML IV (05:56)
[2023-09-26 08:27] VITALS: BP 158/84; PULSE 105; RESP 18; TEMP 36.7; O2SAT 98
--- NOTE | 2023-09-26 08:34 | PC.NURSE ---
Patient given zofran for 50cc emesis. She is resting. Will start po pain medication today, dressing to lower back cdi. CMS wnl and has been at patients bedside. She is able to sit up and log roll properly.
[2023-09-26] MEDS: ACETAMINOPHEN 325 MG TABLET 650 MG PO (10:11)
[2023-09-26] MEDS: cloNIDine 0.1 MG TABLET PO ×2 (10:12→14:59)
[2023-09-26] MEDS: CHOLECALCIFEROL (VITAMIN D3) 1,000 UNIT TABLET 2000 UNIT PO (10:12)
[2023-09-26] MEDS: CHLORTHALIDONE 25 MG TABLET PO (10:12)
[2023-09-26] MEDS: DOCUSATE 100 MG CAPSULE PO (10:12)
[2023-09-26] MEDS: OXYCODONE IR 10 MG TABLET PO ×2 (10:12→13:31)
[2023-09-26] MEDS: POTASSIUM CHLORIDE 10 MEQ TAB 20 MEQ PO (10:15)
[2023-09-26] MEDS: VENLAFAXINE ER 75 MG CAP PO (10:15)
[2023-09-26] MEDS: PANTOPRAZOLE DR 40 MG TABLET PO (10:15)
[2023-09-26] MEDS: PRAMIPEXOLE 0.25 MG TABLET PO ×2 (10:15→14:59)
--- NOTE | 2023-09-26 13:17 | PT.IIE ---
Current Diagnoses Spinal stenosis, lumbar region without neurogenic claudication (09/25/23) Other intervertebral disc displacement, lumbar region (09/25/23) Surgery Performed Operation Date: 09/25/23 13:45 Actual Procedures p L3-4 TLIF with posterior instrumentation -Robot - Fadia Neal MD Surgical History (Last Updated 09/19/23 @ 09:14 by Sandhya Little, RN) Anesthesia History of carpal tunnel repair (~1996) History of endometrial ablation (~11/28/18) History of repair of left rotator cuff History of shoulder surgery (~2010) Hx of Achilles tendon repair (04/14/21) Status post delivery (~1993) Status post delivery (~1995) Status post trigger finger release (~2015) Status post tubal ligation (~1995) Medical History (Last Updated 09/19/23 @ 09:20 by Sandhya Little RN) Abnormal Pap smear of cervix Anxiety Asthma Bone spur of right foot Chronic back pain Depression Dyslexia Fibromyalgia Foot pain GERD (gastroesophageal reflux disease) Hemorrhoids Lumbar spine pain Morbid obesity with body mass index (BMI) greater than or equal to 50 (08/11/14) Piriformis muscle pain Right Achilles tendinitis RLS (restless legs syndrome) Sciatic leg pain Shoulder pain Sore muscles Superior glenoid labrum lesion of left shoulder Traumatic tear of supraspinatus tendon of left shoulder Physical Therapy Inpatient Evaluation/Re-Eval M1 PT/OT-IP Prior Functional Status Start: 09/26/23 12:35 Freq: NEEDED Status: Active Protocol: Document 09/26/23 12:36 MB (Rec: 09/26/23 13:16 MB [id number]) Medical Review Prior Functional Status Medical History Reviewed Yes Diet/Fluid Consistency Regular Communication WNLs Mobility and Gait I to mod I with RW Activities of Daily Living and IADL's Assistance from significant other Social History Household Members significant other Living Arrangements Mobile home Number of Floors (Floors) One Floor Number of Stairs To Enter/Railing? No steps to enter Home Environment Walk in Shower Home Equipment Front Wheel Walker,Tub Transfer Bench,Hand Held Shower,Typecasting Machine Operator,Grab Bars Near Toilet Employment Status Unknown Additional Social History Comment Low toilet M2 PT-IP Current Condition Start: 09/26/23 12:35 Freq: NEEDED Status: Active Protocol: Document 09/26/23 12:36 MB (Rec: 09/26/23 13:16 MB [id number]) Physical Therapy Current Condition Current Condition Evaluation Date 09/26/23 Treatment Diagnosis Lumbar fusion M3 PT-IP Subjective Start: 09/26/23 12:35 Freq: NEEDED Status: Active Protocol: Document 09/26/23 12:36 MB (Rec: 09/26/23 13:16 MB [id number]) Subjective Physical Therapy Visit Type Type Initial Evaluation Visit Start Time 12:36 Visit Stop Time 13:00 Number of NAPHTHOL SOAPING MACHINE OPERATOR Visits 0 Physical Therapy Visit Comments Patient Comments Pt dangling EOB upon arrival and she and significant other have been waiting for therapies and she wishes to get up. They state that ns did not allow her to get up until therapy arrived. Therapy Pain Assessment Pain When Pain Assessed At Rest Pain Present Pain Present Pain Reported Location Bilateral Back Intensity 10 Scale Used Numeric (0 - 10) M4 PT-IP Mobility and Gait Start: 09/26/23 12:35 Freq: NEEDED Status: Active Protocol: Document 09/26/23 12:36 MB (Rec: 09/26/23 13:16 MB [id number]) PT-Bed Mobility Assessment Rolling Type of Rolling Bilateral Level of Assist Standby Assistance Supine to Sit Supine to Sit Standby Assistance,1 Person Assistance Sit to Supine Sit to Supine Standby Assistance,1 Person Assistance Scooting Scooting to Edge of Bed Standby Assistance PT-Transfer Assessment Sit to and From Stand Sit to and from Stand Standby Assistance,1 Person Assistance,Use of Upper Extremities Equipment Transfer Assistive Device Gait Belt,Front Wheeled Walker Orthotic/Prosthetic Devices or Brace: No Transfers Transfer Destination Chair Transfer Technique Ambulation Transfer Ability Level of Assist Standby Assistance Comments Mobility Comments Pt mobilizes well, SBA and significant other is nearby and very helpful and attentive Gait Assessment Gait Gait Assistance Required: Standby Assistance Distance (Feet) 100 Able to Maintain Weight Bearing Status Yes During Gait Assistive Devices Assistive Device Gait Belt,Front Wheeled Walker Orthotic/Prosthetic Devices or Brace: No Gait Deviations General Gait Pattern Antalgic,Wide Based Gait Factors Limiting Gait Function Factors Limiting Gait Function Pain Comments Gait Comments Pt ambulates well with RW and communicates pain in back, PT manages IV pole PT-Balance Assessment Sitting Balance and Reactions Static Sitting Balance Ability Normal Dynamic Sitting Balance Ability Normal Standing Balance and Reactions Static Standing Balance Ability Good Dynamic Standing Balance Ability Good Device Used RW M5 PT-IP Objective Assessments Start: 09/26/23 12:35 Freq: NEEDED Status: Active Protocol: Document 09/26/23 12:36 MB (Rec: 09/26/23 13:16 MB [id number]) Orientation Orientation/Cognition Level of Alertness Alert Orientation Name,Age,Birthday,Month,Date, Year,Day of Week,Place, Situation Language Function Ability No Deficits Noted Safety Awareness Understands Safety Issues Memory Description No Deficits Noted Gross Range of Motion Upper Extremity ROM Impairments Defer to OT Lower Extremity ROM Assessment Within Functional Limits Impairments Functional with mobility Strength Lower Extremity Strength Assessment Within Functional Limits Comments Strength Comments LE strength functional for mobility Sensation Assessment Comments Sensation Comments Pt reports left leg symptoms have resolved post-op/that she has no left leg pain M6 PT-IP Treatment Start: 09/26/23 12:35 Freq: NEEDED Status: Active Protocol: Document 09/26/23 12:36 MB (Rec: 09/26/23 13:16 MB [id number]) Physical Therapy Treatment Education Education Provided Precautions,Weight Bearing Status,Post-Op Packet,Safety M7 PT-IP Assessment and Plan Start: 09/26/23 12:35 Freq: NEEDED Status: Active Protocol: Document 09/26/23 12:36 MB (Rec: 09/26/23 13:16 MB [id number]) PT Summary Assessment and Plan Potential Rehabilitation Potential Good Status of Condition at Evaluation Evolving Summary Impairments Pain Assessment Summary Pt is a 53 y/o presenting with 10/10 back pain post-op lumbar fusion and she states her left leg pain is resolved. She does a great job with log rolling and mobility in general and her significant other is supportive and nearby for treatment. Pt has a RW at home and uses hospital walker well. She has no further acute PT needs. Recommend OPPT when ordered by surgeon and pt reports a history of positional vertigo type symptoms and PT may be able to clear that outpatient which will help balance, safety and quality of life. Frequency of Treatment Frequency Of Treatment Discharge Precautions Lumbar Precautions Log Roll,No Twisting,Limit Bending,Lifting Restriction of 10 lbs,Gait Belt above Incisional Area Weight Bearing Status Weight Bearing Status Weight Bear as Tolerated Recommendations To Nursing Amount of Assist Needed Standby Assistance,1 Person Assist Discharge Recommendations PT Discharge Recommendations Home with 07/01 Assist Available,Outpatient PT Transportation Needs at Discharge Private Vehicle
--- NOTE | 2023-09-26 13:30 | OT.IP.EVAL ---
Current Diagnoses Spinal stenosis, lumbar region without neurogenic claudication (09/25/23) Other intervertebral disc displacement, lumbar region (09/25/23) Surgery Performed Operation Date: 09/25/23 13:45 Actual Procedures p L3-4 TLIF with posterior instrumentation -Robot - Fadia Neal MD Past Medical History (Last Updated 09/19/23 @ 09:20 by Sandhya Little RN) Abnormal Pap smear of cervix Anxiety Asthma Bone spur of right foot Chronic back pain Depression Dyslexia Fibromyalgia Foot pain GERD (gastroesophageal reflux disease) Hemorrhoids Lumbar spine pain Morbid obesity with body mass index (BMI) greater than or equal to 50 (08/11/14) Piriformis muscle pain Right Achilles tendinitis RLS (restless legs syndrome) Sciatic leg pain Shoulder pain Sore muscles Superior glenoid labrum lesion of left shoulder Traumatic tear of supraspinatus tendon of left shoulder Surgical History (Last Updated 09/19/23 @ 09:14 by Sandhya Little RN) Anesthesia History of carpal tunnel repair (~1996) History of endometrial ablation (~11/28/18) History of repair of left rotator cuff History of shoulder surgery (~2010) Hx of Achilles tendon repair (04/14/21) Status post delivery (~1993) Status post delivery (~1995) Status post trigger finger release (~2015) Status post tubal ligation (~1995) Occupational Therapy Inpatient Evaluation/Re-Eval M1 PT/OT-IP Prior Functional Status Start: 09/26/23 13:51 Freq: NEEDED Status: Active Protocol: Document 09/26/23 13:05 [facility] (Rec: 09/26/23 14:07 [facility] [id number]) Medical Review Prior Functional Status Medical History Reviewed Yes Diet/Fluid Consistency Regular Communication WNLs Mobility and Gait I to mod I with RW Activities of Daily Living and IADL's Assistance from significant other as needed and had pain during ADL and IADL needs. Social History Household Members significant other Living Arrangements Mobile home Number of Floors (Floors) One Floor Number of Stairs To Enter/Railing? No steps to enter Home Environment Walk in Shower Home Equipment Front Wheel Walker,Tub Transfer Bench,Hand Held Shower,Gate Clerk,Grab Bars Near Toilet Employment Status Unknown Additional Social History Comment Low toilet M2 OT-IP Current Condition Start: 09/26/23 13:51 Freq: Status: Active Protocol: Document 09/26/23 13:05 [facility] (Rec: 09/26/23 14:07 [facility] [id number]) Occupational Therapy Current Condition Current Condition Evaluation Date 09/26/23 Treatment Diagnosis S/P L3-4 TLIF Diagnosis Onset Date 09/25/23 Post Operative Precautions Lumbar Precautions Log Roll,No Twisting,Limit Bending,Lifting Restriction of 10 lbs,Gait Belt above Incisional Area M3 OT- IP Subjective and Pain Start: 09/26/23 13:51 Freq: Status: Active Protocol: Document 09/26/23 13:05 [facility] (Rec: 09/26/23 14:07 [facility] [id number]) OT- Subjective Occupational Therapy Visit Type Type Initial Evaluation Visit Start Time 13:05 Visit Stop Time 13:30 Occupational Therapy Visit Comments Patient Comments Pt just heading to the bathroom when OT arrived. Patient/Caregiver Goals To go home. OT Pain Assessment Pain When Pain Assessed During Mobility Pain Present Pain Present Pain Reported M4 OT- IP ADL's Start: 09/26/23 13:51 Freq: Status: Active Protocol: Document 09/26/23 13:05 [facility] (Rec: 09/26/23 14:07 [facility] [id number]) OT LEX-Sndm-Vutacnf General Evaluation Self-Feeding Ability Independent OT ADL-Grooming General Evaluation Grooming Ability Independent OT ADL-Oral Care Comments Oral Care Comments Not performed. Educated to hinge at her hips or just spit into a cup to best follow her back precautions. OT ADL-Dressing General Eval Lower Body Dressing Ability Standby Assistance Areas Needing Assistance Underpants/Brief Comments OT Dressing Comments Pt able to practice use of home office claim specialist to silvia boxers over her feet. Showed pt socks aid but states to have S.O just assist. OT ADL-Toileting General Evaluation Toileting Ability Standby Assistance Comments OT Toileting Comments Pt able to stand/crouch to wipe appropriately after urinating. Suggested getting a toilet paper aid, use of wet one, and assist as needed after a bowel movement. OT ADL-Bathing Comments OT Bathing Comments Educated to cover the dressing for showering needs to prevent it from getting wet. Pt's back dressing a little bulky and left pt's nurse message of whether dressing can be changed to a most lower profile dressing so that her clothing does not catch it. M5 OT- IP IADL's Start: 09/26/23 13:51 Freq: Status: Active Protocol: Document 09/26/23 13:05 [facility] (Rec: 09/26/23 14:07 [facility] [id number]) OT-Instrumental Activities of Daily Living Deficits IADL Deficits Identified Deficits Home Safety Awareness Awareness of Need for Assistance at Home Good Awareness Ability to Problem Solve Emergency Able to Problem Solve Situations Meal Preparation Meal Preparation Caregiver Provides Assist Exceptional Student Education Teacher Exceptional Student Education Teacher Caregiver Provides Assist M6 OT- IP Functional Cognition Start: 09/26/23 13:51 Freq: Status: Active Protocol: Document 09/26/23 13:05 [facility] (Rec: 09/26/23 14:07 [facility] [id number]) Cognitive Factors Limiting Selfcare Function Cognitive Ability Level of Alertness Alert Patient Orientation Name,Age,Birthday,Month,Date, Year,Day of Week,Place, Situation Attention Span Ability Capable of Focused Attention, Capable of Sustained Attention OT- Vision and Hearing OT- Vision Assessment Visual Attentiveness WFL Occular Pursuits WFL M7 OT- IP Mobility and Balance Start: 09/26/23 13:51 Freq: Status: Active Protocol: Document 09/26/23 13:05 [facility] (Rec: 09/26/23 14:07 [facility] [id number]) OT-Transfer Assessment Sit to and From Stand Sit to and from Stand Standby Assistance Comments Mobility Comments SBA with FWW in the room and to come to stand and sitting down. OT- Balance Assessment Sitting Balance and Reactions Static Sitting Balance Ability Good Dynamic Sitting Balance Ability Good Standing Balance and Reactions Static Standing Balance Ability Good Dynamic Standing Balance Ability Fair M8 OT- IP Objective Assessments Start: 09/26/23 13:51 Freq: Status: Active Protocol: Document 09/26/23 13:05 [facility] (Rec: 09/26/23 14:07 [facility] [id number]) OT Gross Range of Motion Upper Extremity Range of Motion Assessment Within Functional Limits OT Strength Upper Extremity Strength Assessment Within Functional Limits M9 OT- IP Assessment and Plan Start: 09/26/23 13:51 Freq: Status: Active Protocol: Document 09/26/23 13:05 [facility] (Rec: 09/26/23 14:07 [facility] [id number]) OT Summary Assessment and Plan Potential Rehabilitation Potential Excellent Analytic Complexity at Evaluation Low Summary OT Impairments Pain,Balance,Functional Mobility,Dressing,Toileting, Shower Transfers Progress Towards Goals Safe For Discharge Assessment Summary Pt doing well and has a very supportive significant other to be able to assist her at home. Pt would benefit from a toilet paper aid to assist with hygiene needs. Pt to go home with assist when medically stable. Pt to be discharged from OT services as doing well and wanting to go home. Goals Dressing Goal Independent Toileting Goal Independent,Toilet Paper Aid Bathing Goal Standby Assistance Shower Transfer Goal Independent Days to Meet Goals 1 Frequency of Treatment Frequency Of Treatment Once a Day Treatment Plan OT Treatment Plan Discharge Planning Discharge Recommendations OT Discharge Recommendations Home with Assistance Transportation Needs at Discharge Private Vehicle
--- NOTE | 2023-09-26 14:48 | CM.DANOTE ---
Initial DCP Assessment Note Pt is a 53 yo female, resident of [place], now POD#1 from TLIF PCP: Brianna Chacon Payer: [facility] QI-1 Program Reviewed chart, pt discussed in multidisciplinary rounds this morning. Therapy has cleared pt for return home w/family to assist and pt has planned for home. Met w/patient and SO to confirm. Patient appreciative for the visit. No barriers identified at this time to patient's safe discharge home w/family to assist; close outpatient f/u recommended. CM team will plan to follow closely in case any DC needs or concerns arise. EDUARDO Rojas Discharge Planning/Care Management CM Discharge Assessment Start: 09/26/23 14:44 Freq: Status: Active Protocol: Document 09/26/23 14:44 SARAH (Rec: 09/26/23 14:48 SARAH [id number]) Discharge Planning Assessment Assigned Senior Cost Estimator EDUARDO [place] DPOA/Assigned Designee Name Kylee ChapinLORA Contact Information [phone] Advance Directives? No History Provided By Patient,Significant Other, Medical Record Prior Living Arrangements Mobile home Household Members significant other Type of transporation used prior to Drives own vehicle admit Independent with ADL's Yes: Walker and poor activity tolerance r/t pain Is patient alert and oriented? Yes Needs Assistance With Bathing,Meal Prep,Home Chores / Shopping Patient/Family Preference OP PT Therapy Barriers to Discharge No Comment Home w/SO to assist throughout recovery Discharge Plan Home Transportation Arrangement SO Referrals Initiated None needed
[2023-09-26] MEDS: VENLAFAXINE ER 75 MG CAP 150 MG PO (14:59)
--- NOTE | 2023-09-26 15:08 | P.DS_ITS ---
History of Present Illness History of Present Illness Chief complaint: TLIF Narrative: Karime is postop day #1 s/p L3-[address] Neal Overall reports she is doing well today, she states her pre-operative numbness and tingling has resolved in her bilateral lower legs. Pain is moderate-severe but well controlled with medication during her stay. She is overall happy with the results of her surgery so far. Patient lives at home with who is willing and able to aid in post-op recovery and care. She states her home is set up with grab bars already, there are no stairs in her home. They report they feel comfortable d/c to home today. She worked w/ PT already today and reports it went well and has been able to get up and use the restroom on her own with the use of a walker. Denies fever, chills, chest pain, SOB, nausea, vomiting. Operative Date/Time/Diagnoses Date of procedure: 09/25/23 Time of procedure: 14:00 Pre-op diagnosis: 1. L3-4 far lateral disc herniation 2. L3-4 foraminal stenosis and radiculopathy Post-op diagnosis: same Procedure & Clinicians Procedure: 1. L3-4 Postero-lateral and posterior interbody fusion 2. L3-4interbody cage placement. 3. L3-4 decompressive laminectomy with bilateral facetecomies 4. L3-4 Posterior non-segmental instrumentation 5. [place] of bone marrow from iliac crest 6. Utilization of microsurgical technique and operating microscope 7. Utilization of robotic assisted navigation Same procedure as scheduled: Yes Indications: Patient has been having acute onset back pain and worsening lumbar radiculopathy for few month after rolling over in bed. Patient was found to have a large L3-4 far lateral disc extrusion with severe neuroforaminal stenosis and compression of the left L3 nerve root correlating with her radicular symptoms. Patient failed multiple conservative management with worsening pain weakness and numbness in her lower extremity. Due to patient's pathology and her morbid obesity, who was discussed with her that she should proceed with a transfemoral lumbar interbody fusion with facetectomy and laminectomy to fully decompress the neural foramen. Patient has been having difficulty performing activity of daily living. After discussing risks benefits of treatment options, patient elected proceed with surgery. Surgeon: Fadia Neal Teacher Lip Reading: Janessa Beh Click Yes if Unassisted: No Anesthesia Type: General Discharge Providers Provider Date of admission: 09/25/23 11:12 Discharge Date: 09/26/23 Primary care physician: Brianna Chacon MD Consults: 09/25/23 18:54 Consult to Occupational Therapy Evaluate & Treat Comment: Physician Instructions: Evaluate and treat Consult to Physical Therapy Evaluate & Treat Comment: Sxs of BPPV prior to surg; Cyala if appropriate Physician Instructions: Evaluate and Treat Discharge provider: Lida Castaneda PA-C Summary Hospital Course Discharge Diagnosis: L3-4 far lateral disc herniation and L3-4 foraminal stenosis and radiculopathy s/p L3-4 TLIF Hospital Course: Uncomplicated hospital course. Exam Vital Signs (past 8 hours): - 09/26/23 08:27 Temperature 98.0 F Pulse Rate 105 H Respiratory Rate 18 Blood Pressure 158/84 H Pulse Oximetry 98 Oxygen Flow Rate 0 Oxygen Delivery Method Room Air Oxygen Flow Rate 0 Narrative Exam Narrative: Patient initally lying in bed comfortably during the interview today, she then progressed to standing up with her walker while I was in the room. Resp Effort & Inspection: normal respiratory effort and able to speak in complete sentences Cardio Other: Extremities appear well perfused, brisk capillary refill. Skin Other: Clean and dry dressings intact over the lumbar spine area. No drainage. Neuro General: patient alert, patient awake and patient oriented x3 Cognition: normal cognition Speech: speech normal Other: Sensation intact to bilateral lower extremities. Extrem Other: 5/5 strength with DF, PF, EHL, knee flexion bilaterally. Calves soft and nontender bilaterally Psych Appearance: grossly normal Mental Status: mental status grossly normal Speech and Movement: speech and movement normal Objective Labs 09/25/23 12:46 09/25/23 12:46 [facility] Medical History (Updated 09/19/23 @ 09:20 by Sandhya Little RN) Dyslexia Fibromyalgia Hemorrhoids Right Achilles tendinitis Bone spur of right foot Piriformis muscle pain Sciatic leg pain Superior glenoid labrum lesion of left shoulder GERD (gastroesophageal reflux disease) Traumatic tear of supraspinatus tendon of left shoulder RLS (restless legs syndrome) Abnormal Pap smear of cervix Asthma Depression Anxiety Sore muscles Shoulder pain Lumbar spine pain Foot pain Chronic back pain Morbid obesity with body mass index (BMI) greater than or equal to 50 (02/25/15) Surgical History (Updated 09/19/23 @ 09:14 by Sandhya Little RN) History of repair of left rotator cuff Hx of Achilles tendon repair (04/14/21) History of endometrial ablation (~11/28/18) Anesthesia Status post trigger finger release (~2015) History of shoulder surgery (~2010) Status post tubal ligation (~1995) Status post delivery (~1995) History of carpal tunnel repair (~1996) Status post delivery (~1993) Family History Grandfather Cancer Mother Cervical cancer Early menopause Goiter Hypothyroid Diabetes mellitus Hypertension Father Dementia Social History marital status: unknown household members: significant other Smoking Status: Former smoker alcohol intake: never substance use type: marijuana Discharge Assessment & Plan Assessment and Plan Assessment: Stable s/p L3-4 TLIF. Plan of Treatment: 1) plan to discharge to home today with 2) Continue multimodal pain management with ice to the back as needed for pain control or heat pack for muscle spasms as needed. Postop medications have been sent to retail pharmacy. 3) mechanical DVT prophylaxis. 4) no deep bending, twisting, lifting more than 10 lb. 5) Keep dressing intact, clean, dry until 2 week postop appointment. no soaking the incision site in pools or tubs. no topical ointments or creams to the incision site. 5) Follow up at [facility] in 2 weeks for a postop appointment, staple removal and wound check. All patient's questions were answered, they demonstrates understanding and are in agreement with the plan. Call our office if any questions or concerns arise. Discharge Plan Discharge Plan Patient Disposition: Home Discharge orders & Medications Prescriptions: New ondansetron 4 mg Tablet,Disintegrating 4 mg sublingual Q4HR PRN (Reason: Nausea) Qty: 14 0RF docusate sodium 100 mg Capsule 100 mg PO BID Qty: 30 0RF acetaminophen 325 mg Tablet 650 mg PO Q6H PRN (Reason: Fever/Mild Pain (1-3)) Qty: 90 0RF Continued [marijuana] 1 dose miscellaneous PRN PRN (Reason: as directed) Qty: 0 methocarbamol 750 mg tablet 750 mg PO Q8H PRN (Reason: pain) Qty: 270 0RF chlorthalidone 25 mg tablet 25 mg PO DAILY Qty: 90 0RF Hold Instructions: Patient changed provider albuterol sulfate [Ventolin HFA] 90 mcg/actuation HFA aerosol inhaler 2 puff INHALATION Q4HP PRN (Reason: bronchospasm) Qty: 1 2RF Rx Instructions: use with spacer. omeprazole 40 mg capsule,delayed release(DR/EC) 40 mg PO BID Qty: 60 0RF Rx Instructions: NO FURTHER REFILLS. MUST ESTABLISH WITH NEW PROVIDER FOR FURTHER REFILLS. THANK YOU! albuterol sulfate 2.5 mg /3 mL (0.083 %) solution for nebulization 2.5 mg INHALATION Q4-6H PRN (Reason: shortness of breath or wheezing) Qty: 90 5RF norethindrone acetate 5 mg tablet 5 mg PO TID cholecalciferol (vitamin D3) 2,000 unit capsule 2,000 unit PO DAILY promethazine 25 mg tablet 25 mg PO Q6H PRN (Reason: nausea and vomiting) Qty: 30 0RF clonidine HCl 0.2 mg tablet 0.2 mg PO DAILY venlafaxine 225 mg tablet extended release 24hr 225 mg PO DAILY potassium chloride 20 mEq tablet extended release 20 meq PO DAILY pramipexole 0.5 mg tablet 0.5 mg PO BID pramipexole 0.5 mg Tablet 0.5 mg PO BEDTIME PRN (Reason: Restless Leg(S)) lidocaine 5 % adhesive patch,medicated 1 patch TOP DAILY PRN (Reason: pain) Qty: 15 0RF Rx Instructions: leave on most painful area for up to 12 hrs ondansetron 4 mg tablet,disintegrating 4 mg PO Q6H PRN (Reason: nausea and vomiting) Qty: 14 0RF Follow up/Referrals: Brianna Chacon MD [Primary Care Provider] - Fadia Neal MD [Physician] - 10/10/23 2:50 pm (Follow up w/ Aguila Nava PA-C, at [facility] office in [place].) Diet/Activity/Treatments Diet: Diet as Tolerated Activity: No deep bending or twisting at the waist. No lifting more than 10 pounds. Cold/Heat Therapy: Heating pad to low back as needed for pain. Skin/Wound/Dressing Care Report to your healthcare provider any signs of infection, such as:: chills, fever, night sweats, unusual drainage and unusual redness Dressing: May shower. Keep dressing as dry as possible. If dressing becomes wet or dirty, may remove and replace with clean, dry gauze. No bathing or otherwise soaking incisions. Do not apply any creams, lotions, or ointments to incisions. Visit Report/Discharge Packet Instructions: DI for Prescription Opioid Use, DI for Transforaminal Lumbar Interbody Fusion Stand Alone Forms: Patient Portal/API, Stroke Signs & Symptoms Discharge Data Primary Care Provider: Brianna Chacon [facility] Deep Vein Thrombosis/Pulmonary Embolism Present on Admission: No
== END 2023-09-26 16:00 | disposition home or self-care (01) | DRG 454 ==
PROVIDERS: Nurse Anesthetist, Certified Registered; Admitting Provider Orthopaedic Surgery Orthopaedic Surgery of the Spine; PCP Internal Medicine; Referring Provider Orthopaedic Surgery Orthopaedic Surgery of the Spine; Visit Provider Orthopaedic Surgery Orthopaedic Surgery of the Spine
PROC: 0SG00AJ Fusion of Lumbar Vertebral Joint with Interbody Fusion Device, Posterior Approach, Anterior Column, Open Approach (ICD-10-PCS; principal; 2023-09-25 13:45)
DX: M48.061 Spinal stenosis, lumbar region without neurogenic claudication (principal); Z68.43 Body mass index [BMI] 50.0-59.9, adult; M51.16 Intervertebral disc disorders with radiculopathy, lumbar region; Z87.891 Personal history of nicotine dependence; E66.01 Morbid (severe) obesity due to excess calories; J45.909 Unspecified asthma, uncomplicated; K21.9 Gastro-esophageal reflux disease without esophagitis; Z82.5 Family history of asthma and other chronic lower respiratory diseases; Z88.6 Allergy status to analgesic agent; Z88.8 Allergy status to other drugs, medicaments and biological substances; F32.A Depression, unspecified; M79.7 Fibromyalgia
CPT/HCPCS: 72100; 76000; 80053; 85025; 97161; 97165; 97535; C1713; C9290; J0136; J0171; J0330; J0690; J1100; J1170; J2250; J2405; J2704; J3010; J3410; J7613